=== PATIENT | male | born 1950 | race Caucasian/White ===

== ENCOUNTER 2021-07-16 07:14 | Day surgery (SDC) | payer MEDICARE, SELFPAY ==
[2021-07-05 13:54] VITALS: BMI 36.6
--- NOTE | 2021-07-12 09:59 | HO.ANESPROP2 ---
Documented by User: Joana Hicks NP 07/12/21 10:00 HPI - Anesthesia Eval Consult details Narrative: 71yo M for Upper Endoscopy and Colonoscopy Eliquis PMFSH Past Medical History Medical History (Updated 07/05/21 @ 13:57 by Kathy Calderon, RN) Anxiety and depression Arrhythmia Min's esophagus Diabetes Elevated cholesterol GERD (gastroesophageal reflux disease) History of atrial fibrillation HTN (hypertension) Hx of sepsis Hx of skin cancer, basal cell On beta kenrikc at home 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 Ulcerative colitis Surgical History Surgical History (Updated 07/05/21 @ 13:44 by Kathy Calderon, RN) H/O rotator cuff surgery History of back surgery History of cardiac radiofrequency ablation History of esophagogastroduodenoscopy (EGD) Hx of Achilles tendon repair Hx of bilateral cataract extraction Hx of cervical discectomy Hx of colonoscopy Hx of umbilical hernia repair S/P correction of deviated nasal septum S/P medial meniscus repair of right knee Social History Social History Are you a primary care technician to a significant other at home: No Do you presently have visiting nurse or other home services: No Alcohol intake: former Year quit: 1999 Patient Tobacco Use Status: Never used Tobacco Use of substances other than those prescribed or required for medical reasons: No Are you DNR?: No Advance Directives: No Advance Directives Information Provided: No Advance Directives on File: No Meds Allergies Allergy/AdvReac Type Severity Reaction Status Date / Time morphine [MORPHINE] AdvReac Mild N/V Verified 07/16/21 06:09 Home Medications Medication Instructions Recorded Confirmed Last Taken Type acetaminophen 500 mg tablet 1,000 mg PO Q6H PRN 07/05/21 07/05/21 Unknown History apixaban 5 mg tablet (Eliquis) 5 mg PO BID 07/05/21 07/05/21 07/14/21 History atorvastatin 10 mg tablet 10 mg PO BEDTIME 07/05/21 07/05/21 Unknown History balsalazide 750 mg capsule 2,250 mg PO TID 07/05/21 07/05/21 Unknown History lisinopril 40 mg tablet 40 mg PO DAILY 07/05/21 07/05/21 Unknown History metformin 1,000 mg tablet 1,000 mg PO BID 07/05/21 07/05/21 Unknown History metoprolol succinate 50 mg capsule 50 mg PO BEDTIME 07/05/21 07/05/21 Unknown History sprinkle, ext. release 24 hr hhnibiegpfhi-belfvsqp-jmtpdc tablet 1 tab PO DAILY 07/05/21 07/05/21 Unknown History omeprazole 20 mg capsule,delayed 20 mg PO BID 07/05/21 07/05/21 07/16/21 History release tamsulosin 0.4 mg capsule 0.4 mg PO BEDTIME 07/05/21 07/05/21 Unknown History tizanidine 2 mg capsule 2 mg PO TID PRN 07/05/21 07/05/21 Unknown History Exam Exam Date and Time: July 12, 2021 0959 Height,Weight and Vital Signs: Height 5 ft 10 in Weight 115.666 kg Assessment and Plan Assessment Anesthesia Assessment: Chart Reviewed Documented by User: Karen Shea MD 07/16/21 08:43 PMFSH Past Medical History Medical History (Updated 07/05/21 @ 13:57 by Kathy Calderon, RN) Anxiety and depression Arrhythmia Min's esophagus Diabetes Elevated cholesterol GERD (gastroesophageal reflux disease) History of atrial fibrillation HTN (hypertension) Hx of sepsis Hx of skin cancer, basal cell On beta kenrick at home 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 Ulcerative colitis Functional capacity: independent ambulation Family History Family history of problems with anesthesia: No Surgical History Surgical History (Updated 07/05/21 @ 13:44 by Kathy Calderon, RN) H/O rotator cuff surgery History of back surgery History of cardiac radiofrequency ablation History of esophagogastroduodenoscopy (EGD) Hx of Achilles tendon repair Hx of bilateral cataract extraction Hx of cervical discectomy Hx of colonoscopy Hx of umbilical hernia repair S/P correction of deviated nasal septum S/P medial meniscus repair of right knee History of Problems with Anesthesia: No Social History Social History Are you a primary care technician to a significant other at home: No Do you presently have visiting nurse or other home services: No Alcohol intake: former Year quit: 1999 Patient Tobacco Use Status: Never used Tobacco Use of substances other than those prescribed or required for medical reasons: No Are you DNR?: No Advance Directives: No Advance Directives Information Provided: No Advance Directives on File: No Meds Allergies Allergy/AdvReac Type Severity Reaction Status Date / Time morphine [MORPHINE] AdvReac Mild N/V Verified 07/16/21 06:09 Home Medications Medication Instructions Recorded Confirmed Last Taken Type acetaminophen 500 mg tablet 1,000 mg PO Q6H PRN 07/05/21 07/05/21 Unknown History apixaban 5 mg tablet (Eliquis) 5 mg PO BID 07/05/21 07/05/21 07/14/21 History atorvastatin 10 mg tablet 10 mg PO BEDTIME 07/05/21 07/05/21 Unknown History balsalazide 750 mg capsule 2,250 mg PO TID 07/05/21 07/05/21 Unknown History lisinopril 40 mg tablet 40 mg PO DAILY 07/05/21 07/05/21 Unknown History metformin 1,000 mg tablet 1,000 mg PO BID 07/05/21 07/05/21 Unknown History metoprolol succinate 50 mg capsule 50 mg PO BEDTIME 07/05/21 07/05/21 Unknown History sprinkle, ext. release 24 hr vsafgfcdcfme-tlabftjt-hyzsmj tablet 1 tab PO DAILY 07/05/21 07/05/21 Unknown History omeprazole 20 mg capsule,delayed 20 mg PO BID 07/05/21 07/05/21 07/16/21 History release tamsulosin 0.4 mg capsule 0.4 mg PO BEDTIME 07/05/21 07/05/21 Unknown History tizanidine 2 mg capsule 2 mg PO TID PRN 07/05/21 07/05/21 Unknown History Exam Airway Mallampati Class: IV TM Dist: >3cm Neck ROM: Full Heart: irreg. Lungs: CTA Assessment and Plan Final Anesthetic Review Family History of Problems with Anesthesia: No History of Problems with Anesthesia: No NPO: Yes ASA Class: III Final Preanesthetic Review: No Changes in Pt Med Stat, Meds/Allgs Chart Reviewed, Consent Obtained/Reviewed and Anes Risks/Benef Reviewed Patient Risk: Intermediate Procedure Risk: Low Anesthetic Plan Anesthetic Plan: MAC: Disposition: Standard PACU Documented by User: Beckie Wiley MD 07/16/21 08:24 [facility] Past Medical History Medical History (Updated 07/05/21 @ 13:57 by Kathy Calderon, RN) Anxiety and depression Arrhythmia Min's esophagus Diabetes Elevated cholesterol GERD (gastroesophageal reflux disease) History of atrial fibrillation HTN (hypertension) Hx of sepsis Hx of skin cancer, basal cell On beta kenrick at home 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 Ulcerative colitis Surgical History Surgical History (Updated 07/05/21 @ 13:44 by Kathy Calderon, RN) H/O rotator cuff surgery History of back surgery History of cardiac radiofrequency ablation History of esophagogastroduodenoscopy (EGD) Hx of Achilles tendon repair Hx of bilateral cataract extraction Hx of cervical discectomy Hx of colonoscopy Hx of umbilical hernia repair S/P correction of deviated nasal septum S/P medial meniscus repair of right knee Social History Social History Are you a primary care technician to a significant other at home: No Do you presently have visiting nurse or other home services: No Alcohol intake: former Year quit: 1999 Patient Tobacco Use Status: Never used Tobacco Use of substances other than those prescribed or required for medical reasons: No Are you DNR?: No Advance Directives: No Advance Directives Information Provided: No Advance Directives on File: No Meds Allergies Allergy/AdvReac Type Severity Reaction Status Date / Time morphine [MORPHINE] AdvReac Mild N/V Verified 07/16/21 06:09 Home Medications Medication Instructions Recorded Confirmed Last Taken Type acetaminophen 500 mg tablet 1,000 mg PO Q6H PRN 07/05/21 07/05/21 Unknown History apixaban 5 mg tablet (Eliquis) 5 mg PO BID 07/05/21 07/05/21 07/14/21 History atorvastatin 10 mg tablet 10 mg PO BEDTIME 07/05/21 07/05/21 Unknown History balsalazide 750 mg capsule 2,250 mg PO TID 07/05/21 07/05/21 Unknown History lisinopril 40 mg tablet 40 mg PO DAILY 07/05/21 07/05/21 Unknown History metformin 1,000 mg tablet 1,000 mg PO BID 07/05/21 07/05/21 Unknown History metoprolol succinate 50 mg capsule 50 mg PO BEDTIME 07/05/21 07/05/21 Unknown History sprinkle, ext. release 24 hr rtgrolordidc-ubnushxa-fqiuis tablet 1 tab PO DAILY 07/05/21 07/05/21 Unknown History omeprazole 20 mg capsule,delayed 20 mg PO BID 07/05/21 07/05/21 07/16/21 History release tamsulosin 0.4 mg capsule 0.4 mg PO BEDTIME 07/05/21 07/05/21 Unknown History tizanidine 2 mg capsule 2 mg PO TID PRN 07/05/21 07/05/21 Unknown History Exam Airway Mallampati Class: III Heart: rrr Assessment and Plan Assessment Anesthesia Assessment: Anesthesia Plan Discussed
[2021-07-16 07:17] VITALS: BP 148/68; PULSE 83; RESP 17; TEMP 36.6; O2SAT 95
[2021-07-16 07:27] LABS: Glucose, Whole Blood 148 mg/dL (60-115)
[2021-07-16] MEDS: Lactated Ringers 1,000 ML 100 ML IVCONT (07:46)
[2021-07-16] MEDS: Sodium Phosphate,Mono-Dibasic 133 ML ENEMA PR (07:46)
[2021-07-16 07:54] VITALS: BMI 23.8
[2021-07-16 07:55] VITALS: BMI 36.6
--- NOTE | 2021-07-16 08:00 | PC.NURSE ---
yellow liquid results from [facility]
[2021-07-16 09:39] VITALS: BP 156/78; PULSE 98; RESP 16; TEMP 36.2; O2SAT 98
--- NOTE | 2021-07-16 09:44 | PM.OP ---
Brief Operative Note Date of Service: 07/16/21 Pre-op diagnosis: Min's, Screening Post-op diagnosis: other (Same, Hiatal hernia, Colon polyp) Procedure: EGD with biopsies, Colonoscopy to the cecum and TI with bx, hot snare polypectomy, and placement of 3 Resolution clips Surgeon: Elias Bosch Anesthesia: MAC Was an Sales And Events Coordinator used for this Procedure?: No Estimated blood loss (mL): 3.0 Pathology: other (A. EG Junction at 39cm B. Ascending colon C. Transverse colon polyp) Condition: stable Disposition: PACU
[2021-07-16 09:54] VITALS: BP 164/78; PULSE 75; RESP 16; TEMP 36.6; O2SAT 97
--- NOTE | 2021-07-16 10:56 | OP_ITS ---
SURGEON: Elias Bosch MD PREOPERATIVE DIAGNOSIS: POSTOPERATIVE DIAGNOSIS: PROCEDURE PERFORMED: Esophagogastroduodenoscopy with biopsies and colonoscopy to the cecum and terminal ileum with biopsies, hot snare polypectomy, and placement of 3 resolution clips. Full consent was obtained from him for both procedures, including risks of bleeding and perforation. ESTIMATED BLOOD LOSS: COMPLICATIONS: ANESTHESIA: Monitored anesthesia care. ASSISTANTS: SPECIMENS: PREOPERATIVE DIAGNOSES: History of Min's esophagus, history of ulcerative colitis, history of adenomatous polyp of colon. POSTOPERATIVE DIAGNOSES: History of Min's esophagus, history of ulcerative colitis, history of adenomatous polyp of colon, hiatal hernia, colon polyp, diverticulosis, internal hemorrhoids. DESCRIPTION OF PROCEDURE: The patient was placed in the left lateral decubitus position. The Olympus video gastroscope was passed in the posterior oropharynx and upper esophagus under direct vision. The scope was passed slowly into the distal esophagus. The gastroesophageal junction appeared at 39 cm. There was a very minimal irregularity consistent with reflux and small areas of possible Min's mucosa, less than 1 cm. There was no sign of esophagitis, mass, nor ulceration. The scope entered the stomach. There was a small hiatal hernia. The scope was advanced to pylorus and the duodenum was cannulated to the descending portion. The duodenum including the bulb appeared normal without mass or ulceration. The scope was withdrawn back to the stomach. The gastric antrum and body appeared normal with good peristalsis. Scope was retroflexed visualizing the proximal stomach carefully, which appeared normal, without any sign of mass or ulceration. Scope was straightened and withdrawn back to the esophagus. Multiple biopsies were obtained at the EG junction at 39 cm. Proximal to this the esophageal mucosa appeared normal. The scope was withdrawn from the patient. He was turned around for colonoscopy. The digital rectal exam revealed no abnormalities. The [employer] video pediatric colonoscope was entered into the rectum and advanced easily to the the cecum. Once in the cecum, I did identify normal-appearing cecal pouch with appendiceal orifice and a normal-appearing ileocecal valve. The terminal ileum was cannulated and appeared normal. The scope was withdrawn back in the colon. The entire cecum and ileocecal valve appeared normal. Scope was slowly withdrawn assessing all mucosal surfaces carefully. Preparation was excellent. I did not visualize any sign of active colitis nor angiodysplasia. Random biopsies were obtained in the ascending colon. In the transverse colon, between the previously placed submucosal ink markings was some polypoid tissue approximately 2 cm in size. It appeared to be grossly hyperplastic as the previous biopsies had shown. However, given the size of it, I did use the hot snare to remove the majority of it and recovered pieces by suction. Post-polypectomy, there might have been some residual tissue, but there was no bleeding. 3 resolution clips were applied with good deployment and good hemostasis. I did not visualize any other polyps. There was no sign of any active colitis. No further biopsies were obtained as he has to go back on Eliquis. The sigmoid colon had some mild diverticulosis. In the rectum, scope was retroflexed visualizing some internal hemorrhoids and some scarring in relation to previous colitis, but no sign of any polyps. Scope was straightened and withdrawn from the patient. He tolerated both procedures well and was returned to recovery area in stable condition. IMPRESSION: 1. Colon polyp, status post hot snare polypectomy with placement of 3 resolution clips and transverse colon. 2. Mild diverticulosis. 3. Rule out dysplasia. 4. Internal hemorrhoids. 5. Hiatal hernia, history of Min's esophagus. PLAN: Results of biopsies will be checked. If there is no dysplasia within the Min's esophagus and the colon biopsies do not show any sign of adenoma nor dysplasia, I would then recommend a repeat upper endoscopy and colonoscopy within 3 years. He was advised to resume Eliquis tomorrow. He was advised to continue his current regimen for the ulcerative colitis with the balsalazide. I advised him to see me in 6 months for a followup visit, but to call sooner as needed. This has been discussed with his . MD NATHALIE Bowling/FAVIOLA / [phone] CORKY
--- NOTE | 2021-07-16 12:26 | HO.POSTANES ---
Post Anesthesia Evaluation Post Anesthesia Evaluation Vital Signs: Vital Signs Temp Pulse Resp BP Pulse Ox 07/16/21 09:54 97.8 F 75 16 164/78 H 97 07/16/21 09:39 97.2 F 98 16 156/78 H 98 07/16/21 07:17 98 F 83 17 148/68 H 95 Anesthesia: Monitored Mental Status: Awake Pain Control: Satisfactory Nausea/Vomiting: None Hydration: Adequate Anesthesia-Related Issues: No Anes. Related Issues
== END 2021-07-16 10:41 | disposition home or self-care (01) ==
PROVIDERS: PCP Internal Medicine; Visit Provider Internal Medicine
PROC: (CPT 45385; principal; 2021-07-16 08:20)
DX: K51.30 Ulcerative (chronic) 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s (principal); Z86.010 Personal history of colon polyps; K63.5 Polyp of colon; K57.30 Diverticulosis of large intestine without perforation or abscess without bleeding; K64.8 Other hemorrhoids; K22.719 Barrett's esophagus with dysplasia, unspecified; K21.9 Gastro-esophageal reflux disease without esophagitis; K44.9 Diaphragmatic hernia without obstruction or gangrene; I10 Essential (primary) hypertension; G47.33 Obstructive sleep apnea (adult) (pediatric); I48.91 Unspecified atrial fibrillation; Z79.01 Long term (current) use of anticoagulants; E11.9 Type 2 diabetes mellitus without complications; Z79.4 Long term (current) use of insulin; Z79.899 Other long term (current) drug therapy; Z99.89 Dependence on other enabling machines and devices
CPT/HCPCS: 45385; 45380; 43239; 82947; 88305

== ENCOUNTER → 2022-12-11 10:41 | Outpatient (BNVA) | payer MEDICARE, SELFPAY | PROVIDERS: PCP Internal Medicine; Visit Provider Neurological Surgery | DX: M54.9 Dorsalgia, unspecified (principal); Z98.1 Arthrodesis status | CPT/HCPCS: 99211 ==

== ENCOUNTER 2023-09-17 13:07 | Outpatient (AMB) | payer MEDICARE, SELFPAY ==
--- NOTE | 2023-09-17 13:08 | MHC.OFFVIS ---
Intake Vital Signs 09/17/23 13:20 Height 5 ft 10 in Weight 239 lb BMI 34.3 BP 130/60 Blood Pressure Location Lt brachial Position Sitting Respiration 14 Pulse 79 Pulse Source Pulse Oximeter Pulse Oximetry (%) 94 Oxygen Delivery Method Room Air Intake Visit Reasons: NECK PAIN/CERVICALGIA/CONFIRM Intake Note: Patient comes in for initial visit was referred by spine center. Reports pain 6/10. Allergies morphine [MORPHINE] Adverse Reaction (Mild, Verified 09/17/23 13:20) N/V HPI HPI Comments History of Present Illness Details Mr. Adama Camacho is very pleasant 73 years old gentleman who presents in my office with complains on pain in the cervical spine and lumbar spine he is willing to concentrate more on the pain in the cervical spine today. He states that he can not leave with pain in the lumbar spine at this moment. He reports that he had numerous surgeries of his lumbar spine and 1 surgery of his cervical spine anterior fusion. He reports that 2 discs were replaced in the cervical spine and for discs were replaced in the lumbar spine. He reports that because of his pain he is unable to sleep normally he can not do some of activities of daily living he can not take care of himself and he can not function normally. He is retired individual. His pain is mostly severe in night in the morning and less severe in the daytime. In terms of tissue damage he reports his pain is pulsing and pounding, jumping and shooting, stabbing and lancinating, pinching and crushing, tingling and wrenching, hot burning and searing, tingling and stinging, dull and heavy, tiring and exhausting, fearful and terrifying, punishing and killing, spreading and piercing, tight and tearing. He received multiple images in the past of the cervical spine and lumbar spine the reports of the preoperative MRIs of the lumbar and cervical spine are available in the chart as the copy of prior [facility] records. He received physical therapy chiropractic manipulations massage therapy acupuncture 10s unit and home traction unit he reports that none of it helped his pain in the neck or back. Past medical history significant for headaches history of alcohol abuse he is sober for 20 years he is suffering from type 2 diabetes ulcerative colitis and irritable bowel syndrome. He has arthritis he is taking Eliquis because he has atrial fibrillation in his heart. 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 [facility] Medical History (Updated 09/17/23 @ 13:29 by Santy Gibbs MD) History of atrial fibrillation Hx of sepsis Hx of skin cancer, basal cell 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 Anxiety and depression Min's esophagus GERD (gastroesophageal reflux disease) Ulcerative colitis Elevated cholesterol On beta kenrick at home Arrhythmia HTN (hypertension) Diabetes Surgical History (Updated 07/05/21 @ 13:44 by Kathy Calderon RN) History of cardiac radiofrequency ablation Hx of umbilical hernia repair H/O rotator cuff surgery S/P medial meniscus repair of right knee Hx of cervical discectomy History of back surgery Hx of bilateral cataract extraction S/P correction of deviated nasal septum Hx of Achilles tendon repair History of esophagogastroduodenoscopy (EGD) Hx of colonoscopy Social History Are you a primary date night caregiver to a significant other at home: No Do you presently have visiting nurse or other home services: No Alcohol intake: former Year quit: 1999 Patient Tobacco Use Status: Never used Tobacco Review of Systems Const Denies chills and Denies fever(s) Eyes Denies blurry vision, Denies exophthalmos and Denies diplopia ENT Reports Normal hearing present, Denies vertigo and Denies dizziness Card Denies chest pain, Denies chest pain at rest, Denies chest pain with activity, Reports diaphoresis, Denies syncope, Denies rapid heart rate, Denies pedal edema and Denies edema Resp Denies chest congestion, Denies cough, Denies hemoptysis, Denies excessive phlegm production, Denies pain on inspiration and Denies pain with cough GI Denies abdominal pain, Denies belching, Denies melena and Denies bloating Denies urinary incontinence Musc Denies as per HPI, Denies back pain and Denies tingling Neuro Reports Normal hearing present, Denies Abnormal speech present, Denies vertigo, Denies dizziness, Denies syncope, Denies lack of coordination, Denies Sensory deficit (Neuro) and Denies tingling Psych Denies no additional complaints, Denies depression, Denies irritability and Denies paranoia Physical Exam Vital Signs: Last Vital Signs Pulse 79 09/17/23 13:20 Resp 14 09/17/23 13:20 BP 130/60 09/17/23 13:20 Pulse Ox 94 09/17/23 13:20 Oxygen Delivery Method Room Air 09/17/23 13:20 BMI result Body Mass Index 34.3 Const General: cooperative and comfortable; No acute distress Nutritional Appearance: average body habitus and well nourished Orientation/consciousness: patient oriented x3 Eyes General: appearance normal, both eyes and all related structures Pupils: Equal, round and reactive pupils present EOM: EOMs intact bilaterally Neck Other: Able to flex head forward and backwards with difficulty. Reports pain aggravation with both maneuvers. Axial compression on the head does not aggravate his pain. Lateral rotation of the head aggravates pain when he turns it to the left and less to the right. There is a scar on anterior surface of the neck which demonstrates prior anterior cervical fusion. Neck: No full ROM Chest Chest palpation & inspection: normal inspection of the chest Resp Effort & Inspection: normal respiratory effort, able to speak in complete sentences, normal respiratory pattern, no audible wheezes and no cough Cardio Jugular venous distension: no JVD GI Inspection: Yes normal to inspection Back/Spine/Pelvis Other: There are 2 scars on the back of his lumbar back evident of prior surgeries. Neuro General: patient oriented x3 Cranial nerves: Yes Equal, round and reactive pupils present and Yes Normal hearing present Speech: No Abnormal speech present Gait exam (Neuro): Normal gait present Motor exam (neuro): 5/5 motor strength present throughout Sensory Exam: No Sensory deficit (Neuro) Extrem General: No pedal edema Psych Speech and movement: Normal speech and movement present Affect: normal affect Attitude: cooperative Thought process: Normal thought process present Thought content: Normal thought content present Insight: Good insight present (Psych) Judgement: Good judgement present (Psych) Assessment & Plan Assessment & Plan (1) Postlaminectomy syndrome, cervical: Code(s): M96.1 - Postlaminectomy syndrome, not elsewhere classified (2) Spondylosis of cervical region without myelopathy or radiculopathy: Code(s): M47.812 - Spondylosis without myelopathy or radiculopathy, cervical region (3) Neck pain: Code(s): M54.2 - Cervicalgia Plan I will send this patient for x-ray of the cervical spine to help me to plan future injections for this patient. I offered him today to perform diagnostic cervical medial branch block C4-C5 C6 with potential modifications after cervical spine x-ray will become available for me. I will see him after the cervical medial branch block and discuss the results of the procedure. If this will not be helpful for his neck pain I will discuss [place] scientific spinal cord stimulator for his pain control. Orders: Orders XR cervical spine 4V Today M47.812 - Spondylosis without myelopathy or radiculopathy, cervical region, M96.1 - Postlaminectomy syndrome, not elsewhere classified Patient Instructions: I here by testify that I spent 46 minutes in conversation with this patient as well as evaluating his prior records as well as planning his care and organizing this note. Coding Level of Care Code New Pt Level 4 (17332) Diagnoses Postlaminectomy syndrome, cervical M96.1 Spondylosis of cervical region without myelopathy or radiculopathy M47.812 Neck pain M54.2
[2023-09-17 13:20] VITALS: BP 130/60; PULSE 79; RESP 14; O2SAT 94; BMI 34.3
== END 2023-09-17 13:29 | disposition home or self-care (01) ==
PROVIDERS: PCP Internal Medicine; Referring Provider Neurological Surgery; Visit Provider Anesthesiology
DX: M96.1 Postlaminectomy syndrome, not elsewhere classified (principal); M47.812 Spondylosis without myelopathy or radiculopathy, cervical region; M54.2 Cervicalgia
CPT/HCPCS: 99204

== ENCOUNTER → 2023-09-17 13:07 | Outpatient (BNVA) | payer MEDICARE, SELFPAY | PROVIDERS: PCP Internal Medicine; Referring Provider Neurological Surgery; Visit Provider Anesthesiology | DX: M96.1 Postlaminectomy syndrome, not elsewhere classified (principal); M47.812 Spondylosis without myelopathy or radiculopathy, cervical region; M54.2 Cervicalgia | CPT/HCPCS: 99202 ==

== ENCOUNTER 2023-09-17 14:21 | Emergency (ER) | payer MEDICARE, SELFPAY | END 2023-09-17 16:06 | disposition left against medical advice (07) | LOC: HO.ED 16:00 | PROVIDERS: Emergency Provider Emergency Medicine; PCP Internal Medicine | DX: Z53.21 Procedure and treatment not carried out due to patient leaving prior to being seen by health care provider (principal) ==

== ENCOUNTER 2023-09-18 06:46 | Outpatient (REF) | payer MEDICARE, SELFPAY ==
--- NOTE | ~2023-09-18 | XR_ITS ---
EXAMINATION: XR CERVICAL SPINE CLINICAL INFORMATION: Spondylosis without myelopathy or radiculopathy, cervical region. COMPARISON: None available. TECHNIQUE: 6 views of the cervical spine were obtained. FINDINGS: Anterior fixation device and disc spacing device at C6-C7. No evidence of hardware fracture or loosening. Moderate disc space narrowing and anterior osteophyte formation at C4-C6. Moderate to severe neuroforaminal narrowing at C3-C4 on the left. Moderate neuroforaminal narrowing at C4-C5, bilaterally. Mild neuroforaminal narrowing at C5-C6 on the left and at C6-C7 bilaterally. No fracture or subluxation is appreciated. Mild reversal of the normal cervical lordosis, centered at C5-C6. The prevertebral soft tissues appear unremarkable. Significant calcification of the carotid bulbs, bilaterally. XR/XR cervical spine 4V IMPRESSION: Degenerative changes.
== END 2023-09-18 06:47 | disposition home or self-care (01) ==
LOC: HO.XRAY 06:46
PROVIDERS: PCP Internal Medicine; Visit Provider Anesthesiology
DX: M47.812 Spondylosis without myelopathy or radiculopathy, cervical region (principal); M96.1 Postlaminectomy syndrome, not elsewhere classified
CPT/HCPCS: 72050

== ENCOUNTER 2023-10-09 13:10 | Outpatient (AMB) | payer MEDICARE, SELFPAY ==
[2023-10-09 13:33] VITALS: BP 129/60; PULSE 77; O2SAT 96; BMI 34.9
--- NOTE | 2023-10-09 13:33 | A.OFFVIS_ITS ---
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 He has minimal anterior placed hand hardware in his cervical spine. He has reversal of cervical lordosis. I offered the patient to try bilateral diagnostic C4-C5 C6 medial branch block and if this procedure will be successful sprint PNS stimulation also bilaterally. Risks and benefits were explained to the patient, I will schedule this patient for the injection without sedation. Complains on on pain in the cervical spine and lumbar spine he is willing to concentrate more on the pain in the cervical spine today. He had numerous surgeries of his lumbar spine and 1 surgery of his cervical spine anterior fusion. He reports that 2 discs were replaced in the cervical spine and 4. discs were replaced in the lumbar spine. He received multiple images in the past of the cervical spine and lumbar spine the reports of the preoperative MRIs of the lumbar and cervical spine are available in the chart as the copy of prior [facility] records. He received physical therapy chiropractic manipulations massage therapy acupuncture 10s unit and home traction unit he reports that none of it helped his pain in the neck or back. He taking Eliquis because he has atrial fibrillation in his heart. 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 Anxiety and depression Min's esophagus GERD (gastroesophageal reflux disease) Ulcerative colitis Elevated cholesterol On beta kenrick at home Arrhythmia HTN (hypertension) Diabetes Surgical History (Updated 07/05/21 @ 13:44 by Kathy Calderon RN) History of cardiac radiofrequency ablation Hx of umbilical hernia repair H/O rotator cuff surgery S/P medial meniscus repair of right knee Hx of cervical discectomy History of back surgery Hx of bilateral cataract extraction S/P correction of deviated nasal septum Hx of Achilles tendon repair History of esophagogastroduodenoscopy (EGD) Hx of colonoscopy Social History Are you a primary career resource specialist to a significant other at home: No Do you presently have visiting nurse or other home services: No Alcohol intake: former Year quit: 1999 Patient Tobacco Use Status: Never used Tobacco Review of Systems Const All systems reviewed & are unremarkable except as noted in HPI and below ENT Reports Normal hearing present Neuro Reports Normal hearing present, Denies Abnormal speech present and Denies Sensory deficit (Neuro) Physical Exam Vital Signs: Last Vital Signs Pulse 77 10/09/23 13:33 BP 129/60 10/09/23 13:33 Pulse Ox 96 10/09/23 13:33 Oxygen Delivery Method Room Air 10/09/23 13:33 BMI result Body Mass Index 34.9 Const General: cooperative and comfortable; No acute distress Nutritional Appearance: average body habitus and well nourished Orientation/consciousness: patient oriented x3 Eyes General: appearance normal, both eyes and all related structures Pupils: Equal, round and reactive pupils present EOM: EOMs intact bilaterally Neck Other: Able to flex head forward and backwards with difficulty. Reports pain aggravation with both maneuvers. Axial compression on the head does not aggravate his pain. Lateral rotation of the head aggravates pain when he turns it to the left and less to the right. There is a scar on anterior surface of the neck which demonstrates prior anterior cervical fusion. Neck: No full ROM Chest Chest palpation & inspection: normal inspection of the chest Resp Effort & Inspection: normal respiratory effort, able to speak in complete sentences, normal respiratory pattern, no audible wheezes and no cough Cardio Jugular venous distension: no JVD GI Inspection: Yes normal to inspection Back/Spine/Pelvis Other: There are 2 scars on the back of his lumbar back evident of prior surgeries. Neuro General: patient oriented x3 Cranial nerves: Yes Equal, round and reactive pupils present and Yes Normal hearing present Speech: No Abnormal speech present Gait exam (Neuro): Normal gait present Motor exam (neuro): 5/5 motor strength present throughout Sensory Exam: No Sensory deficit (Neuro) Extrem General: No pedal edema Psych Speech and movement: Normal speech and movement present Affect: normal affect Attitude: cooperative Thought process: Normal thought process present Thought content: Normal thought content present Insight: Good insight present (Psych) Judgement: Good judgement present (Psych) Results Reviewed Results Reviewed: X-ray of the cervical spine 09/18/2023. Anterior fixation device and disc spacing device at C6-C7. No evidence of hardware fracture or loosening. Moderate disc space narrowing and anterior osteophyte formation at C4-C6. Moderate to severe neural foraminal narrowing at C3-C4 on the neural foraminal left. Moderate neural foraminal narrowing at C4-C5 bilaterally. Mild neural foraminal narrowing at C5-C6 on the left and at C6-C7 bilaterally. No fracture or subluxation is appreciated. Mild reversal of normal cervical lordosis centered at C5-C6. The prevertebral soft tissue appears unremarkable. Significant calcifications of the carotid bulbs bilaterally. Assessment & Plan Assessment & Plan (1) Postlaminectomy syndrome, cervical: Code(s): M96.1 - Postlaminectomy syndrome, not elsewhere classified (2) Spondylosis of cervical region without myelopathy or radiculopathy: Code(s): M47.812 - Spondylosis without myelopathy or radiculopathy, cervical region (3) Neck pain: Code(s): M54.2 - Cervicalgia Plan X-ray demonstrated lordosis reversal of the cervical spine as well as possible facet arthropathy. I offered this patient to go for diagnostic medial branch block C4-C5 C6 bilateral. The injection will be done without sedation. It does not look like that hardware is on my way to perform the procedure. Patient has to stop Eliquis for 3 days before the procedure and 24 hours after the procedure. If this will be successful for treatment of his pain for appropriate period of time in appropriate magnitude I will offer this patient has sprint PNS bilateral C5 possible C4 possible C6. Patient Instructions: I here by testify that I spent 35 minutes in conversation with this patient as well as evaluating his images and records and planning his future care as well as organizing this note. Coding Level of Care Code Est Pt Level 4 (21140) Diagnoses Postlaminectomy syndrome, cervical M96.1 Spondylosis of cervical region without myelopathy or radiculopathy M47.812 Neck pain M54.2
== END 2023-10-09 14:18 | disposition home or self-care (01) ==
PROVIDERS: PCP Internal Medicine; Visit Provider Anesthesiology
DX: M96.1 Postlaminectomy syndrome, not elsewhere classified (principal); M47.812 Spondylosis without myelopathy or radiculopathy, cervical region; M54.2 Cervicalgia
CPT/HCPCS: 99214

== ENCOUNTER → 2023-10-09 13:10 | Outpatient (BNVA) | payer MEDICARE, SELFPAY | PROVIDERS: PCP Internal Medicine; Visit Provider Anesthesiology | DX: M96.1 Postlaminectomy syndrome, not elsewhere classified (principal); M47.812 Spondylosis without myelopathy or radiculopathy, cervical region; M54.2 Cervicalgia | CPT/HCPCS: 99212 ==

== ENCOUNTER 2023-11-04 06:07 | Outpatient (REF) | payer MEDICARE, SELFPAY ==
--- NOTE | ~2023-11-04 | FL_ITS ---
EXAMINATION: XR FLUOROSCOPY WITH IMAGES CLINICAL INFORMATION: Spondylosis without myelopathy or radiculopathy, cervical region COMPARISON: Cervical spine 09/23/2023 TECHNIQUE: Fluoroscopy Supervised By: Dr. Gibbs. Fluoroscopy Time: 0.8 minutes. Cumulative Dose: 19.5 mGy. DAP: 0.339 Gycm2. Images: 6. FINDINGS: 6 fluoroscopic images demonstrate bilateral cervical spine injections. Fusion hardware is at C6-C7. Please see Dr. Gibbs's procedure note for full details. FL/FL guidance in treatment room IMPRESSION: Fluoroscopic guidance provided for pain management.
== END 2023-11-04 06:08 | disposition home or self-care (01) ==
LOC: CF 06:07
PROVIDERS: Visit Provider Anesthesiology
DX: M47.812 Spondylosis without myelopathy or radiculopathy, cervical region (principal); M96.1 Postlaminectomy syndrome, not elsewhere classified
CPT/HCPCS: 64490; 64491; J2795; Q9967

== ENCOUNTER 2023-11-04 07:16 | Outpatient (AMB) | payer MEDICARE, SELFPAY ==
--- NOTE | 2023-11-04 07:17 | MHC.OFFVIS ---
Vital Signs 11/04/23 07:18 11/04/23 08:07 Height 5 ft 10 in Weight 243 lb BMI 34.9 BP 136/64 140/82 H Blood Pressure Location Lt brachial Lt brachial Position Sitting Sitting Respiration 16 Pulse 64 74 Pulse Source Pulse Oximeter Pulse Oximeter Pulse Oximetry (%) 98 97 Oxygen Delivery Method Room Air Room Air Comment Pre-Op Post-Op Intake Visit Reasons: BILATERAL DIAGNOSTIC C4, C5, C6 MBB Allergies morphine [MORPHINE] Adverse Reaction (Mild, Verified 11/04/23 07:17) N/V PFSH Medical History (Updated 09/17/23 @ 15:24 by Angeline Fuentes, RN) History of atrial fibrillation Hx of sepsis Hx of skin cancer, basal cell 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 Anxiety and depression Min's esophagus GERD (gastroesophageal reflux disease) Ulcerative colitis Elevated cholesterol On beta kenrick at home Arrhythmia HTN (hypertension) Diabetes Surgical History (Updated 07/05/21 @ 13:44 by Kathy Calderon, SANDEEP) History of cardiac radiofrequency ablation Hx of umbilical hernia repair H/O rotator cuff surgery S/P medial meniscus repair of right knee Hx of cervical discectomy History of back surgery Hx of bilateral cataract extraction S/P correction of deviated nasal septum Hx of Achilles tendon repair History of esophagogastroduodenoscopy (EGD) Hx of colonoscopy Social History Are you a primary career development director to a significant other at home: No Do you presently have visiting nurse or other home services: No Alcohol intake: former Year quit: 1999 Patient Tobacco Use Status: Never used Tobacco Physical Exam Vital Signs: Last Vital Signs Pulse 74 11/04/23 08:07 Resp 16 11/04/23 07:18 BP 140/82 H 11/04/23 08:07 Pulse Ox 97 11/04/23 08:07 Oxygen Delivery Method Room Air 11/04/23 08:07 BMI result Body Mass Index 34.9 Assessment & Plan Assessment & Plan (1) Postlaminectomy syndrome, cervical: Code(s): M96.1 - Postlaminectomy syndrome, not elsewhere classified Category: Medical (2) Spondylosis of cervical region without myelopathy or radiculopathy: Code(s): M47.812 - Spondylosis without myelopathy or radiculopathy, cervical region Category: Medical (3) Neck pain: Code(s): M54.2 - Cervicalgia Category: Medical Plan: Bilateral C4-C4- C6 diagnostic medial branch block. ?Informed consent was explained to the patient. All questions were explained and answered.? The patient was taken inside the operating room where she was positioned prone on the operating table. Time-out was performed delineating correct site, side, the nature of the procedure, patient's allergy, preoperative antibiotic if needed.? All operating room staff was participating in OR time-out procedure. The back of the neck and upper back were prepped with ChloraPrep and draped with sterile towels.? Sterilely draped C-arm was brought over the operating field and sq picture of? C4-C5-C6 vertebrae were delineated on the screen.? Points of interest were delineated as lateral masses bilaterally of the vertebrae as above. The waste of each lateral mass was chosen as the target of the tip of the needles on AP view and lateral view was used as a safety view for the tips of the needles position.?? The projections of the point of interest to the skin were injected with the small amount of local anesthetic lidocaine 2% 1-1.5 cc.? After that 22 gauge5 inch? spinal needles were driven to the point of interest in tunnel vision fashion. After needles gently contacted the bone at the point of interests the needle was injected with small amount of the contrast. The injections did not demonstrate intravascular or intrathecal spread.. After that ropivacaine 0.5%-1cc. was injected into each location of the needles. Upon completion of the injections the needles were removed and sterile dressings were applied, the patient was a taken? outside of the operating room to recovery room where he recovered uneventfully. Plan X-ray demonstrated lordosis reversal of the cervical spine as well as possible facet arthropathy. I offered this patient to go for diagnostic medial branch block C4-C5 C6 bilateral. The injection will be done without sedation. It does not look like that hardware is on my way to perform the procedure. Patient has to stop Eliquis for 3 days before the procedure and 24 hours after the procedure. If this will be successful for treatment of his pain for appropriate period of time in appropriate magnitude I will offer this patient has sprint PNS bilateral C5 possible C4 possible C6. Orders: Orders FL guidance in treatment room Today M47.812 - Spondylosis without myelopathy or radiculopathy, cervical region Coding Level of Care Code Procedure Only Diagnoses Postlaminectomy syndrome, cervical M96.1 Spondylosis of cervical region without myelopathy or radiculopathy M47.812 Neck pain M54.2
[2023-11-04 07:18] VITALS: BP 136/64; PULSE 64; RESP 16; O2SAT 98; BMI 34.9
[2023-11-04 08:07] VITALS: BP 140/82; PULSE 74; O2SAT 97
== END 2023-11-04 08:08 | disposition home or self-care (01) ==
LOC: HO.PMCPRC 07:16
PROVIDERS: PCP Internal Medicine; Visit Provider Anesthesiology
DX: M47.812 Spondylosis without myelopathy or radiculopathy, cervical region (principal)
CPT/HCPCS: 64490; 64491

== ENCOUNTER 2023-11-10 08:54 | Outpatient (AMB) | payer MEDICARE, SELFPAY ==
--- NOTE | 2023-11-10 08:57 | A.OFFVIS_ITS ---
Vital Signs 11/10/23 09:03 Height 5 ft 10 in Weight 243 lb BMI 34.9 BP 140/78 H Blood Pressure Location Lt brachial Position Sitting Respiration 16 Pulse 60 Pulse Source Pulse Oximeter Pulse Oximetry (%) 97 Oxygen Delivery Method Room Air Intake Visit Reasons: BILATERAL DIAGNOSTIC C4,C5,C6 MBB Intake Note: Patient comes in for post-op appointment. Reports pain 4/10. Allergies morphine [MORPHINE] Adverse Reaction (Mild, Verified 11/10/23 09:02) N/V HPI Comments Details: is back in my office after diagnostic medial branch block C4-C5 C6 bilateral which was performed on 11/04/2023. He reported very good pain relief immediately after the procedure. She reported today 6 days after the procedure his pain is slightly elevated to 4/10 because he fell on the ground face down while fishing over the weekend. Before that his pain was 1/10 to 2/10. He was explained sprint PNS. I will schedule him for sprint PNS on the right side and after that 2 weeks apart sprint PNS on the left side. x-ray of the cervical spine was performed. He has minimal anterior placed hand hardware in his cervical spine. He has reversal of cervical lordosis. I Complains on on pain in the cervical spine and lumbar spine he is willing to concentrate more on the pain in the cervical spine today. He had numerous surgeries of his lumbar spine and 1 surgery of his cervical spine anterior fusion. He reports that 2 discs were replaced in the cervical spine and 4. discs were replaced in the lumbar spine. He received multiple images in the past of the cervical spine and lumbar spine the reports of the preoperative MRIs of the lumbar and cervical spine are available in the chart as the copy of prior [facility] records. He received physical therapy chiropractic manipulations massage therapy acupuncture 10s unit and home traction unit he reports that none of it helped his pain in the neck or back. He taking Eliquis because he has atrial fibrillation in his heart. 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 Anxiety and depression Min's esophagus GERD (gastroesophageal reflux disease) Ulcerative colitis Elevated cholesterol On beta kenrick at home Arrhythmia HTN (hypertension) Diabetes Surgical History (Updated 07/05/21 @ 13:44 by Kathy Calderon RN) History of cardiac radiofrequency ablation Hx of umbilical hernia repair H/O rotator cuff surgery S/P medial meniscus repair of right knee Hx of cervical discectomy History of back surgery Hx of bilateral cataract extraction S/P correction of deviated nasal septum Hx of Achilles tendon repair History of esophagogastroduodenoscopy (EGD) Hx of colonoscopy Social History Are you a primary child caregiver private home to a significant other at home: No Do you presently have visiting nurse or other home services: No Alcohol intake: former Year quit: 1999 Patient Tobacco Use Status: Never used Tobacco Review of Systems Const All systems reviewed & are unremarkable except as noted in HPI and below ENT Reports Normal hearing present Neuro Reports Normal hearing present, Denies Abnormal speech present and Denies Sensory deficit (Neuro) Physical Exam Const General: cooperative and comfortable; No acute distress Nutritional Appearance: average body habitus and well nourished Orientation/consciousness: patient oriented x3 Eyes General: appearance normal, both eyes and all related structures Pupils: Equal, round and reactive pupils present EOM: EOMs intact bilaterally Neck Other: Able to flex head forward and backwards with difficulty. Reports pain aggravation with both maneuvers. Axial compression on the head does not aggravate his pain. Lateral rotation of the head aggravates pain when he turns it to the left and less to the right. There is a scar on anterior surface of the neck which demonstrates prior anterior cervical fusion. Neck: No full ROM Chest Chest palpation & inspection: normal inspection of the chest Resp Effort & Inspection: normal respiratory effort, able to speak in complete sentences, normal respiratory pattern, no audible wheezes and no cough Cardio Jugular venous distension: no JVD GI Inspection: Yes normal to inspection Back/Spine/Pelvis Other: There are 2 scars on the back of his lumbar back evident of prior surgeries. Neuro General: patient oriented x3 Cranial nerves: Yes Equal, round and reactive pupils present and Yes Normal hearing present Speech: No Abnormal speech present Gait exam (Neuro): Normal gait present Motor exam (neuro): 5/5 motor strength present throughout Sensory Exam: No Sensory deficit (Neuro) Extrem General: No pedal edema Psych Speech and movement: Normal speech and movement present Affect: normal affect Attitude: cooperative Thought process: Normal thought process present Thought content: Normal thought content present Insight: Good insight present (Psych) Judgement: Good judgement present (Psych) Assessment & Plan Assessment & Plan (1) Postlaminectomy syndrome, cervical: Code(s): M96.1 - Postlaminectomy syndrome, not elsewhere classified Category: Medical (2) Spondylosis of cervical region without myelopathy or radiculopathy: Code(s): M47.812 - Spondylosis without myelopathy or radiculopathy, cervical region Category: Medical (3) Neck pain: Code(s): M54.2 - Cervicalgia Category: Medical Plan X-ray demonstrated lordosis reversal of the cervical spine as well as possible facet arthropathy. diagnostic medial branch block C4-C5 C6 bilateral resulted in profound pain relief of his axial low back pain. He does not have pain radiating into the extremities. His pain is most likely facetogenic in nature. I will schedule him for right-sided and 2 weeks after that left-sided sprint PNS. I will see him in my office after the procedure. He needs to stop Eliquis for 4 days around the procedures 3 before the injection and 1 day after. Coding Level of Care Code Est Pt Level 4 (20294) Diagnoses Postlaminectomy syndrome, cervical M96.1 Spondylosis of cervical region without myelopathy or radiculopathy M47.812 Neck pain M54.2
[2023-11-10 09:03] VITALS: BP 140/78; PULSE 60; RESP 16; O2SAT 97; BMI 34.9
== END 2023-11-10 09:16 | disposition home or self-care (01) ==
PROVIDERS: PCP Internal Medicine; Visit Provider Anesthesiology
DX: M96.1 Postlaminectomy syndrome, not elsewhere classified (principal); M47.812 Spondylosis without myelopathy or radiculopathy, cervical region; M54.2 Cervicalgia
CPT/HCPCS: 99214

== ENCOUNTER → 2023-11-10 08:54 | Outpatient (BNVA) | payer MEDICARE, SELFPAY | PROVIDERS: PCP Internal Medicine; Visit Provider Anesthesiology | DX: M96.1 Postlaminectomy syndrome, not elsewhere classified (principal); M47.812 Spondylosis without myelopathy or radiculopathy, cervical region; M54.2 Cervicalgia | CPT/HCPCS: 99212 ==

== ENCOUNTER 2023-12-09 06:10 | Outpatient (REF) | payer MEDICARE, SELFPAY ==
--- NOTE | ~2023-12-09 | FL_ITS ---
EXAMINATION: XR FLUOROSCOPY WITH IMAGES CLINICAL INFORMATION: Spondylosis cervical. COMPARISON: None available. TECHNIQUE: Fluoroscopy Supervised By: Dr. Gibbs. Fluoroscopy Time: 0.3 min. Cumulative Dose: 6.90 mGy. DAP: 0.105 Gycm2. Images: 3. FINDINGS: Intraoperative fluoroscopy and spot films were performed during a procedure in the OR. A needle is present overlying the lower cervical spine on the left. Final image demonstrates what appears to be a tiny catheter or channel filled with contrast. Cervical spine hardware is noted at what is likely C6-C7 Please [address] Dr. Gibbs's report for complete details. FL/FL guidance in treatment room IMPRESSION: Intraoperative fluoroscopy and spot films were obtained. Please see Dr. Gibbs's report for complete details.
== END 2023-12-09 06:11 | disposition home or self-care (01) ==
LOC: CF 06:10
PROVIDERS: Visit Provider Anesthesiology
DX: M47.812 Spondylosis without myelopathy or radiculopathy, cervical region (principal); M96.1 Postlaminectomy syndrome, not elsewhere classified; M54.2 Cervicalgia
CPT/HCPCS: 64555; C1778

== ENCOUNTER 2023-12-09 08:42 | Outpatient (AMB) | payer MEDICARE, SELFPAY ==
--- NOTE | 2023-12-09 08:47 | A.OFFVIS_ITS ---
Vital Signs 12/09/23 10:10 12/09/23 10:11 Height 5 ft 10 in Weight 253 lb BMI 36.3 BP 118/66 120/72 Blood Pressure Location Lt brachial Lt brachial Position Sitting Sitting Respiration 18 20 Pulse 68 74 Pulse Source Pulse Oximeter Pulse Oximeter Pulse Oximetry (%) 98 99 Oxygen Delivery Method Room Air Room Air Comment Pre-Op Post-op Intake Visit Reasons: Right C5 Sprint Allergies morphine [MORPHINE] Adverse Reaction (Mild, Verified 11/10/23 09:02) N/V PFSH Medical History (Updated 09/17/23 @ 15:24 by Angeline Fuentes, RN) History of atrial fibrillation Hx of sepsis Hx of skin cancer, basal cell 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 Anxiety and depression Min's esophagus GERD (gastroesophageal reflux disease) Ulcerative colitis Elevated cholesterol On beta kenrick at home Arrhythmia HTN (hypertension) Diabetes Surgical History (Updated 07/05/21 @ 13:44 by Kathy Calderon, SANDEEP) History of cardiac radiofrequency ablation Hx of umbilical hernia repair H/O rotator cuff surgery S/P medial meniscus repair of right knee Hx of cervical discectomy History of back surgery Hx of bilateral cataract extraction S/P correction of deviated nasal septum Hx of Achilles tendon repair History of esophagogastroduodenoscopy (EGD) Hx of colonoscopy Social History Are you a primary care director to a significant other at home: No Do you presently have visiting nurse or other home services: No Alcohol intake: former Year quit: 1999 Patient Tobacco Use Status: Never used Tobacco Physical Exam Vital Signs: Last Vital Signs Pulse 74 12/09/23 10:11 Resp 20 12/09/23 10:11 BP 120/72 12/09/23 10:11 Pulse Ox 99 12/09/23 10:11 Oxygen Delivery Method Room Air 12/09/23 10:11 BMI result Body Mass Index 36.3 Office Procedures Sprint PNS Device: Sprint PNS Device [id number] Percutaneous Peripheral Neuroelectrode Procedure: 41762 - Percutaneous Peripheral Neuroelectrode Procedure code (CPT) selection complete Office Meds lidocaine (PF) 50 mg/5 mL (1 %) injection syringe Performing Provider: Bhavya Sutton APRN, MINE CAR MECHANIC Performing Location: [facility] [place] Administered by: Santy Gibbs MD on 12/09/23 12:23 Dose Route Admin Location Dispensed Lot Number Expiration Date NDC Development Editor 5 mL subcut 5 mL Assessment & Plan Assessment & Plan (1) Postlaminectomy syndrome, cervical: Code(s): M96.1 - Postlaminectomy syndrome, not elsewhere classified Category: Medical Plan: Sprint PNS C5 on the left. Percutaneous implantation of peripheral nerve stimulation Sprint system. After the risks, benefits and alternatives were discussed with the patient and informed consent was obtained, patient was placed in the prone position and padded to foster comfort. Time out was performed delineating correct site and side of the procedure , name and of the patient, patient participated in time out procedure. Sterily draped C-arm was brought over the operating field and clear picture of the C5 lamina on the left was delineated on the screen. The upper central portion of the lamina was chosen as a target of the needle tip insertion . After identifying and marking the intended target, the skin around the planned entry point and the subcutaneous tissues were injected with local anesthetic forming skin wheal.. A percutaneous sleeve and stimulating probe lead introduction system were assembled, inserted and advanced through the skin wheal to the point of interest under C-arm view in tunnel vision fashion, the introducer needle was delivered to a location in proximity to the nerve. Multiple stimulation parameters were used to deliver stimulation to the nerve in concert with stimulating at multiple positions around the nerve. nerve target acquisition was confirmed noting generation of in the corresponding to the nerve being stimulated. Various electrical parameter combinations were tested, and the lead location was adjusted (physically relocated) until the patient indicated overlapping the distribution of the patient?s typical region of pain. The stimulating probe was removed from the introducer and a percutaneous lead was guided through the needle and delivered to a location in similar proximity to the nerve. Final location was verified with electrical stimulation. The introducer needle was removed, and the exposed end of the percutaneous lead was attached to an external stimulator unit. At the end of the case various electrical parameter combinations were again tested until the patient indicated paresthesia or muscle tension overlapping the distribution of the patient?s typical region of pain. After confirming that lead impedance was in the normal range, the external unit was detached, the needle was removed, and the lead was anchored at the skin. The lead was threaded into the connector block and electrical continuity and desired patient response was confirmed. The connector block was attached to the external stimulator unit. The site was covered with a sterile occlusive dressing and a image was taken to document final placement (2) Spondylosis of cervical region without myelopathy or radiculopathy: Code(s): M47.812 - Spondylosis without myelopathy or radiculopathy, cervical region Category: Medical (3) Neck pain: Code(s): M54.2 - Cervicalgia Category: Medical Plan X-ray demonstrated lordosis reversal of the cervical spine as well as possible facet arthropathy. diagnostic medial branch block C4-C5 C6 bilateral resulted in profound pain relief of his axial low back pain. He does not have pain radiating into the extremities. His pain is most likely facetogenic in nature. I will schedule him for right-sided and 2 weeks after that left-sided sprint PNS. I will see him in my office after the procedure. He needs to stop Eliquis for 4 days around the procedures 3 before the injection and 1 day after. Orders: Orders AMB Sprint PNS Today Bhavya Sutton APRN, MINE CAR MECHANIC M47.812 - Spondylosis without myelopathy or radiculopathy, cervical region FL guidance in treatment room Today Bhavya Sutton APRN, MINE CAR MECHANIC M47.812 - Spondylosis without myelopathy or radiculopathy, cervical region Medications: New lidocaine (PF) 5 mL subcut ONCE 5 mL 0RF Santy Gibbs MD M47.812 - Spondylosis without myelopathy or radiculopathy, cervical region Coding Level of Care Code Procedure Only Diagnoses Postlaminectomy syndrome, cervical M96.1 Spondylosis of cervical region without myelopathy or radiculopathy M47.812 Neck pain M54.2 CPT Codes Sprint PNS - Sprint PNS Device: Sprint PNS Device ([id number]) Sprint PNS - SPRINT: 80323 - Percutaneous Peripheral Neuroelectrode ([id number])
[2023-12-09 10:10] VITALS: BP 118/66; PULSE 68; RESP 18; O2SAT 98; BMI 36.3
[2023-12-09 10:11] VITALS: BP 120/72; PULSE 74; RESP 20; O2SAT 99
== END 2023-12-09 10:03 | disposition home or self-care (01) ==
PROVIDERS: PCP Internal Medicine; Visit Provider Anesthesiology
DX: M96.1 Postlaminectomy syndrome, not elsewhere classified (principal); M47.812 Spondylosis without myelopathy or radiculopathy, cervical region; M54.2 Cervicalgia
CPT/HCPCS: 64555

== ENCOUNTER 2023-12-15 08:45 | Outpatient (AMB) | payer MEDICARE, SELFPAY ==
--- NOTE | 2023-12-15 08:46 | A.OFFVIS_ITS ---
Vital Signs 12/15/23 08:53 Height 5 ft 10 in Weight 234 lb 6 oz BMI 33.6 BP 165/69 H Blood Pressure Location Lt brachial Position Sitting Respiration 18 Pulse 75 Pulse Source Pulse Oximeter Pulse Oximetry (%) 97 Oxygen Delivery Method Room Air Intake Visit Reasons: s/p Left Sprint Allergies morphine [MORPHINE] Adverse Reaction (Mild, Verified 11/10/23 09:02) N/V HPI Comments Details: is back in my office after insertion of the left-sided C5 sprint PNS. He reports significant pain reduction he reports pain 3 to 4/10. He is looking forward for right-sided insertion which is scheduled on 12/23/2023. The dressing was changed today there is no redness no swelling no pathological discharge minimal tenderness on palpation in the projection of the electrode insertion. Next appointment in the office is week after the insertion of the right-sided device. Prior: diagnostic medial branch block C4-C5 C6 bilateral which was performed on 11/04/2023. He reported very good pain relief immediately after the procedure. She reported today 6 days after the procedure his pain is slightly elevated to 4/10 because he fell on the ground face down while fishing over the weekend. Before that his pain was 1/10 to 2/10. He was explained sprint PNS. I will schedule him for sprint PNS on the right side and after that 2 weeks apart sprint PNS on the left side. x-ray of the cervical spine was performed. He has minimal anterior placed hand hardware in his cervical spine. He has reversal of cervical lordosis. I Complains on on pain in the cervical spine and lumbar spine he is willing to concentrate more on the pain in the cervical spine today. He had numerous surgeries of his lumbar spine and 1 surgery of his cervical spine anterior fusion. He reports that 2 discs were replaced in the cervical spine and 4. discs were replaced in the lumbar spine. He received multiple images in the past of the cervical spine and lumbar spine the reports of the preoperative MRIs of the lumbar and cervical spine are available in the chart as the copy of prior [facility] records. He received physical therapy chiropractic manipulations massage therapy acupuncture 10s unit and home traction unit he reports that none of it helped his pain in the neck or back. He taking Eliquis because he has atrial fibrillation in his heart. 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 Anxiety and depression Min's esophagus GERD (gastroesophageal reflux disease) Ulcerative colitis Elevated cholesterol On beta kenrick at home Arrhythmia HTN (hypertension) Diabetes Surgical History (Updated 07/05/21 @ 13:44 by Kathy Calderon RN) History of cardiac radiofrequency ablation Hx of umbilical hernia repair H/O rotator cuff surgery S/P medial meniscus repair of right knee Hx of cervical discectomy History of back surgery Hx of bilateral cataract extraction S/P correction of deviated nasal septum Hx of Achilles tendon repair History of esophagogastroduodenoscopy (EGD) Hx of colonoscopy Social History Are you a primary childcare provider to a significant other at home: No Do you presently have visiting nurse or other home services: No Alcohol intake: former Year quit: 1999 Patient Tobacco Use Status: Never used Tobacco Review of Systems Const All systems reviewed & are unremarkable except as noted in HPI and below ENT Reports Normal hearing present Neuro Reports Normal hearing present, Denies Abnormal speech present and Denies Sensory deficit (Neuro) Physical Exam Vital Signs: Last Vital Signs Pulse 75 12/15/23 08:53 Resp 18 12/15/23 08:53 BP 165/69 H 12/15/23 08:53 Pulse Ox 97 12/15/23 08:53 Oxygen Delivery Method Room Air 12/15/23 08:53 BMI result Body Mass Index 33.6 Const General: cooperative and comfortable; No acute distress Nutritional Appearance: average body habitus and well nourished Orientation/consciousness: patient oriented x3 Eyes General: appearance normal, both eyes and all related structures Pupils: Equal, round and reactive pupils present EOM: EOMs intact bilaterally Neck Other: Able to flex head forward and backwards with difficulty. Reports pain aggravation with both maneuvers. Axial compression on the head does not aggravate his pain. Lateral rotation of the head aggravates pain when he turns it to the left and less to the right. There is a scar on anterior surface of the neck which demonstrates prior anterior cervical fusion. Neck: No full ROM Chest Chest palpation & inspection: normal inspection of the chest Resp Effort & Inspection: normal respiratory effort, able to speak in complete sentences, normal respiratory pattern, no audible wheezes and no cough Cardio Jugular venous distension: no JVD GI Inspection: Yes normal to inspection Back/Spine/Pelvis Other: There are 2 scars on the back of his lumbar back evident of prior surgeries. Neuro General: patient oriented x3 Cranial nerves: Yes Equal, round and reactive pupils present and Yes Normal hearing present Speech: No Abnormal speech present Gait exam (Neuro): Normal gait present Motor exam (neuro): 5/5 motor strength present throughout Sensory Exam: No Sensory deficit (Neuro) Extrem General: No pedal edema Psych Speech and movement: Normal speech and movement present Affect: normal affect Attitude: cooperative Thought process: Normal thought process present Thought content: Normal thought content present Insight: Good insight present (Psych) Judgement: Good judgement present (Psych) Assessment & Plan Assessment & Plan (1) Postlaminectomy syndrome, cervical: Code(s): M96.1 - Postlaminectomy syndrome, not elsewhere classified Category: Medical (2) Spondylosis of cervical region without myelopathy or radiculopathy: Code(s): M47.812 - Spondylosis without myelopathy or radiculopathy, cervical region Category: Medical (3) Neck pain: Code(s): M54.2 - Cervicalgia Category: Medical Plan X-ray demonstrated lordosis reversal of the cervical spine as well as possible facet arthropathy. diagnostic medial branch block C4-C5 C6 bilateral resulted in profound pain relief of his axial low back pain. He does not have pain radiating into the extremities. His pain is most likely facetogenic in nature. He went for left sided sprint PNS C5 1st because his pain on the left is stronge r than the pain on the right. He is looking forward for the right procedure it will be C5 on the right. Coding Level of Care Code Est Pt Level 3 (09125) Diagnoses Postlaminectomy syndrome, cervical M96.1 Spondylosis of cervical region without myelopathy or radiculopathy M47.812 Neck pain M54.2
[2023-12-15 08:53] VITALS: BP 165/69; PULSE 75; RESP 18; O2SAT 97; BMI 33.6
== END 2023-12-15 09:05 | disposition home or self-care (01) ==
PROVIDERS: PCP Internal Medicine; Visit Provider Anesthesiology
DX: M96.1 Postlaminectomy syndrome, not elsewhere classified (principal); M47.812 Spondylosis without myelopathy or radiculopathy, cervical region; M54.2 Cervicalgia
CPT/HCPCS: 99024

== ENCOUNTER → 2023-12-15 08:45 | Outpatient (BNVA) | payer MEDICARE, SELFPAY | PROVIDERS: PCP Internal Medicine; Visit Provider Anesthesiology | DX: M54.2 Cervicalgia (principal); M47.812 Spondylosis without myelopathy or radiculopathy, cervical region; M96.1 Postlaminectomy syndrome, not elsewhere classified | CPT/HCPCS: 99212 ==

== ENCOUNTER 2023-12-23 06:07 | Outpatient (REF) | payer MEDICARE, SELFPAY ==
--- NOTE | ~2023-12-23 | FL_ITS ---
EXAMINATION: XR FLUOROSCOPY WITH IMAGES CLINICAL INFORMATION: Spondylosis without myelopathy. COMPARISON: Cervical spine radiographs 09/18/2023. TECHNIQUE: Fluoroscopy Supervised By: Dr. Santy Gibbs. Fluoroscopy Time: 0.1 minute. Cumulative Dose: 1.24 mGy. DAP: 0.0216 Gycm2. Images: 1. FINDINGS: Intraoperative fluoroscopy and spot films were performed during a procedure in the OR. ACDF hardware is seen at C6-C7. Thin curvilinear structures are seen overlying the lower cervical spine bilaterally. These may be related to a SPRINT peripheral nerve stimulation system. Please correlate with Dr. Santy Gibbs's report for complete details. FL/FL guidance in treatment room IMPRESSION: Intraoperative fluoroscopy and spot films were obtained. Please see Dr. Santy Gibbs's report for complete details.
== END 2023-12-23 06:08 | disposition home or self-care (01) ==
LOC: CF 06:07
PROVIDERS: Visit Provider Anesthesiology
DX: M47.812 Spondylosis without myelopathy or radiculopathy, cervical region (principal); M96.1 Postlaminectomy syndrome, not elsewhere classified
CPT/HCPCS: 64555; C1778

== ENCOUNTER 2023-12-23 08:33 | Outpatient (AMB) | payer MEDICARE, SELFPAY ==
--- NOTE | 2023-12-23 08:59 | MHC.OFFVIS ---
Vital Signs 12/23/23 10:08 12/23/23 10:09 Height 5 ft 10 in Weight 234 lb BMI 33.6 BP 142/82 H 130/70 Blood Pressure Location Lt brachial Lt brachial Position Sitting Sitting Respiration 20 18 Pulse 74 82 Pulse Source Pulse Oximeter Pulse Oximeter Pulse Oximetry (%) 98 95 Oxygen Delivery Method Room Air Room Air Comment Pre-Op Post-Op Intake Visit Reasons: Right C5 Sprint Allergies morphine [MORPHINE] Adverse Reaction (Mild, Verified 11/10/23 09:02) N/V PFSH Medical History (Updated 09/17/23 @ 15:24 by Angeline Fuentes, RN) History of atrial fibrillation Hx of sepsis Hx of skin cancer, basal cell 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 Anxiety and depression Min's esophagus GERD (gastroesophageal reflux disease) Ulcerative colitis Elevated cholesterol On beta kenrick at home Arrhythmia HTN (hypertension) Diabetes Surgical History (Updated 07/05/21 @ 13:44 by Kathy Calderon, SANDEEP) History of cardiac radiofrequency ablation Hx of umbilical hernia repair H/O rotator cuff surgery S/P medial meniscus repair of right knee Hx of cervical discectomy History of back surgery Hx of bilateral cataract extraction S/P correction of deviated nasal septum Hx of Achilles tendon repair History of esophagogastroduodenoscopy (EGD) Hx of colonoscopy Social History Are you a primary housekeeper child care to a significant other at home: No Do you presently have visiting nurse or other home services: No Alcohol intake: former Year quit: 1999 Patient Tobacco Use Status: Never used Tobacco Physical Exam Vital Signs: Last Vital Signs Pulse 82 12/23/23 10:09 Resp 18 12/23/23 10:09 BP 130/70 12/23/23 10:09 Pulse Ox 95 12/23/23 10:09 Oxygen Delivery Method Room Air 12/23/23 10:09 BMI result Body Mass Index 33.6 Office Procedures Sprint PNS Device: Sprint PNS Device [id number] Percutaneous Peripheral Neuroelectrode Procedure: 12328 - Percutaneous Peripheral Neuroelectrode Procedure code (CPT) selection complete Office Meds lidocaine (PF) 50 mg/5 mL (1 %) injection syringe Performing Provider: Santy Gibbs MD [place] [facility] [place] [facility] Documented (not given) by: Santy Gibbs MD on 12/23/23 11:13 Dose Route Admin Location Dispensed Lot Number Expiration Date NDC Strike Off Machine Operator 5 mL subcut mL Assessment & Plan Assessment & Plan (1) Postlaminectomy syndrome, cervical: Code(s): M96.1 - Postlaminectomy syndrome, not elsewhere classified Category: Medical Plan: Sprint PNS C5 on the right Percutaneous implantation of peripheral nerve stimulation Sprint system. After the risks, benefits and alternatives were discussed with the patient and informed consent was obtained, patient was placed in the prone position and padded to foster comfort. Time out was performed delineating correct site and side of the procedure , name and of the patient, patient participated in time out procedure. Sterily draped C-arm was brought over the operating field and clear picture of the C5 lamina on the right was delineated on the screen. The upper central portion of the lamina was chosen as a target of the needle tip insertion . After identifying and marking the intended target, the skin around the planned entry point and the subcutaneous tissues were injected with local anesthetic forming skin wheal.. A percutaneous sleeve and stimulating probe lead introduction system were assembled, inserted and advanced through the skin wheal to the point of interest under C-arm view in tunnel vision fashion, the introducer needle was delivered to a location in proximity to the nerve. Multiple stimulation parameters were used to deliver stimulation to the nerve in concert with stimulating at multiple positions around the nerve. nerve target acquisition was confirmed noting generation of in the corresponding to the nerve being stimulated. Various electrical parameter combinations were tested, and the lead location was adjusted (physically relocated) until the patient indicated overlapping the distribution of the patient?s typical region of pain. The stimulating probe was removed from the introducer and a percutaneous lead was guided through the needle and delivered to a location in similar proximity to the nerve. Final location was verified with electrical stimulation. The introducer needle was removed, and the exposed end of the percutaneous lead was attached to an external stimulator unit. At the end of the case various electrical parameter combinations were again tested until the patient indicated paresthesia or muscle tension overlapping the distribution of the patient?s typical region of pain. After confirming that lead impedance was in the normal range, the external unit was detached, the needle was removed, and the lead was anchored at the skin. The lead was threaded into the connector block and electrical continuity and desired patient response was confirmed. The connector block was attached to the external stimulator unit. The site was covered with a sterile occlusive dressing and a image was taken to document final placement (2) Spondylosis of cervical region without myelopathy or radiculopathy: Code(s): M47.812 - Spondylosis without myelopathy or radiculopathy, cervical region Category: Medical (3) Neck pain: Code(s): M54.2 - Cervicalgia Category: Medical Plan X-ray demonstrated lordosis reversal of the cervical spine as well as possible facet arthropathy. diagnostic medial branch block C4-C5 C6 bilateral resulted in profound pain relief of his axial low back pain. He does not have pain radiating into the extremities. His pain is most likely facetogenic in nature. I will schedule him for right-sided and 2 weeks after that left-sided sprint PNS. I will see him in my office after the procedure. He needs to stop Eliquis for 4 days around the procedures 3 before the injection and 1 day after. Orders: Orders FL guidance in treatment room Today Bhavya Sutton, DEPUTY CITY CLERK, CORRESPONDENCE ANALYST M47.812 - Spondylosis without myelopathy or radiculopathy, cervical region AMB Sprint PNS Today Santy Gibbs MD M47.812 - Spondylosis without myelopathy or radiculopathy, cervical region, M54.2 - Cervicalgia, M96.1 - Postlaminectomy syndrome, not elsewhere classified Medications: New lidocaine (PF) 5 mL subcut ONCE 5 mL 0RF Santy Gibbs MD M47.812 - Spondylosis without myelopathy or radiculopathy, cervical region, M54.2 - Cervicalgia, M96.1 - Postlaminectomy syndrome, not elsewhere classified Coding Level of Care Code Procedure Only Diagnoses Postlaminectomy syndrome, cervical M96.1 Spondylosis of cervical region without myelopathy or radiculopathy M47.812 Neck pain M54.2 CPT Codes Sprint PNS - Sprint PNS Device: Sprint PNS Device ([id number]) Sprint PNS - SPRINT: 08217 - Percutaneous Peripheral Neuroelectrode ([id number])
[2023-12-23 10:08] VITALS: BP 142/82; PULSE 74; RESP 20; O2SAT 98; BMI 33.6
[2023-12-23 10:09] VITALS: BP 130/70; PULSE 82; RESP 18; O2SAT 95
== END 2023-12-23 09:52 | disposition home or self-care (01) ==
LOC: HO.PMCPRC 08:33
PROVIDERS: PCP Internal Medicine; Visit Provider Anesthesiology
DX: M96.1 Postlaminectomy syndrome, not elsewhere classified (principal); M47.812 Spondylosis without myelopathy or radiculopathy, cervical region; M54.2 Cervicalgia
CPT/HCPCS: 64555

== ENCOUNTER 2023-12-29 09:09 | Outpatient (AMB) | payer MEDICARE, SELFPAY ==
--- NOTE | 2023-12-29 09:10 | A.OFFVIS_ITS ---
Vital Signs 12/29/23 09:29 Height 5 ft 10 in Weight 234 lb BMI 33.6 BP 146/72 H Blood Pressure Location Lt brachial Position Sitting Respiration 16 Pulse 60 Pulse Source Pulse Oximeter Pulse Oximetry (%) 96 Oxygen Delivery Method Room Air Intake Visit Reasons: s/p Right Sprint Intake Note: Patient comes in for post-op appointment. Site was cleared no redness/drainage/swelling at site. Site clean with alcohol prep pad, and new dsd/tegaderm applied. Today stimulation was set at 50 for both sides with good tolerance and reports pain level 3-4/10. Allergies morphine [MORPHINE] Adverse Reaction (Mild, Verified 12/29/23 09:29) N/V HPI Comments Details: is back in my office after insertion of the bilateral C5 sprint PNS. He reports significant pain reduction he reports pain 3 to 4/10. He reports good night's sleep he reports now in the morning he does not experience severe pain as he used to be. He is scheduled for nursing visits to change the dressing every week until 8 weeks from now. He is scheduled for removal of the device with nurses. After that appointment is needed. Prior: diagnostic medial branch block C4-C5 C6 bilateral which was performed on 11/04/2023. He reported very good pain relief immediately after the procedure. She reported today 6 days after the procedure his pain is slightly elevated to 4/10 because he fell on the ground face down while fishing over the weekend. Before that his pain was 1/10 to 2/10. He was explained sprint PNS. I will schedule him for sprint PNS on the right side and after that 2 weeks apart sprint PNS on the left side. x-ray of the cervical spine was performed. He has minimal anterior placed hand hardware in his cervical spine. He has reversal of cervical lordosis. I Complains on on pain in the cervical spine and lumbar spine he is willing to concentrate more on the pain in the cervical spine today. He had numerous surgeries of his lumbar spine and 1 surgery of his cervical spine anterior fusion. He reports that 2 discs were replaced in the cervical spine and 4. discs were replaced in the lumbar spine. He received multiple images in the past of the cervical spine and lumbar spine the reports of the preoperative MRIs of the lumbar and cervical spine are available in the chart as the copy of prior [facility] records. He received physical therapy chiropractic manipulations massage therapy acupuncture 10s unit and home traction unit he reports that none of it helped his pain in the neck or back. He taking Eliquis because he has atrial fibrillation in his heart. 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 Anxiety and depression Min's esophagus GERD (gastroesophageal reflux disease) Ulcerative colitis Elevated cholesterol On beta kenrick at home Arrhythmia HTN (hypertension) Diabetes Surgical History (Updated 07/05/21 @ 13:44 by Kathy Calderon RN) History of cardiac radiofrequency ablation Hx of umbilical hernia repair H/O rotator cuff surgery S/P medial meniscus repair of right knee Hx of cervical discectomy History of back surgery Hx of bilateral cataract extraction S/P correction of deviated nasal septum Hx of Achilles tendon repair History of esophagogastroduodenoscopy (EGD) Hx of colonoscopy Social History Are you a primary technical healthcare consultant to a significant other at home: No Do you presently have visiting nurse or other home services: No Alcohol intake: former Year quit: 1999 Patient Tobacco Use Status: Never used Tobacco Review of Systems Const All systems reviewed & are unremarkable except as noted in HPI and below ENT Reports Normal hearing present Neuro Reports Normal hearing present, Denies Abnormal speech present and Denies Sensory deficit (Neuro) Physical Exam Vital Signs: Last Vital Signs Pulse 60 12/29/23 09:29 Resp 16 12/29/23 09:29 BP 146/72 H 12/29/23 09:29 Pulse Ox 96 12/29/23 09:29 Oxygen Delivery Method Room Air 12/29/23 09:29 BMI result Body Mass Index 33.6 Const General: cooperative and comfortable; No acute distress Nutritional Appearance: average body habitus and well nourished Orientation/consciousness: patient oriented x3 Eyes General: appearance normal, both eyes and all related structures Pupils: Equal, round and reactive pupils present EOM: EOMs intact bilaterally Neck Other: Able to flex head forward and backwards with difficulty. Reports pain aggravation with both maneuvers. Axial compression on the head does not aggravate his pain. Lateral rotation of the head aggravates pain when he turns it to the left and less to the right. There is a scar on anterior surface of the neck which demonstrates prior anterior cervical fusion. Neck: No full ROM Chest Chest palpation & inspection: normal inspection of the chest Resp Effort & Inspection: normal respiratory effort, able to speak in complete sentences, normal respiratory pattern, no audible wheezes and no cough Cardio Jugular venous distension: no JVD GI Inspection: Yes normal to inspection Back/Spine/Pelvis Other: There are 2 scars on the back of his lumbar back evident of prior surgeries. Neuro General: patient oriented x3 Cranial nerves: Yes Equal, round and reactive pupils present and Yes Normal hearing present Speech: No Abnormal speech present Gait exam (Neuro): Normal gait present Motor exam (neuro): 5/5 motor strength present throughout Sensory Exam: No Sensory deficit (Neuro) Extrem General: No pedal edema Psych Speech and movement: Normal speech and movement present Affect: normal affect Attitude: cooperative Thought process: Normal thought process present Thought content: Normal thought content present Insight: Good insight present (Psych) Judgement: Good judgement present (Psych) Assessment & Plan Assessment & Plan (1) Postlaminectomy syndrome, cervical: Code(s): M96.1 - Postlaminectomy syndrome, not elsewhere classified Category: Medical (2) Spondylosis of cervical region without myelopathy or radiculopathy: Code(s): M47.812 - Spondylosis without myelopathy or radiculopathy, cervical region Category: Medical (3) Neck pain: Code(s): M54.2 - Cervicalgia Category: Medical Plan X-ray demonstrated lordosis reversal of the cervical spine as well as possible facet arthropathy. diagnostic medial branch block C4-C5 C6 bilateral resulted in profound pain relief of his axial low back pain. He does not have pain radiating into the extremities. His pain is most likely facetogenic in nature. Now sprint PNS is completed. The dressing was changed today. The patient will continue to change the dressing in the office with nurses. The removal of the device in 60 days from now. He is chronically on Eliquis. Coding Level of Care Code Est Pt Level 3 (42116) Diagnoses Postlaminectomy syndrome, cervical M96.1 Spondylosis of cervical region without myelopathy or radiculopathy M47.812 Neck pain M54.2
[2023-12-29 09:29] VITALS: BP 146/72; PULSE 60; RESP 16; O2SAT 96; BMI 33.6
== END 2023-12-29 09:29 | disposition home or self-care (01) ==
PROVIDERS: PCP Internal Medicine; Visit Provider Anesthesiology
DX: M96.1 Postlaminectomy syndrome, not elsewhere classified (principal); M47.812 Spondylosis without myelopathy or radiculopathy, cervical region; M54.2 Cervicalgia
CPT/HCPCS: 99024

== ENCOUNTER → 2023-12-29 09:09 | Outpatient (BNVA) | payer MEDICARE, SELFPAY | PROVIDERS: PCP Internal Medicine; Visit Provider Anesthesiology | DX: M96.1 Postlaminectomy syndrome, not elsewhere classified (principal); M47.812 Spondylosis without myelopathy or radiculopathy, cervical region; M54.2 Cervicalgia | CPT/HCPCS: 99212 ==

== ENCOUNTER → 2024-01-05 09:39 | Outpatient (BNVA) | payer MEDICARE, SELFPAY | PROVIDERS: PCP Internal Medicine; Visit Provider Anesthesiology | DX: Z48.01 Encounter for change or removal of surgical wound dressing (principal) | CPT/HCPCS: 99211 ==

== ENCOUNTER → 2024-01-14 09:05 | Outpatient (BNVA) | payer MEDICARE, SELFPAY | PROVIDERS: PCP Internal Medicine; Visit Provider Anesthesiology ==

== ENCOUNTER → 2024-01-21 08:27 | Outpatient (BNVA) | payer MEDICARE, SELFPAY | PROVIDERS: PCP Internal Medicine; Visit Provider Anesthesiology ==

== ENCOUNTER → 2024-01-29 08:29 | Outpatient (BNVA) | payer MEDICARE, SELFPAY | PROVIDERS: PCP Internal Medicine; Visit Provider Anesthesiology | DX: Z48.01 Encounter for change or removal of surgical wound dressing (principal) | CPT/HCPCS: 99211 ==

== ENCOUNTER 2024-02-02 08:29 | Outpatient (AMB) | payer MEDICARE, SELFPAY ==
--- NOTE | 2024-02-02 08:35 | MHC.OFFVIS ---
Vital Signs 02/02/24 08:52 Height 5 ft 10 in Weight 237 lb BMI 34.0 BP 150/72 H Blood Pressure Location Lt brachial Position Sitting Respiration 14 Pulse 60 Pulse Source Pulse Oximeter Pulse Oximetry (%) 97 Oxygen Delivery Method Room Air Intake Visit Reasons: Left Sprint removal Intake Note: Wilber comes in for left sprint removal. Left lead gave a bit of resistance their was pus discharge, lead was pulled and intact. decided to remove right sprint as well, it was pulled and intact. Site clean with alcohol prep pad, and new dsd/tegaderm applied. Today stimulation was set at 60 right side and left side 58 with good tolerance and reports pain level 3-4/10. Allergies morphine [MORPHINE] Adverse Reaction (Mild, Verified 02/02/24 09:12) N/V HPI Comments Details: is back in my office after insertion of the bilateral C5 sprint PNS. The dressing was changed today and small discharge of the pus-like fluid was noted at the left side. The decision was made to remove both of the leads today. I will start him on antibiotics cephalexin 1 g b.i.d. to treat potential infection. I explained to the patient that if they will be redness swelling pain and pathological discharge at the site of the leads insertion he would need to come back to me and I will schedule him for U.S. guided drainage with radiology. He reports significant pain reduction he reports pain 3 to 4/10 only in the morning later on in the day when he starts to move the pain is disappearing. We will see how results of the stimulation will demonstrate themselves.. He reports good night's sleep he reports now in the morning he does not experience severe pain as he used to be. The procedures of insertion were done on 12/09/2023 and 12/23/2023. Prior: diagnostic medial branch block C4-C5 C6 bilateral which was performed on 11/04/2023. He reported very good pain relief immediately after the procedure. She reported today 6 days after the procedure his pain is slightly elevated to 4/10 because he fell on the ground face down while fishing over the weekend. Before that his pain was 1/10 to 2/10. He was explained sprint PNS. I will schedule him for sprint PNS on the right side and after that 2 weeks apart sprint PNS on the left side. x-ray of the cervical spine was performed. He has minimal anterior placed hand hardware in his cervical spine. He has reversal of cervical lordosis. I Complains on on pain in the cervical spine and lumbar spine he is willing to concentrate more on the pain in the cervical spine today. He had numerous surgeries of his lumbar spine and 1 surgery of his cervical spine anterior fusion. He reports that 2 discs were replaced in the cervical spine and 4. discs were replaced in the lumbar spine. He received multiple images in the past of the cervical spine and lumbar spine the reports of the preoperative MRIs of the lumbar and cervical spine are available in the chart as the copy of prior [facility] records. He received physical therapy chiropractic manipulations massage therapy acupuncture 10s unit and home traction unit he reports that none of it helped his pain in the neck or back. He taking Eliquis because he has atrial fibrillation in his heart. 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 Anxiety and depression Min's esophagus GERD (gastroesophageal reflux disease) Ulcerative colitis Elevated cholesterol On beta kenrick at home Arrhythmia HTN (hypertension) Diabetes Surgical History (Updated 07/05/21 @ 13:44 by Kathy Calderon RN) History of cardiac radiofrequency ablation Hx of umbilical hernia repair H/O rotator cuff surgery S/P medial meniscus repair of right knee Hx of cervical discectomy History of back surgery Hx of bilateral cataract extraction S/P correction of deviated nasal septum Hx of Achilles tendon repair History of esophagogastroduodenoscopy (EGD) Hx of colonoscopy Social History Are you a primary hospice care sales consultant to a significant other at home: No Do you presently have visiting nurse or other home services: No Alcohol intake: former Year quit: 1999 Patient Tobacco Use Status: Never used Tobacco Review of Systems Const All systems reviewed & are unremarkable except as noted in HPI and below ENT Reports Normal hearing present Neuro Reports Normal hearing present, Denies Abnormal speech present and Denies Sensory deficit (Neuro) Physical Exam Vital Signs: Last Vital Signs Pulse 60 02/02/24 08:52 Resp 14 07/22/24 08:52 BP 150/72 H 02/02/24 08:52 Pulse Ox 97 02/02/24 08:52 Oxygen Delivery Method Room Air 02/02/24 08:52 BMI result Body Mass Index 34.0 Const General: cooperative and comfortable; No acute distress Nutritional Appearance: average body habitus and well nourished Orientation/consciousness: patient oriented x3 Eyes General: appearance normal, both eyes and all related structures Pupils: Equal, round and reactive pupils present EOM: EOMs intact bilaterally Neck Other: Able to flex head forward and backwards with difficulty. Reports pain aggravation with both maneuvers. Axial compression on the head does not aggravate his pain. Lateral rotation of the head aggravates pain when he turns it to the left and less to the right. There is a scar on anterior surface of the neck which demonstrates prior anterior cervical fusion. Neck: No full ROM Chest Chest palpation & inspection: normal inspection of the chest Resp Effort & Inspection: normal respiratory effort, able to speak in complete sentences, normal respiratory pattern, no audible wheezes and no cough Cardio Jugular venous distension: no JVD GI Inspection: Yes normal to inspection Back/Spine/Pelvis Other: There are 2 scars on the back of his lumbar back evident of prior surgeries. Neuro General: patient oriented x3 Cranial nerves: Yes Equal, round and reactive pupils present and Yes Normal hearing present Speech: No Abnormal speech present Gait exam (Neuro): Normal gait present Motor exam (neuro): 5/5 motor strength present throughout Sensory Exam: No Sensory deficit (Neuro) Extrem General: No pedal edema Psych Speech and movement: Normal speech and movement present Affect: normal affect Attitude: cooperative Thought process: Normal thought process present Thought content: Normal thought content present Insight: Good insight present (Psych) Judgement: Good judgement present (Psych) Assessment & Plan Assessment & Plan (1) Postlaminectomy syndrome, cervical: Code(s): M96.1 - Postlaminectomy syndrome, not elsewhere classified Category: Medical (2) Spondylosis of cervical region without myelopathy or radiculopathy: Code(s): M47.812 - Spondylosis without myelopathy or radiculopathy, cervical region Category: Medical (3) Neck pain: Code(s): M54.2 - Cervicalgia Category: Medical Plan X-ray demonstrated lordosis reversal of the cervical spine as well as possible facet arthropathy. diagnostic medial branch block C4-C5 C6 bilateral resulted in profound pain relief of his axial low back pain. Sprint PNS was established on 12/09/23 on the left and 12/23/23 on the right. Today upon removal on the left we discovered small post discharge. I will start him on antibiotics as below. He reports very profound pain relief, he reports minimal discomfort only in the morning. The rest of the day when he starts to move the pain is gone. He is chronically on Eliquis. I will continue observation. Symptoms of subcutaneous infection were described to the patient. If he would develop these signs and symptoms he would need to go for U.S. guided drainage. Medications: New cephalexin 1,000 mg (2 x 500 mg) PO BID 28 caps 1RF 7 days Coding Level of Care Code Est Pt Level 3 (04531) Diagnoses Postlaminectomy syndrome, cervical M96.1 Spondylosis of cervical region without myelopathy or radiculopathy M47.812 Neck pain M54.2
[2024-02-02 08:52] VITALS: BP 150/72; PULSE 60; RESP 14; O2SAT 97; BMI 34.0
== END 2024-02-02 09:01 | disposition home or self-care (01) ==
PROVIDERS: PCP Internal Medicine; Visit Provider Anesthesiology
DX: M96.1 Postlaminectomy syndrome, not elsewhere classified (principal); M47.812 Spondylosis without myelopathy or radiculopathy, cervical region; M54.2 Cervicalgia
CPT/HCPCS: 99213

== ENCOUNTER → 2024-02-02 08:29 | Outpatient (BNVA) | payer MEDICARE, SELFPAY | PROVIDERS: PCP Internal Medicine; Visit Provider Anesthesiology | DX: M96.1 Postlaminectomy syndrome, not elsewhere classified (principal); M47.812 Spondylosis without myelopathy or radiculopathy, cervical region; M54.2 Cervicalgia; Z45.49 Encounter for adjustment and management of other implanted nervous system device | CPT/HCPCS: 99212 ==

== ENCOUNTER 2024-07-15 09:18 | Outpatient (REF) | payer MEDICARE, SELFPAY ==
--- NOTE | ~2024-07-15 | XR_ITS ---
EXAMINATION: XR KNEE, LEFT CLINICAL INFORMATION: M25.562 - Pain in left knee COMPARISON: None available. TECHNIQUE: Four views of the left knee. FINDINGS: There is maintained tricompartment joint space. There is hypertrophic bony growth arising the posterior distal femur projecting superiorly most likely an osteochondroma or an osteophyte which could arise from trauma. It appears benign. There is minimal superior patellar spurring. Soft tissue calcification is seen along the anterior superior patella. No abnormal joint effusion or loose bodies. No acute fracture or dislocation. XR/XR knee LT 4V IMPRESSION: Posterior distal femur hypertrophic bony growth most likely osteochondroma, benign. Differential diagnosis includes hypertrophic bony growth secondary to old fracture or injury. The tricompartmental joint spaces normal. There is minimal superior patellar spurring. Soft tissue calcification is seen along the anterosuperior patella at the insertion of quadriceps tendon. Electronically signed by: Tristen Maher MD 07/15/2024 10:57 AM DARVIN
--- OUTSIDE RECORDS SUMMARY | 2024-07-15 10:56 | XMS_ITS | Continuity of Care Document ---
Author Organization [facility] Address [address] [place] [address] Care Team Providers Care Burrer Operator Name Role Phone Alexandre Orr MD Primary Care Physician [id number] Date(s): 06/07/24 - 07/07/[address] [address] Attending Physician: Lamonte Fischer Admitting Physician: Lamonte Fischer Referring Physician: Lamonte Fischer Encounter Type: Triage Allergies, Adverse Reactions, Alerts Substance Criticality Severity [...] Refills, Maintenance, 12/08/21 8:21:00 AM EDT, Tablet, [facility], Partial fill upon patient request [...] Refills, Maintenance, 12/08/21 8:21:00 AM EDT, Capsule, [facility], Partial fill upon patient request [...] 3:52:00 PM EDT, Route to Pharmacy Electronically, [id number], Partial fill upon patient request if the [...] Team Personnel Name: Alexandre Orr MD Position: [facility] Outreach Member Role: PCP Address: [address] [place] [address] Internal Medicine [address] Telecom: Name: Tisha Hackett RN Position: [facility] RN Member Role: Primary Care Nurse Name: Enedina Diallo RN Position: [facility] RN Member Role: Primary Care Nurse Name: Vira Potts RN Position: [facility] RN Member Role: Primary Care Nurse Care Team Related Persons Name: REZA FRANK Insurance Providers Guarantor name: NITESH FRANK Health Plan Information #: 1 Payer: MEDICARE PART B OUTPT Member Number: NA Policy Number: NA Group Number: NA Health Plan Information #: 2 Payer: MEDEX Member Number: NA Policy Number: NA Group Number: NA
== END 2024-07-15 09:19 | disposition home or self-care (01) ==
LOC: HO.HMGCX 09:18
PROVIDERS: PCP Internal Medicine; Visit Provider Registered Nurse
DX: S83.92XA Sprain of unspecified site of left knee, initial encounter (principal)
CPT/HCPCS: 73564; 99212

== ENCOUNTER 2024-07-15 09:18 | Outpatient (AMB) | payer MEDICARE, SELFPAY ==
--- OUTSIDE RECORDS SUMMARY | 2024-07-15 09:20 | XMS_ITS | Continuity of Care Document ---
Author Organization [facility] Address [address] [place] [id number]- Care Team Providers Care Contribution Solicitor Name Role Phone Alexandre Orr MD Primary Care Physician Encounter [facility] [id number] Date(s): 05/06/24 - 06/18/[address] [address]- Encounter Diagnosis Plantar fascial fibromatosis(Final) - Discharge Disposition: A-D/C Home Attending Physician: Hai Ryan MD Admitting Physician: Not on Staff, Admitting MD Referring Physician: Hai Ryan MD Encounter Type: Disch Recurring OP Allergies, Adverse Reactions, Alerts Substance Criticality Severity Reaction Reaction Severity Status morphine Active Medications acetaminophen 325 mg oral tablet 650 mg, By Mouth, Every 6 hours, May take OTC not to exceed 3000 mg/day, Refills 0, Maintenance, 12/08/21 8:22:00 AM EDT, Partial fill upon patient request if the prescription is for a schedule II opioid drug. Start Date: 12/08/21 Status: Ordered Repeat number: 1 amLODIPine 2.5 mg oral tablet 2.5 mg, 1, tablet, By Mouth, Daily, # 30 tablet, Refills 0, Maintenance, 12/06/21 7:35:00 AM EDT, Partial fill upon patient request if the prescription is for a schedule II opioid drug. Start Date: 12/06/21 Status: Ordered Quantity: 30.0 Unit: tablet Repeat number: 1 apixaban 2.5 mg oral tablet 1 tablet = 2.5 mg, By Mouth, 2 times a day, For the first 7 days post-op, # 14 tablet, 0 Refills, Maintenance, 12/08/21 8:21:00 AM EDT, Tablet, [facility], Partial fill upon patient request if the prescription is for a schedule II opioid drug., 178, cm, 12/08/21 7:00:00 EDT, Height, 110.9, kg, 12/07/21 8:02:00 EDT, Dry Weight Start Date: 12/08/21 Stop Date: 12/15/21 Status: Ordered Quantity: 14.0 Unit: tablet Repeat number: 1 atorvastatin 10 mg oral tablet 1 tablet = 10 mg, By Mouth, Daily, # 90 tablet, 0 Refills, Maintenance, 06/04/21 6:41:00 AM EST, Partial fill upon patient request if the prescription is for a schedule II opioid drug. Start Date: 06/04/21 Status: Ordered Quantity: 90.0 Unit: tablet Repeat number: 1 balsalazide 750 mg oral capsule 2250 mg, 3, capsule, By Mouth, 3 times a day, 0 Refills Start Date: 07/26/08 Status: Ordered Repeat number: 1 docusate sodium 100 mg oral capsule 1 capsule = 100 mg, By Mouth, 2 times a day, # 60 capsule, 0 Refills, Maintenance, 12/08/21 8:21:00 AM EDT, Capsule, [facility], Partial fill upon patient request if the prescription is for a schedule II opioid drug., 178, cm, 12/08/21 7:00:00 EDT, Height, 110.9, kg, 12/07/21 8:02:00 EDT, Dry Weight Start Date: 12/08/21 Status: Ordered Quantity: 60.0 Unit: capsule Repeat number: 1 Eliquis Starter Pack 5 mg oral tablet 1 tablet = 5 mg, By Mouth, 2 times a day, 1 tablet (5 mg ) twice a day, # 74 tablet, 0 Refills, Maintenance, 06/04/21 6:40:00 AM EST, Partial fill upon patient request if the prescription is for a schedule II opioid drug. Start Date: 06/04/21 Stop Date: 06/11/21 Status: Ordered Quantity: 74.0 Unit: tablet Repeat number: 1 gabapentin 100 mg oral capsule 100 mg, 1, capsule, By Mouth, 3 times a day, # 270 capsule, Refills 3, Tot. Refills 3, Maintenance,05/07/23 3:52:00 PM EDT, Route to Pharmacy Electronically, [id number], Partial fill upon patient request if the prescription is for a schedule II opioid drug., 178, cm, 05/06/23 16:45:00 EDT, Height, 110.9, kg, 12/07/21 8:02:00 EDT, Dry Weight Start Date: 05/07/23 Status: Ordered Quantity: 270.0 Unit: capsule Repeat number: 4 glipizide 5 mg oral tablet 5 mg, 1, tablet, By Mouth, Daily, 0 Refills Start Date: 07/26/08 Status: Ordered Repeat number: 1 lisinopril 10 mg oral tablet 10 mg, 1, tablet, By Mouth, Daily Start Date: 07/26/08 Status: Ordered Repeat number: 1 metFORMIN 1000 mg oral tablet 1 tablet = 1,000 mg, By Mouth, 2 times a day, # 60 tablet, 0 Refills, Maintenance, 06/04/21 6:42:00AM EST, Tablet, Partial fill upon patient request if the prescription is for a schedule II opioid drug. Start Date: 06/04/21 Status: Ordered Quantity: 60.0 Unit: tablet Repeat number: 1 metoprolol 50 mg oral tablet, extended release 50 mg, 1, tablet, By Mouth, Daily, # 30 tablet, Refills 0, Maintenance, 06/04/21 6:42:00 AM EST, Partial fill upon patient request if the prescription is for a schedule II opioid drug. Start Date: 06/04/21 Status: Ordered Quantity: 30.0 Unit: tablet Repeat number: 1 MiraLax Powder 1 pack/packet = 17 Gm, By Mouth, Daily, PRN Constipation, 0 Refills, Maintenance, 12/08/21 8:22:00 AM EDT, Powder, Partial fill upon patient request if the prescription is for a schedule II opioid drug. Start Date: 12/08/21 Status: Ordered Repeat number: 1 omeprazole 20 mg oral delayed release tablet 1 tablet = 20 mg, By Mouth, 2 times a day, # 30 tablet, 0 Refills, Maintenance, 06/04/21 6:42:00 AMEST, EC Tablet, Partial fill upon patient request if the prescription is for a schedule II opioid drug. Start Date: 06/04/21 Status: Ordered Quantity: 30.0 Unit: tablet Repeat number: 1 senna 187 mg oral tablet 1 tablet = 8.6 mg, By Mouth, Daily at bedtime, PRN as needed for constipation, 0 Refills, Maintenance, 12/08/21 8:22:00 AM EDT, Tablet, Partial fill upon patient request if the prescription is for a schedule II opioid drug. Start Date: 12/08/21 Status: Ordered Repeat number: 1 Soliqua 100/33 = 60 units, Subcutaneous Infusion, 0 Refills, Maintenance, 06/04/21 6:41:00 AM EST, Partial fill upon patient request if the prescription is for a schedule II opioid drug. Start Date: 06/04/21 Status: Ordered Repeat number: 1 tamsulosin 0.4 mg oral capsule 0.4 mg, 1, capsule, By Mouth, Daily, # 30 capsule, Refills 0, Maintenance, 06/04/21 6:52:00 AM EST,Partial fill upon patient request if the prescription is for a schedule II opioid drug. Start Date: 06/04/21 Status: Ordered Quantity: 30.0 Unit: capsule Repeat number: 1 Problem List Condition Confirmation Course Effective Dates Status H ealth Status Informant Allergic rhinitis Confirmed Active BPH without urinary obstruction Confirmed Active History of atrial fibrillation Confirmed Active H/O cardiac radiofrequency ablation Confirmed Active HYPERTENSION Confirmed Active Anticoagulant long-term use Confirmed Active Obesity Confirmed Active Obstructive sleep apnea Confirmed Active Type 2 diabetes mellitus with insulin therapy Confirmed Active Ulcerative colitis Confirmed Active Social History Social History Type Response Tobacco Other: Non-smoker. Sex Sex Representation Male (finding) Patient Care team information Care Team Personnel Name: Alexandre Orr MD Position: [facility] Outreach Member Role: PCP Address: [address] [place] [address] Internal Medicine [place], [place] [address] Telecom: Name: Tisha Hackett RN Position: [facility] RN Member Role: Primary Care Nurse Name: Enedina Diallo RN Position: [facility] RN Member Role: Primary Care Nurse Name: Vira Potts RN Position: [facility] RN Member Role: Primary Care Nurse Care Team Related Persons Name: REZA FRANK Insurance Providers Guarantor name: NITESH FRANK Apmet[employer] Plan Information #: 3 Payer: [employer] FF NON BHP HMO Member Number: [id number] Policy Number: OLE Group Number: [id number] Health Plan Information #: 2 Payer: MEDEX Member Number: [id number] Policy Number: OLE Group Number: OLE Health Plan Information #: 1 Payer: MEDICARE PART B OUTPT Member Number: [id number] Policy Number: OLE Group Number: NA
--- OUTSIDE RECORDS SUMMARY | 2024-07-15 09:21 | XMS_ITS ---
Author Organization [facility] Address [address] [place] [id number] Care Team Providers Care Sales Director Name Role Phone Alexandre Orr MD Primary Care Provider Elias De León Unavailable [phone] ALLERGIES Allergen (clinical drug ingredient) Drug/Non Drug Allergy documented on EMR Reaction Allergy Type Onset Date Status morphine Morphine Sulfate Unknown Drug Allergy Active escitalopram Lexapro Unknown Drug Allergy Acti ve REASON FOR VISIT Patient presents today for escobedo's MEDICATIONS Medication SIG (Take, Route, Frequency, Duration) Notes Start Date End Date Status Cholecalciferol 50 MCG (1999) 1 tablet Orally Once a day for 30 day(s) Active Cyanocobalamin 1000 MCG 1 tablet Orally Once a day for 30 day(s) Active Omeprazole 20 mg TAKE ONE CAPSULE BY MOUTH EVERY MORNING Unknown Gabapentin 400 MG Oral for 90 Active Basaglar KwikPen 100 UNIT/ML Subcutaneous for 25 Active Imodium A-D 2 MG 1 tablet Orally BID prn Active Ozempic (0.25 or 0.5 MG/DOSE) 2 MG/3ML INJECT 0.5MG UNDER THE SKIN EVERY 7 DAYS Subcutaneous for 28 Active Tylenol Extra Strength Active metFORMIN HCl 500 MG 1 tablet with meals Orally Twice a day Active Balsalazide Disodium 750 MG [address] ee times a day for 90 days 08/07/2022 Active Eliquis 5 MG 1 tab Orally two ming es a day Active Omeprazole 20 MG TAKE 1 CAPSULE BY MO UTH EVERY MORNING AND TAKE 1 CAPSULE EVERY EVENING for 90 Active Atorvastatin Calcium 10 MG 1 tablet Oral ly Once a day Active Omeprazole 20 MG 1 Orally Twice a day for 90 days 07/15/2023 Active amLODIPine Besylate 5 MG 1 tablet Orally Once a day Active Metoprolol Succinate ER 50 MG Oral for 90 Active Lisinopril 40 MG 1 tablet Orally Once a day Active metFORMIN HCl ER 500 MG Oral for 90 Active Bktp-Sqxhp-UPS-Boswellia-Vi t D - as directed Orally Active Loperamide HCl 2 MG 1 capsule as needed Orally Four times a day Active VITAL SIGNS BMI 34.64 kg/m2 04/27/2024 Blood pressure systolic 00 mm Hg 04/27/20 24 Blood pressure diastolic 00 mm Hg 024 Height 69.5 in 04/27/2024 Weight 238 lbs 04/27/2024 Encounters Encounter Location Date Provider Diagnosis [facility] 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 ; Ulcerative colitis without complications, unspecified location K51.90 ; Constipation, unspecified constipation type K59.00 ; Gastroesophageal reflux disease without esophagitis K21.9 ; History of adenomatous polyp of colon Z86.010 and Encounter for screening for malignant neoplasm of colon Z12.11 ASSESSMENTS Encounter Date Diagnosis Assessment Notes Treatment Notes Treatment Clinical Notes 04/27/2024 Escobedo's esophagus with dysplasia (ICD-10 - K22.719) DO NOT TAKE THE OZEMPIC FOR AT LEAST 7 DAYS BEFORE THE PROCEDURES STOP THE ELIQUIS FOR THREE DAYS BEFORE THE PROCEDURES DO NOT TAKE THE METFORMIN THE NIGHT BEFORE OR ON THE MORNING OF THE PROCEDURES TAKE ONLY 1/2 THE USUAL INSULIN THE DAY BEFORE AND ON THE MORNING OF THE PROCEDURES 04/27/2024 Ulcerative colitis without complications, unspecified location (ICD-10 - K51.90) 04/27/2024 Constipation, unspecified constipation type (ICD-10 - K59.00) 04/27/2024 Gastroesophageal ref lux disease without esophagitis (ICD-10 - K21.9) 04/27/2024 History of adenomato us polyp of colon (ICD-10 - Z86.010) 04/27/2024 Encounter for screen ing for malignant neoplasm of colon (ICD-10 - Z12.11) PLAN OF TREATMENT Treatment Notes Assessment Notes Escobedo's esophagus with dysplasia DO NOT TAKE THE OZEMPIC FOR AT LEAST 7 DAYS BEFORE THE PROCEDURES STOP THE ELIQUIS FOR THREE DAYS BEFORE THE PROCEDURES DO NOT TAKE THE METFORMIN THE NIGHT BEFORE OR ON THE MORNING OF THE PROCEDURES TAKE ONLY 1/2 THE USUAL INSULIN THE DAY BEFORE AND ON THE MORNING OF THE PROCEDURES Future Test Test Name Order Date UPPER GI ENDOSCOPY 04/27/2024 COLONOSCOPY 04/27/2024 Next Appt Details Follow Up: prn, Reason: Provider Name:Elias Bosch , 08/23/2024 09:10:00 AM, [address] [place] [address], [phone], Progress Notes * Examination Category Sub-Category Detail Notes General Examination GENERAL APPEARANCE: pleasant , well nourished, well developed, in no acute distress EYES: sclera non-icteric NECK/THYROID: no cervical lymphade nopathy, neck supple HEART: S1, S2 normal LUNGS: clear to auscultatio n bilaterally ABDOMEN: normal bowel sounds, no guarding or rigidity, no hepatosplenomegaly, no masses palpable, soft, nontender, nondistended. NEUROLOGIC: alert and oriented SKIN: nonjaundiced, no spi jesse angiomata. EXTREMITIES: no edema ORAL CAVITY: mucosa moist
--- OUTSIDE RECORDS SUMMARY | 2024-07-15 09:21 | XMS_ITS ---
Author Organization [facility] Address [address] [place] [address] Care Team Providers Care Stock Puller Name Role Phone Alexandre Orr MD Primary Care Provider Jordin Julian Unavailable [phone] Allergies Allergen (clinical drug ingredient) Drug/Non Drug Allergy documented on EMR Reaction Allergy Type Onset Date Status morphine Morphine Unknown Drug Allergy Active REASON FOR VISIT At Risk Footcare, Toe Irritation Medications Medication SIG (Take, Route, Frequency, Duration) Notes Start Date End Date Status Soliqua 100-33 UNT-MCG/ML Subcutaneous for 50 Not-Taki ng Celecoxib 200 MG Oral for 90 N ot-Taking Doxycycline Hyclate 100 MG Oral for 12 Not-Taking Cephalexin 500 MG 1 capsule Orally maria g ry 8 hrs for 10 days Not-Taking Meloxicam 15 MG Oral for 30 No t-Taking Eliquis Active Metoprolol Tartrate 50 MG Oral for 30 Active Extra Depth Orthopedic Shoes (1 Pair) with Customized Heat Molded Multidensity Innersoles (3 Pair) as directed Dx: NIDDM/Polyneuropathy (E11.42), Hammertoe Foot Deformity (M20.41,M20.42), Preulcerative Skin Lesion(s) (L85.1 01/05/2024 Active metFORMIN HCl ER 500 MG Oral for 90 Active Atorvastatin Calcium 10 MG Oral for 90 Active Balsalazide Disodium 750 MG Oral for 90 Active Omeprazole 20 MG Oral for 90 A ctive Mens Multivitamin Ac tive Vitamin B12 Active Lisinopril 10 MG Oral for 30 A ctive Loperamide HCl Activ e Gvoke HypoPen Active Gabapentin Active amLODIPine Besylate 5 MG 1 tablet Orally Once a day Active Ozempic Active Social History Tobacco Use: Social History Observation Description Date Details (start date - stop date) Never Smoker NA - NA Tobacco Use/Smoking Question Answer Notes Are you a: nonsmoker Additional Findings: Tobacco Non-User Current no n-smoker Alcohol Screen Question Answer Notes Did you have a drink containing alcohol in the p ast year? No Points 0 Interpretation Negative Tobacco use other than smoking: Question Answer Notes Are you an other tobacco user? No Vital Signs Height 5ft 10in in 03/19/2024 Weight 245 lbs 03/19/2024 BMI 35.15 kg/m2 03/19/2024 Procedures Procedure Date Ordered Date Performed Result Body Sit e 90204-GVIMCUU NAIL, 6 OR MORE 03/19/2024 N/A 05229-OKZO SKIN LESIONS, OVER 4 03/19/2024 N/A Encounters Encounter Location Date Provider Diagnosis [facility] [address] [address] 03/19/2024 Jordin De La Fuente Type 2 diabetes mellitus with diabetic polyneuropathy E11.42 ; Tinea unguium B35.1 ; Other hammer toe(s) (acquired), right foot M20.41 and Other hammer toe(s) (acquired), left foot M20.42 Assessments Encounter Date Diagnosis (ICD Code) Assessment Notes Treatment Notes Treatment Clinical Notes Section Notes 03/19/2024 Type 2 diabetes mellitus with diabetic polyneuropathy (ICD-10 - E11.42) 03/19/2024 Tinea unguium (ICD-10 - B35.1) 03/19/2024 Other hammer toe(s) (acquired), right foot (ICD-10 - M20.41) Response to treatment,Impro vement 03/19/2024 Other hammer toe(s) (acquired), left foot (ICD-10 - M20.42) Response to treatment,Impro vement Plan Of Treatment Pending Test Test Name Order Date [id number]-PXGLNIT NAIL, 6 OR MORE 03/19/2024 45415-OZQM SKIN LESIONS, OVER 4 03/19/20 24 Next Appt Details Follow Up: prn, Reason: Provider Name:Jordin De La Fuente , 09/10/2024 12:15:00 PM, [address] [place] [address], [phone], Procedure Notes * Category Sub-Category Detail Notes Debride Nail 6-10 Nail debridement Performance o f this nail treatment by a nonprofessional would put this patients foot and overall health at risk. Therefore, nail debridement was performed extensively to reduce/remove overall nail length, girth, thickness, subungual debris, and necrotic tissue, by manual and/or electrical means through the use of a nail nipper and/or dremel-type roll grinder, to a more viable healthy nail plate or bed tissue 6-10. Silver nitrate used for any petechial bleeding as necessary. Definitive antifungal treatment options have been reviewed and discussed with the patient. The patient chooses, no pharmaceutical tx - 54017 Keratoma Treatment Parring or Cutting o f Benign Hyperkeratotic Lesion(s) (-57) More than 4 Lesions - The Benign hyperkeratotic lesions, as described above were pared, and/or cut utilizing a sterile 15 blade, tissue nippers, and/or dremel - 61424 Progress Notes * Hosea CAMACHO MDOB:1950 (73 yo M)Acc No.[id number]:03/19/2024 Progress Note Patient:?DougHosea vaca Lynn Provider:?Jordin De La Fuente DPM :1950???Age:73 Y???Sex:Male Lloyd e:03/19/2024 Address:[address] [place], [place] [id number] Pcp:Alexandre Orr MD Subjective: * Chief Complaints: * ???At Risk FootcareToe Irrit ation * HPI: ???At Risk footcare:?Pt States Last PCP Visit:?Date?11/21/2023 ???Toe pain:?Treatments:?Rx shoes .? * ROS:?General/Constitutional:?Nausea?denies.?Vomiting?denies.?Hunger Thirst?denies.?Loss appetite?denies.?Chills?denies.?Fatigue?denies.?Fever?denies.?Night Sweats?denies.?Unexplained weight loss?denies.?Unexplained weight gain?denies.?HEENTM:?Dentures?denies.?Dizziness?denies.?Glasses/contacts?admits.?Retinopathy?de nies.?Blurred/double vision?denies.?TMJ?denies.?Discharge/drainage?denies.?Implants?denies.?Sore throat?denies.?Dental implants?denies.?Hard of hearing ?denies.?Difficulty chewing/swallowing/speaking?denies.?Nose bleeds?denies.?Sore mouth?denies.?Respiratory:?On Oxygen?denies.?Pneumonia/pleurisy?denies.?Bronchitis?denies.?Emphysema?denies.?C oughing?denies.?Cough blood?denies.?Shortness of breath?denies.?Wheezing?denies.?Cardiovascular:?Pacemaker?denies.?MVP?denies.?WPW?denies.?CHF?denies.?Heart attack?denies.?Septal defect?denies.?Rapid beat?denies.?Chest pain ?denies.?Atrial Fib.?denies.?Murmur/Palpitations?denies.?Gastrointestinal:?Hemorrhoids?denies.?Stomach/Abdominal pain?denies.?Dark blood stool?denies.?Irritable bowel ?admits.?Constipation?denies.?Diarrhea?denies.?Hematology:?Swelling?denies.?Clots?denies.?Varicose Veins?denies.?Bruising?admits, on anticoagulants.?Bleeding problem?admits, on anticoagulants.?Genitourinary:?Blood urine?denies.?Frequent/Painfu/urination/bladder control?denies.?Kidney stones?denies.?Infection (UTI)?denies.?Nephropathy?denies.?sex trans dis (STD)?denies.?Prostate?denies.?Musculoskeletal:?Hammertoes?admits.?Bunions?denies.?Back Pain?admits.?Muscle Cramps/ Resting?denies.?Muscle cramps / walking?admits.?Generalized aches and pains?admits.?Weakness?denies.?Integ.:?Díaz?denies.?Scars?denies.?Corns/calluses?admits.?Ingrown nails?admits.?Painful nails?denies.?Open Sores?denies.?Rashes?denies.?Neurologic:?Difficulty sleeping?denies.?Brain disorder?denies.?Numbness?admits.?Balance trouble?admits.?Confusion?denies.?Fainting/blackouts?denies.?Tingling?admits.?Tr emors?denies.? * Medical History:? 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 * Social History:?Tobacco Use:?Tobacco Use/Smoking?Are you a:?nonsmoker ?Additional Findings: Tobacco Non-User?Current non-smoker ?Tobacco use other than smoking?Are you an other tobacco user??No ???Drugs/Alcohol:?Drugs?Have you used drugs other than those for medical reasons in the past 12 months??No ?Alcohol Screen?Did you have a drink containing alcohol in the past year??No ?Points?0 ?Interpretation?Negative ???Miscellaneous:?Caffeine: yes, frequency:, 1-2 cups per day. ?Children: yes, 2. ?Exercise: yes, walking. ?Marital status: . 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 * Medications:?TakingOzempic L operamide HCl Gvoke HypoPen Gabapentin amLODIPine Besylate 5 MG Tablet 1 tablet Orally Once a dayMens Multivitamin Vitamin B12 Lisinopril 10 MG Tablet Oral Balsalazide Disodium 750 MG Capsule Oral Omeprazole 20 MG Capsule Delayed Release Oral metFORMIN HCl ER 500 MG Tablet Extended Release 24 Hour Oral Atorvastatin Calcium 10 MG Tablet Oral Eliquis Metoprolol Tartrate 50 MG Tablet Oral Extra Depth Orthopedic Shoes (1 Pair) with Customized Heat Molded Multidensity Innersoles (3 Pair) as directed Dx: NIDDM/Polyneuropathy (E11.42), Hammertoe Foot Deformity (M20.41,M20.42), Preulcerative Skin Lesion(s) (L85.1Taking Ozempic Taking Loperamide HCl Taking Gvoke HypoPen Taking Gabapentin Taking amLODIPine Besylate 5 MG Tablet 1 tablet Orally Once a dayTaking Mens Multivitamin Taking Vitamin B12 Taking Lisinopril 10 MG Tablet Oral Taking Balsalazide Disodium 750 MG Capsule Oral Taking Omeprazole 20 MG Capsule Delayed Release Oral Taking metFORMIN HCl ER 500 MG Tablet Extended Release 24 Hour Oral Taking Atorvastatin Calcium 10 MG Tablet Oral Taking Eliquis Taking Metoprolol Tartrate 50 MG Tablet Oral Taking Extra Depth Orthopedic Shoes (1 Pair) with Customized Heat Molded Multidensity Innersoles (3 Pair) as directed Dx: NIDDM/Polyneuropathy (E11.42), Hammertoe Foot Deformity (M20.41,M20.42), Preulcerative Skin Lesion(s) (L85.1Not- Taking/PRNSoliqua 100-33 UNT-MCG/ML Solution Pen-injector Subcutaneous Cephalexin 500 MG Capsule 1 capsule Orally every 8 hrsMeloxicam 15 MG Tablet Oral Doxycycline Hyclate 100 MG Tablet Oral Celecoxib 200 MG Capsule Oral Medication List reviewed and reconciled with the patientNot-Taking/PRN Soliqua 100-33 UNT-MCG/ML Solution Pen-injector Subcutaneous Not-Taking/PRN Cephalexin 500 MG Capsule 1 capsule Orally every 8 hrsNot-Taking/PRN Meloxicam 15 MG Tablet Oral Not-Taking/PRN Doxycycline Hyclate 100 MG Tablet Oral Not-Taking/PRN Celecoxib 200 MG Capsule Oral Medication List reviewed and reconciled with the patient * Allergies:?Morphineyes[Aller gies Verified] Objective: * Vitals:?Ht: 5ft 10in, Wt:245 , BMI:35.15, Shoe size:10W, BS:130. * ???Past Orders: ???Lab:HEMOGLOBIN A1C (GLYCO HEMOGLOBIN) (Order Date - 01/05/2024) (Collection Date - 01/05/2024) ? Value Reference Range ?HEMOGLOBIN A1C % (HH) 7.3 * Examination: ???Neurological: ?SENSORY:? Neurological exam demonstrates, reduced light touch sensation, reduced sharp/dull pin prick discrimination , B/L, 5.07 monofilament test performed at plantar aspects of 5 varied sites per foot shows sensation, reduced , B/L.?Nails: ?NAILS are:?Elongated, overgrown, dystrophic, lytic, greater than 3mm thick, discolored and friable with crumbly malodorous subungual debris , 1-5 B/L.?Dermatologic: ?SKIN FINDINGS:?Skin exam reveals Keratotic lesion(s) located at, SUB MTH (s) 1 B/L, SUB MTH (s), 5 B/L, Heel(s) B/L.?Orthopedic: ?DIGITAL DEFORMITIES:?Digital contracture, PIPJ, 2-5 B/L, incompl-reducible with WB, or to push-up test, no over, nor underlapping.?FOOTWEAR:?good condition, exhibit proper fit and accommodation for pedal deformities. OT were inspected and noted to be worn, but in good condition giving proper support at the present time.? Assessment: * Assessment: 1.?Type 2 diabetes mellitus with diabetic polyneuropathy - E11.42 (Primary)?2.?Tinea unguium - B35.1?3.?Other hammer toe(s) (acquired), right foot - M20.41, Chronic problem, Stable (1=3,2=4), Response to treatment,Improvement?4.?Other hammer toe(s) (acquired), left foot - M20.42, Chronic problem, Stable (1=3,2=4), Response to treatment,Improvement? Plan: * Treatment: * Procedures:?Debride Nail 6-10:?Nail debridement?Performance of this nail treatment by a nonprofessional would put this patients foot and overall health at risk. Therefore, nail debridement was performed extensively to reduce/remove overall nail length, girth, thickness, subungual debris, and necrotic tissue, by manual and/or electrical means through the use of a nail nipper and/or dremel-type roll grinder, to a more viable healthy nail plate or bed tissue 6-10. Silver nitrate used for any petechial bleeding as necessary. Definitive antifungal treatment options have been reviewed and discussed with the patient. The patient chooses, no pharmaceutical tx - 87162.?Keratoma Treatment:?Parring or Cutting of Benign Hyperkeratotic Lesion(s)?(-57) More than 4 Lesions - The Benign hyperkeratotic lesions, as described above were pared, and/or cut utilizing a sterile 15 blade, tissue nippers, and/or dremel - 55753.? * Procedure Codes:?73284 DEBRI DE NAIL, 6 OR MORE, Modifiers: XS 54447 TRIM SKIN LESIONS, OVER 4, Modifiers: XS * Preventive Medicine:? ??Counseling:?Discussion:?-13: Office or other outpatient visit for the evaluation and management of an established patient, which required a medically appropriate history and/or examination and LOW level of DECISION MAKING for: 1 STABLE ACUTE UNCOMPLICATED PROBLEM, 2 OR MORE MINOR PROBLEMS, OR 1 STABLE CHRONIC PROBLEM, THAT POSE(S) A LOW RISK FOR MORBIDITY/MORTALITY. The visit on the day of the encounter encompassed interpreting the data and educating the patient as to the nature of their condition, treatment options available according to their individual PMH, meds, allergies, and overall health/living conditions, as well as any potential risks or complications that may occur from a failure to adhere to, and participate in, the recommended course of therapy. The discussion included a complete verbal, and/or written explanation of the examination results, any x-rays taken, the proposed diagnosis, and outline of the treatment plan. A schedule for future care needs was also explained. The patient verbalized an understanding of the instructions at this time and agreed to be an active participant in their treatment. If the patient should think of any questions or concerns after the visit, I have encouraged the patient to call the office.?Shoe Gear Counseling:?A thorough inspection of the patients Rxed shoegear and inserts was performed and findings communicated. We reviewed the many important medical advantages for adhering to regularly wearing these shoe and insert accomidative devices daily as well as reviewed the fact that a failure in accepting these recommedations may be deleterious, unable to prevent, and disadvantagely result in, many pedal complications such as skin irritation, skin ulceration, infection, and even loss of toe/foot/leg/or even their life. Time was also spent reviewing the proper footcare techniques including daily skin moisturization, daily foot inspection for any interruption in skin integrity, open lesions, or sign of infection such as redness/malodor/drainage/swelling as well as daily shoe inspection for the presence of internal foreign bodies and shoe as well as insert wear. Patient questions re: shoes, inserts, and self foot inspections were answered to their satisfaction as the patient verbally confirmed a full understanding of the above information.? * Follow Up:?prn * Images: * Sign off status: Completed true * Provider:?Jordin De La Fuente DPM Date:?2023 Generated for Florinda sosa/Xavier/Wei on:?07/15/2024 09:20 AM EST History and Physical Notes * HPI (History of Present Illness) Category Sub-Category Detail Notes Category Not es Toe pain Treatments: Rx shoes At Risk footcare Pt States Last PCP Visit: Date: 4 Examination Category Sub-Category Detail Notes Category Not es Neurological SENSORY: Neurological exa m demonstrates, reduced light touch sensation, reduced sharp/dull pin prick discrimination , B/L, 5.07 monofilament test performed at plantar aspects of 5 varied sites per foot shows sensation, reduced , B/L Dermatologic SKIN FINDINGS: Skin exam reveal s Keratotic lesion(s) located at, SUB MTH (s) 1 B/L, SUB MTH (s), 5 B/L, Heel(s) B/L ULCER: Orthopedic FOOTWEAR: good condition, exhibit proper fit and accommodation for pedal deformities. OT were inspected and noted to be worn, but in good condition giving proper support at the present time DIGITAL DEFORMITIES: Digital contracture , PIPJ, 2-5 B/L, incompl-reducible with WB, or to push-up test, no over, nor underlapping Nails NAILS are: Elongated, overg rown, dystrophic, lytic, greater than 3mm thick, discolored and friable with crumbly malodorous subungual debris , 1-5 B/L
--- OUTSIDE RECORDS SUMMARY | 2024-07-15 09:21 | XMS_ITS | Patient Health Record ---
Author Organization [facility] [place] Address [address] [place] [address] Care Team Providers Care Handicrafts Teacher Name Role Phone Alexandre Orr MD Primary Care Provider Unavaila Jordin Brewster Unavailable [phone] Black, Luz Unavailable [phone] Perickhadra Alana Unavailable [phone] Allergies Allergen (clinical drug ingredient) Drug/Non Drug Allergy documented on EMR Reaction Allergy Type Onset Date Status morphine Morphine Unknown Drug Allergy Active Results Component Value Reference Range Notes HEMOGLOBIN A1C (GLYCOHEMOGLO BIN) Reviewed date:10/03/2023 11:23:31 AM Interpretation: Performing Lab: Notes/Report: HEMOGLOBIN A1C % (HH) 6.2 HEMOGLOBIN A1C (GLYCOHEMOGLO BIN) Reviewed date:01/05/2024 02:49:32 PM Interpretation: Performing Lab: Notes/Report: HEMOGLOBIN A1C % (HH) 7.3 Reason For Referral No Information Medications Medication SIG (Take, Route, Frequency, Duration) Notes Start Date End Date Status Ciclopirox Olamine 0.77 % 1 application Externally Twice a day to skin of feet including between the toes for 30 days Active metFORMIN HCl ER 500 MG Oral for 90 Active Ozempic Active Atorvastatin Calcium 10 MG Oral for 90 Active Loperamide HCl Activ e Eliquis Active Gvoke HypoPen Active Metoprolol Tartrate 50 MG Oral for 30 Active Gabapentin Active Extra Depth Orthopedic Shoes (1 Pair) with Customized Heat Molded Multidensity Innersoles (3 Pair) as directed Dx: NIDDM/Polyneuropathy (E11.42), Hammertoe Foot Deformity (M20.41,M20.42), Preulcerative Skin Lesion(s) (L85.1 01/05/2024 Active amLODIPine Besylate 5 MG 1 tablet Orally Once a day Active Soliqua 100-33 UNT-MCG/ML Subcutaneous for 50 Not-Taki ng Mens Multivitamin Ac tive Cephalexin 500 MG 1 capsule Orally maria g ry 8 hrs for 10 days Not-Taking Vitamin B12 Active Meloxicam 15 MG Oral for 30 No t-Taking Lisinopril 10 MG Oral for 30 A ctive Doxycycline Hyclate 100 MG Oral for 12 Not-Taking Balsalazide Disodium 750 MG Oral for 90 Active Celecoxib 200 MG Oral for 90 N ot-Taking Omeprazole 20 MG Oral for 90 A ctive Immunizations Vaccine Route Administration Date Status Comme nts COVID-19 Moderna Vaccine Unknown 05/25/2021 Administered First Dose: 08/28/20 Second Dose: 09/25/2020 Influenza Unknown 03/12/2018 Administered Influenza Unknown 03/12/2018 Administered Influenza Unknown 07/01/2018 Administered Influenza Unknown 05/14/2019 Administered Influenza Unknown 05/15/2020 Administered Influenza Unknown 05/28/2021 Administered Influenza Unknown 03/14/2022 Administered Social History Tobacco Use: Social History Observation [...] Are you an other tobacco user? No Problems Problem Type SNOMED Code ICD Code Onset Dates Problem Status W/U Status Risk Notes Problem Acquired hammer toe of right foot (4623455489878911 ) Other hammer toe(s) (acquired), right foot (M20.41) Active confirmed Response to treatment, Improvemen t Problem Acquired hammer toe of left foot (0395839196022743 ) Other hammer toe(s) (acquired), left foot (M20.42) Active confirmed Response to treatment, Improvemen t Problem Polyneuropathy due to type 2 diabetes mellitus (365080222) Type 2 diabetes mellitus with diabetic polyneuropathy (E11.42) Active confirmed Vital Signs Height 5ft 10in in 06/08/2024 Weight 245 lbs 06/08/2024 BMI 35.15 kg/m2 06/08/2024 Procedures Procedure Date Ordered Date Performed Result Body Sit e 76924-APPXPDP NAIL, 6 OR MORE 10/03/2023 N/A 95892-ZYTM SKIN LESIONS, OVER 4 10/03/2023 N/A 51305-NFTSVBR NAIL, 6 OR MORE 01/05/2024 N/A 00005-ACET SKIN LESIONS, OVER 4 01/05/2024 N/A 91693-QRSDVTX NAIL, 6 OR MORE 03/19/2024 N/A 68926-HTKX SKIN LESIONS, OVER 4 03/19/2024 N/A 12690-VWHYHAI NAIL, 6 OR MORE 06/08/2024 N/A 87608-XCXD SKIN LESIONS, OVER 4 06/08/2024 N/A Encounters Encounter Location Date Provider Diagnosis [address] [address] 07/29/2023 Jordin De La Fuente Cellulitis of foot, right L03.115 ; 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 L97.412 and Type 2 diabetes mellitus with diabetic polyneuropathy E11.[address] [address] 10/03/2023 Jordinmahamed De La Fuente Type 2 diabetes mellitus with diabetic polyneuropathy E11.42 ; Tinea unguium B35.1 ; Calcaneal gait R26.89 and Heel spur, right M77.31 [facility] [address] [address] 01/05/2024 Jordin De La Fuente Type 2 diabetes mellitus with diabetic polyneuropathy E11.42 ; Tinea unguium B35.1 ; Other hammer toe(s) (acquired), right foot M20.41 and Other hammer toe(s) (acquired), left foot M20.[address] [address] 03/19/2024 Jordin De La Fuente Type 2 diabetes mellitus with diabetic polyneuropathy E11.42 ; Tinea unguium B35.1 ; Other hammer toe(s) (acquired), right foot M20.41 and Other hammer toe(s) (acquired), left foot M20.42 [facility] [address] [address] 06/08/2024 Jordin De La Feunte Type 2 diabetes mellitus with diabetic polyneuropathy E11.42 ; Tinea unguium B35.1 and Tinea pedis of both feet B35.[address] [facility] [address] 10/28/2023 Jordinmahamed De La Fuente Assessments Encounter Date Diagnosis (ICD Code) Assessment Notes Treatment Notes Treatment Clinical Notes Section Notes 07/29/2023 Cellulitis of foot, right (ICD-10 - L03.115) 07/29/2023 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 (ICD-10 - L97.412) Response to treatment - Improvement 10/03/2023 Type 2 diabetes mellitus with diabetic polyneuropathy (ICD-10 - E11.42) 10/03/2023 Tinea unguium (ICD-10 - B35.1) 01/05/2024 Type 2 diabetes mellitus with diabetic polyneuropathy (ICD-10 - E11.42) 01/05/2024 Tinea unguium (ICD-10 - B35.1) 03/19/2024 Type 2 diabetes mellitus with diabetic polyneuropathy (ICD-10 - E11.42) 03/19/2024 Tinea unguium (ICD-10 - B35.1) 06/08/2024 Type 2 diabetes mellitus with diabetic polyneuropathy (ICD-10 - E11.42) 06/08/2024 Tinea unguium (ICD-10 - B35.1) 03/19/2024 Other hammer toe(s) (acquired), right foot (ICD-10 - M20.41) Response to treatment,Impro vement 07/29/2023 Type 2 diabetes mellitus with diabetic polyneuropathy (ICD-10 - E11.42) 10/03/2023 Calcaneal gait (ICD-10 - R26.89) 01/05/2024 Other hammer toe(s) (acquired), right foot (ICD-10 - M20.41) Patient Educated with: DIABETIC FOOT CARE INSTRUCTIONS. pdf (DIABETIC FOOT CARE INSTRUCTIONS. pdf) 10/03/2023 Heel spur, right (ICD-10 - M77.31) 01/05/2024 Other hammer toe(s) (acquired), left foot (ICD-10 - M20.42) 03/19/2024 Other hammer toe(s) (acquired), left foot (ICD-10 - M20.42) Response to treatment,Impro vement 06/08/2024 Tinea pedis of both feet (ICD-10 - B35.3) Plan Of Treatment Pending Test Test Name Order Date X ray : Foot, left 3V 08/27/2022 X ray : Foot, right 3V 07/02/2023 87677-QZCOOTU NAIL, 6 OR MORE 10/03/2023 19640-IPXJSFM NAIL, 6 OR MORE 06/11/2021 79560-CKYUFMI NAIL, 6 OR MORE 12/06/2021 38222-IQWJDTT NAIL, 6 OR MORE 10/30/2020 05333-CJRGUZZ NAIL, 6 OR MORE 01/08/2021 73270-XSQFBNS NAIL, 6 OR MORE 03/26/2021 38369-PZQGKKO NAIL, 6 OR MORE 03/12/2018 39180-YNYCAXY NAIL, 6 OR MORE 06/11/2018 24489-WLKHBTT NAIL, 6 OR MORE 09/10/2018 90937-EDWOVMF NAIL, 6 OR MORE 04/08/2019 81592-AOYDBDH NAIL, 6 OR MORE 04/03/2020 74272-AMBCXYH NAIL, 6 OR MORE 06/15/2020 38379-JZMJEOJ NAIL, 6 OR MORE 08/21/2020 14167-XITMVAA NAIL, 6 OR MORE 01/05/2024 13030-XUYRNOH NAIL, 6 OR MORE 03/19/2024 69702-XNKXVES NAIL, 6 OR MORE 06/08/2024 71693-Gbjreggb Plate 01/08/2021 44719-Xrnikptl Plate 06/11/2021 40577-Jwtqdjzq Plate Each Additional 47655-DKMXFOL SKIN/TISSUE 07/02/2023 31567-QZTI SKIN LESIONS, OVER 4 06/08/20 36414-CAAK SKIN LESIONS, OVER 4 03/19/20 06054-JIES SKIN LESIONS, OVER 4 01/05/20 40848-OEFM SKIN LESIONS, OVER 4 03/26/20 41102-NQQF SKIN LESIONS, OVER 4 02/08/20 21 20767-UVJY SKIN LESIONS, OVER 4 01/09/20 21 01956-KHBV SKIN LESIONS, OVER 4 06/11/20 21 69841-PEKF SKIN LESIONS, OVER 4 12/07/19 22 14841-YRCF SKIN LESIONS, OVER 4 10/03/19 24 05486-TUOC SKIN LESIONS, OVER 4 10/31/19 21 83874-MKTU SKIN LESIONS, OVER 4 06/15/20 20 70128-NPXD SKIN LESIONS, OVER 4 04/03/20 20 90196-NGAG SKIN LESIONS, OVER 4 04/08/20 19 63193-OMLG SKIN LESIONS, 2 TO 4 03/12/20 18 61807-RMHM SKIN LESIONS, 2 TO 4 09/10/19 19 13445-CAFZ SKIN LESIONS, 2 TO 4 06/11/20 18 , B1273-YCXKO/INJECT, JOINT/BURSA 0 08/27/202244363,E8114-NUH TENDON SHEATH/LIGAMENT 1 08/16/201940589,A7958-KML TENDON SHEATH/LIGAMENT 0 04/03/202037223,W4699-VHW TENDON SHEATH/LIGAMENT 0 08/21/2020 Next Appt Details Provider Name:Jordin De La Fuente , 09/10/2024 12:15:00 PM, [address] [place] [address], [place], [address], Insurance Providers Payer Name Payer Address Payer Phone Subscriber Number Group Number Insured Name Patient Relationship to Insured Coverage Start Date Coverage End Date Medicare National Govt Sv[employer] [address] [place] [address] [id number] Hosea Camacho Self - patient is the insured 4 [employer] [address] [place] [address] [phone] [id number] Hosea Camacho Self - patient is the insured Medical (General) History Medical History History ICD Code Arthritis Diabetic type II High blood pressure Reflux ( GERD) Measles Chicken pox Colitis A.Fib Right Achilles Rupture, Surgical History Surgery Date(Month/Year) shoulder surgery x 2 2007 achilles tendon repair 1992 two slip disc in neck 02/2019 three slip disc in back 03/2019 Meniscus surgery 05/2021 Right knee replacement 09/2021 Torn achilles - Left - 9 surgeries Squamous cell, 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
--- OUTSIDE RECORDS SUMMARY | 2024-07-15 09:21 | XMS_ITS ---
[facility] Address [address] [place] [address] Care Team Providers Care Aircraft Mechanic Structures Name Role Phone Kirby DEWITT, Alexandre Primary Care Provider Jordin Julian Unavailable [phone] Encounters Encounter Location Date Provider Diagnosis [facility] [address] 01/07/2024 Jordin De La Fuente Plan Of Treatment Next Appt Details Provider Name:Jordin De La Fuente , 09/10/2024 12:15:00 PM, [address] [place] [address], [phone], Progress Notes * Hosea CAMACHO MDOB:1950 (74 yo M)Acc No.[id number]:01/07/2024 Progress Note Patient:?Hosea CAMACHO Provider:?Jordin De La Fuente DPM :1950???Age:73 Y???Sex:Male Lloyd e:01/07/2024 Address:[address] [place] [address] Pcp:Alexandre Orr MD Subjective: * Chief Complaints: * ??? * Medical History:? Objective: * Vitals:? Assessment: Plan: * Treatment: * Images: * The named appointment provid er may or may not be the originator of this progress note, and it is not deemed complete until electronically signed by the appointment provider. Sign off status: Pending * Provider:?Jordin De La Fuente DPM Date:?2023 Generated for Florinda sosa/Xavier/Wei on:?07/15/2024 09:21 AM EST
--- OUTSIDE RECORDS SUMMARY | 2024-07-15 09:21 | XMS_ITS ---
Author Organization [facility] Address [address] [place] [address] Care Team Providers Care Senior Product Engineer Name Role Phone Alexandre Orr MD Primary Care Provider Jordin Julian Unavailable [phone] Allergies Allergen (clinical drug ingredient) Drug/Non Drug Allergy documented on EMR Reaction Allergy Type Onset Date Status morphine Morphine Unknown Drug Allergy Active REASON FOR VISIT At Risk Footcare, Skin Problem Medications Medication SIG (Take, Route, Frequency, Duration) Notes Start Date End Date Status Ciclopirox Olamine 0.77 % 1 application Externally Twice a day to skin of feet including between the toes for 30 days Active Cephalexin 500 MG 1 capsule Orally maria g ry 8 hrs for 10 days Not-Taking Meloxicam 15 MG Oral for 30 No t-Taking Doxycycline Hyclate 100 MG Oral for 12 Not-Taking Celecoxib 200 MG Oral for 90 N ot-Taking Atorvastatin Calcium 10 MG Oral for 90 Active Eliquis Active Metoprolol Tartrate 50 MG Oral for 30 Active Extra Depth Orthopedic Shoes (1 Pair) with Customized Heat Molded Multidensity Innersoles (3 Pair) as directed Dx: NIDDM/Polyneuropathy (E11.42), Hammertoe Foot Deformity (M20.41,M20.42), Preulcerative Skin Lesion(s) (L85.1 01/05/2024 Active Soliqua 100-33 UNT-MCG/ML Subcutaneous for 50 Not-Taki ng metFORMIN HCl ER 500 MG Oral for 90 Active Vitamin B12 Active Lisinopril 10 MG Oral for 30 A ctive Balsalazide Disodium 750 MG Oral for 90 Active Omeprazole 20 MG Oral for 90 A ctive Loperamide HCl Activ e Gvoke HypoPen Active Gabapentin Active amLODIPine Besylate 5 MG 1 tablet Orally Once a day Active Mens Multivitamin Ac tive Ozempic Active Social History Tobacco Use: Social [...] No Vital Signs Height 5ft 10in in 06/08/2024 Weight 245 lbs 06/08/2024 BMI 35.15 kg/m2 06/08/2024 Procedures Procedure Date Ordered Date Performed Result Body Sit e 21866-AGFXXNZ NAIL, 6 OR MORE 06/08/2024 N/A 16437-UGCD SKIN LESIONS, OVER 4 06/08/2024 N/A Encounters Encounter Location Date Provider Diagnosis [facility] [address] [address] 06/08/2024 Jordin De La Fuente Type 2 diabetes mellitus with diabetic polyneuropathy E11.42 ; Tinea unguium B35.1 and Tinea pedis of both feet B35.3 Assessments Encounter Date Diagnosis (ICD Code) Assessment Notes Treatment Notes Treatment Clinical Notes Section Notes 06/08/2024 Type 2 diabetes mellitus with diabetic polyneuropathy (ICD-10 - E11.42) 06/08/2024 Tinea unguium (ICD-10 - B35.1) 06/08/2024 Tinea pedis of both feet (ICD-10 - B35.3) Plan Of Treatment Medication Medication Name Sig Start Date Stop Date Notes Ciclopirox Olamine 0.77 % 1 application Externally Twice a day to skin of feet including between the toes for 30 days Pending Test Test Name Order Date 93525-LWFAHRG NAIL, 6 OR MORE 06/08/2024 53310-ZPET SKIN LESIONS, OVER 4 06/08/20 24 Next Appt Details Follow Up: prn, Reason: Provider Name:Jordin De La Fuente , 09/10/2024 12:15:00 PM, [address] [place] [address], [phone], Procedure Notes * Category Sub-Category Detail Notes Debride Nail 6-10 Nail debridement Performance o f this nail treatment by a nonprofessional would put this patients foot and overall health at risk. Therefore, debridement to affected nail(s), as described in exam, was performed extensively to reduce/remove overall nail length, girth, thickness, subungual debris, and necrotic tissue, by manual and/or electrical means through the use of a nail nipper and/or dremel-type cnc grinder, to a more viable healthy nail plate or bed tissue 6-10 nails in total. Silver nitrate was used for any petechial bleeding as necessary. Definitive antifungal treatment options, both pharmaceutical and surgical, have been reviewed and discussed with the patient. The patient solely prefers the use of intermittent/as needed professional debridement services for their nail condition and understands the need for additional periodic treatments to maintain effectiveness in symptomatic relief - 57160 Keratoma Treatment Parring or Cutting o f Benign Hyperkeratotic Lesion(s) (-57) More than 4 Lesions - The Benign hyperkeratotic lesions, ( 6) in total, locations as stated and described in exam, were pared, and/or cut utilizing a sterile 15 blade, tissue nippers, and/or power dremel instrumentation - 74212 Progress Notes * Hosea CAMACHO MDOB:1950 (74 yo M)Acc No.[id number]:06/08/2024 Progress Note Patient:?Hosea CAMACHO Provider:?Jordin De La Fuente DPM :1950???Age:74 Y???Sex:Male Lloyd e:06/08/2024 Address:[address] [place], [place] [id number] Pcp:Alexandre Orr MD Subjective: * Chief Complaints: * ???At Risk FootcareSkin Prob kelly * HPI: ???At Risk footcare:?Pt States Last PCP Visit:?Date?03/24/2024 ???Skin problems:?Nature:?scaling , redness.?Location:?B/L .?Duration:?several days.?Course:?worse.? * ROS:?General/Constitutional:?Nausea?denies.?Vomiting?denies.?Hunger Thirst?denies.?Loss appetite?denies.?Chills?denies.?Fatigue?denies.?Fever?denies.?Night Sweats?denies.?Unexplained weight loss?denies.?Unexplained [...] stimulation, neck 2023 * Hospitalization/Major Diagno stic Procedure:?[facility]- Afib from Sepsis 02/2018[facility] - Afib- ablasion * Family History:?Mother: dece [...] yes, walking. ?Marital status: . 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 * Medications:?TakingOzempic L operamide HCl Gvoke HypoPen Gabapentin amLODIPine Besylate 5 MG Tablet 1 tablet Orally Once a day Mens Multivitamin Vitamin B12 Lisinopril 10 MG Tablet [...] Foot Deformity (M20.41,M20.42), Preulcerative Skin Lesion(s) (L85.1 Taking Ozempic Taking Loperamide HCl Taking Gvoke HypoPen Taking Gabapentin Taking amLODIPine Besylate 5 MG Tablet 1 tablet Orally Once a day Taking Mens Multivitamin Taking Vitamin B12 Taking Lisinopril [...] Foot Deformity (M20.41,M20.42), Preulcerative Skin Lesion(s) (L85.1 Not- Taking/PRNSoliqua 100-33 UNT-MCG/ML Solution Pen-injector Subcutaneous Cephalexin 500 MG Capsule 1 capsule Orally every 8 hrs Meloxicam 15 MG Tablet Oral Doxycycline Hyclate 100 MG Tablet Oral Celecoxib 200 MG Capsule Oral Medication List reviewed and reconciled with the patientNot-Taking/PRN Soliqua 100-33 UNT-MCG/ML Solution Pen-injector Subcutaneous Not-Taking/PRN Cephalexin 500 MG Capsule 1 capsule Orally every 8 hrs Not-Taking/PRN Meloxicam 15 MG Tablet Oral Not-Taking/PRN Doxycycline Hyclate 100 MG Tablet Oral Not-Taking/PRN Celecoxib 200 MG Capsule Oral Medication List reviewed and reconciled with the patient * Allergies:?Morphineyes[Aller gies Verified] Objective: * Vitals:?Ht:5ft 10in, Wt:245, BMI:35.15, Shoe size:10W, BS:135, Ht-cm: 177.8 cm, Wt-k.13 kg. * ???Past Orders: ???Lab:HEMOGLOBIN A1C (GLYCO HEMOGLOBIN) (Order Date - 01/05/2024) (Collection Date & Time - 01/05/2024 02:49 PM) ? Value Reference Range ?HEMOGLOBIN A1C % [...] 1 B/L, SUB MTH (s), 5 B/L, Plantar, Heel(s) B/L , Skin shows sign(s) of, erythema, scaling, in a moccasin fashion, no fissure(s) present, B/L.? Assessment: * Assessment: 1.?Type 2 diabetes mellitus with diabetic polyneuropathy - E11.42 (Primary)???2.?Tinea unguium - B35.1???3.?Tinea pedis of both feet - B35.3???Specify :Acute problem, Uncomplicated (3),Rx drug management (4)??? Plan: * Treatment: 2.?Tinea pedis of both feet? Start Ciclopirox Olamine Cream, 0.77 %, 1 application, Externally, Twice a day to skin of feet including between the toes, 30 days, 60, Refills 2.?? * Procedures:?Debride Nail 6-10:?Nail debridement?Performance of this nail treatment by a nonprofessional would put this patients foot and overall health at risk. Therefore, debridement to affected nail(s), as described in exam, was performed extensively to reduce/remove overall nail length, girth, thickness, subungual debris, and necrotic tissue, by manual and/or electrical means through the use of a nail nipper and/or dremel-type cnc grinder, to a more viable healthy nail plate or bed tissue 6-10 nails in total. Silver nitrate was used for any petechial bleeding as necessary. Definitive antifungal treatment options, both pharmaceutical and surgical, have been reviewed and discussed with the patient. The patient solely prefers the use of intermittent/as needed professional debridement services for their nail condition and understands the need for additional periodic treatments to maintain effectiveness in symptomatic relief - 92044.?Keratoma Treatment:?Parring or Cutting of Benign Hyperkeratotic Lesion(s)?(-57) More than 4 Lesions - The Benign hyperkeratotic lesions, ( 6) in total, locations as stated and described in exam, were pared, and/or cut utilizing a sterile 15 blade, tissue nippers, and/or power dremel instrumentation - 27132.? * Procedure Codes:?23810 DEBRI DE NAIL, 6 OR MORE, Modifiers: XS 83045 TRIM SKIN LESIONS, OVER 4, Modifiers: XS [...] have encouraged the patient to call the office.?Tinea Pedis:?The patient was counseled on the diagnosis, potential etiologies, and treatment options for their skin condition. We discussed the risks and benefits of each option from performing no treatment, to utilizing OTC topical skin creams, prescription topical creams, customized compounded topical medications, and, if necessary, to utilize oral antifungal therapy. We discussed the advantages and disadvantages of each possible treatment and importance for adherence to all the recommended therapies for optimum success and avoid potential complications such as open sore/infection/possible hospitalization. We discussed the potential effectiveness of each topical preparation as well as each ones possible side effects and/or patient medication interactions if oral therapy is selected. Patient questions re: the advantages and disadvantages of each treatment choice, medication use/dosage, successful outcomes, and application consistency were reviewed and the patient verbalized that all answers were clearly understood. The patient was told they can help alleviate symptoms by utilizing moisture absorbant innersoles with activated charcoal and baking soda, applying antifungal sprays daily, aerating toe web spaces at night by putting cotton or lambs wool between the toes, alternating shoe gear daily if possible so they can dry out, changing socks at least once during the day, wearing well-ventilated shoes or sandals. The patient has decided to apply antifungal skin creams to their feet as directed. Rx was sent to their pharmacy at the time of visit.? * Follow Up:?prn * Images: * Sign off status: Completed true * Provider:?Jordin De La Fuente DPM Date:?2023 Generated for Florinda sosa/Xavier/Wei on:?07/15/2024 09:20 AM EST History and Physical Notes * HPI (History of Present Illness) Category Sub-Category Detail Notes Category Not es Skin problems Nature: scaling , redness Location: B/L Duration: several days Course: worse At Risk footcare Pt States Last PCP [...] 1 B/L, SUB MTH (s), 5 B/L, Plantar, Heel(s) B/L , Skin shows sign(s) of, erythema, scaling, in a moccasin fashion, no fissure(s) present, B/L ULCER: Nails NAILS are: Elongated, overg rown, dystrophic, lytic, greater than 3mm thick, discolored and friable with crumbly malodorous subungual debris , 1-5 B/L
--- OUTSIDE RECORDS SUMMARY | 2024-07-15 09:21 | XMS_ITS ---
Author Organization [facility] Address [address] [place] [address] Care Team Providers Care Commercial Loan Administrator Name Role Phone Alexandre Orr MD Primary Care Provider Elias De León [phone] REASON FOR VISIT refill basalazide MEDICATIONS Medication SIG (Take, Route, Frequency, Duration) Notes Start Date End Date Status Balsalazide Disodium 750 MG [address] ee times a day for 90 days 06/28/2021 Active Encounters Encounter Location Date Provider Diagnosis [facility] [address] [place] [address] 10/14/2023 Elias Bosch PLAN OF TREATMENT Medication Medication Name Sig Start Date Stop Date Notes Balsalazide Disodium 750 MG [address] ee times a day for 90 days 06/28/2021 Next Appt Details Provider Name:Elias Bosch , 08/23/2024 09:10:00 AM, [address] [place] [address] , [place], [place], [phone],
--- OUTSIDE RECORDS SUMMARY | 2024-07-15 09:22 | XMS_ITS ---
Author Organization [facility] Address [address] [place] [phone] Care Team Providers Care Lighter Name Role Phone Alexandre Orr MD Primary Care Provider Elias De León Unavailable [phone] ALLERGIES Allergen (clinical drug ingredient) Drug/Non Drug Allergy documented on EMR Reaction Allergy Type Onset Date Status morphine Morphine Sulfate Unknown Drug Allergy Active escitalopram Lexapro Unknown Drug Allergy Acti ve REASON FOR VISIT Patient presents today for Min's esophagus MEDICATIONS Medication SIG (Take, Route, Frequency, Duration) Notes Start Date End Date Status Omeprazole 20 mg TAKE ONE CAPSULE BY MOUTH EVERY MORNING Unknown Balsalazide Disodium 750 MG 3 capsules Orally Three times a day for 90 Unknown Imodium A-D 2 MG 1 tablet Orally BID Unknown Balsalazide Disodium 750 MG 3 Orally TID for 90 days 04/25/2020 Unk nown Atenolol 50mg Unknow n Omeprazole 20 MG 1 Orally Twice a day for 90 days 07/15/2023 Active metFORMIN HCl 500 MG 1 tablet with meals Orally Twice a day Unknown Balsalazide Disodium 750 MG 3 Orally Three times a day for 90 days 08/07/2022 Active Omeprazole 20 MG TAKE 1 CAPSULE BY [facility] EVERY MORNING AND TAKE 1 CAPSULE EVERY EVENING for 90 Active Tylenol Extra Strength Unknown Soliqua 100-33 UNT-MCG/ML 60 units Subcu taneous as directed Active Tamsulosin HCl Activ e Atorvastatin Calcium 10 MG 1 tablet Oral ly Once a day Active Eliquis 5 MG 1 tab Orally two ming es a day Active Lisinopril 40 MG 1 tablet Orally Once a day Active Balsalazide Disodium 750 MG 3 Orally TID for 90 days 06/28/2021 Act earline Hbab-Rkcjn-BSP-Boswellia-V it D - as directed Orally Active amLODIPine Besylate 5 MG 1 tablet Orally Once a day Active metFORMIN HCl ER 500 MG Oral for 90 Active Metoprolol Succinate ER 50 MG Oral for 90 Active Loperamide HCl 2 MG 1 capsule as needed Orally Four times a day Active VITAL SIGNS BMI 35.11 kg/m2 07/30/2023 Blood pressure systolic 000 mm Hg 07/30/19 24 Blood pressure diastolic 00 mm Hg 024 Height 69.5 in 07/30/2023 Temperature 97.9 degrees Fahrenheit 07/30/19 24 Weight 241 lb 4 oz lbs 07/30/2023 Encounters Encounter Location Date Provider Diagnosis [facility] [address] [place] [address] 07/30/2023 Elias Bosch Gastroesophageal ref lux disease without esophagitis K21.9 ; 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 ; History of adenomatous polyp of colon Z86.010 ; Encounter for screening for malignant neoplasm of colon Z12.11 and 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 ASSESSMENTS Encounter Date Diagnosis Assessment Notes Treatment Notes Treatment Clinical Notes 07/30/2023 Gastroesophageal reflux disease without esophagitis (ICD-10 - K21.9) Repeat colonoscopy and upper endoscopy in 2024 Continue same medications for the reflux and the colitis 07/30/2023 Ulcerative 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 (ICD-10 - K51.30) 07/30/2023 History of adenomato us polyp of colon (ICD-10 - Z86.010) 07/30/2023 Encounter for screening for malignant neoplasm of colon (ICD-10 - Z12.11) 07/30/2023 Min's esophagus with dysplasia (ICD-10 - K22.719) PLAN OF TREATMENT Treatment Notes Assessment Notes Gastroesophageal reflux dise ase without esophagitis Repeat colonoscopy and upper endoscopy in 2024 Continue same medications for the reflux and the colitis Next Appt Details Follow Up: prn, Reason: Provider Name:Elias Bosch , 08/23/2024 09:10:00 AM, [address] [place] [address] , [place], [place], [phone], Progress Notes * Examination Category Sub-Category Detail [...]
--- OUTSIDE RECORDS SUMMARY | 2024-07-15 09:22 | XMS_ITS | Patient Health Record ---
Author Organization [facility] Address [address] [place] [address] Care Team Providers Care Development Trainer Name Role Phone Alexandre Orr MD Primary Care Provider Elias De León Unavailable [phone] ALLERGIES Allergen (clinical drug ingredient) Drug/Non Drug Allergy documented on EMR Reaction Allergy Type Onset Date Status morphine Morphine Sulfate Unknown Drug Allergy Active escitalopram Lexapro Unknown Drug Allergy Acti ve REASON FOR REFERRAL No Information MEDICATIONS Medication SIG (Take, Route, Frequency, Duration) Notes Start Date End Date Status Balsalazide Disodium 750 MG 3 Or[address] ee times a day for 90 days 08/07/2022 Active Eliquis 5 MG 1 tab Orally two ming es a day Active Cholecalciferol 50 MCG (1999 UT) 1 tablet Orally Once a day for 30 day(s) Active Cyanocobalamin 1000 MCG 1 tablet Orally Once a day for 30 day(s) Active amLODIPine Besylate 5 MG 1 tablet Orally Once a day Active Basaglar KwikPen 100 UNIT/ML Subcutaneous for 25 Active Metoprolol Succinate ER 50 MG Oral for 90 Active Imodium A-D 2 MG 1 tablet Orally BID prn Active Omeprazole 20 MG TAKE 1 CAPSULE TWICE DAILY for 90 Active Atorvastatin Calcium 10 MG 1 tablet Oral ly Once a day Active Lisinopril 40 MG 1 tablet Orally Once a day Active Gabapentin 400 MG Oral for 90 Active Loperamide HCl 2 MG 1 capsule as needed Orally Four times a day Active Ozempic (0.25 or 0.5 MG/DOSE) 2 MG/3ML INJECT 0.5MG UNDER THE SKIN EVERY 7 DAYS Subcutaneous for 28 Active metFORMIN HCl ER 500 MG Oral for 90 Active Tylenol Extra Strength Active Dcrv-Omzeh-ZJW-Boswellia-Vi t D - as directed Orally Active metFORMIN HCl 500 MG 1 tablet with meals Orally Twice a day Active Omeprazole 20 mg TAKE ONE CAPSULE BY MOUTH EVERY MORNING Unknown IMMUNIZATIONS Vaccine Route Administration Date Status Comme nts Flu vaccine no Preserv 3 and > Unknown 06/16/2015 Admin istered Flu vaccine no Preserv 3 and > Unknown 03/18/2017 Admin istered Influenza Unknown 04/13/2018 Administered Influenza Unknown 03/14/2019 Administered Influenza Unknown 05/30/2021 Administered Influenza Unknown 07/30/2023 Administered SOCIAL HISTORY Sex Assigned At : Social History Observation Description Sex Assigned At Unknown PROBLEMS Problem Type ICD Code Onset Dates Problem Status W/U Status Risk SNOMED Code Notes Problem Encounter for screening for malignant neoplasm of colon (Z12.11) Active confirmed 981610787 Problem History of adenomatous polyp of colon (Z86.010) Active confirmed 439777216 Problem Gastroesophageal reflux disease (K21.9) Active confirmed Gastroesophagea l reflux disease (798242837) Problem Gastroesophageal reflux disease without esophagitis (K21.9) Active confirmed 790648557 Problem History of colon polyps (Z86.010) Active confirmed 968533418 Problem 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) Active confirmed 18705719 Problem Constipation, unspecified constipation type (K59.00) Active confirmed 93185726 Problem 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) Active confirmed 1666498341055243 Problem Ulcerative colitis without complications, unspecified location (K51.90) Active confirmed 88552721 Problem Hypertension, unspecified type (I10) Active confirmed 57370878 Problem Diverticulosis of colon (K57.30) Active confirmed Diverticulosi s of colon (919478913) VITAL SIGNS Temperature 97.9 degrees Fahrenheit 07/30/2023 Blood pressure diastolic 00 mm Hg 04/27/2024 Height 69.5 in 04/27/2024 Blood pressure systolic 00 mm Hg 04/27/2024 Weight 238 lbs 04/27/2024 BMI 34.64 kg/m2 04/27/2024 Encounters Encounter Location Date Provider Diagnosis [facility] [address] [place] [address] 07/30/2023 Elias Bosch Gastroesophageal ref lux disease without esophagitis K21.9 ; 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 ; History of adenomatous polyp of colon Z86.010 ; Encounter for screening for malignant neoplasm of colon Z12.11 and 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 [facility] [address] [place] [phone] 04/27/2024 Elias Bosch 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 ; Ulcerative colitis without complications, unspecified location K51.90 ; Constipation, unspecified constipation type K59.00 ; Gastroesophageal reflux disease without esophagitis K21.9 ; History of adenomatous polyp of colon Z86.010 and Encounter for screening for malignant neoplasm of colon Z12.11 [facility] [address] [place] [phone] 07/15/2023 Elias Bosch [facility] [address] [place] [address] [place] [phone] 10/14/2023 Elias Bosch ASSESSMENTS Encounter Date Diagnosis Assessment Notes Treatment Notes Treatment Clinical Notes 07/30/2023 Gastroesophageal reflux disease without esophagitis (ICD-10 - K21.9) Repeat colonoscopy and upper endoscopy in 2024 Continue same medications for the reflux and the colitis 07/30/2023 Ulcerative 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 (ICD-10 - K51.30) 04/27/2024 Min's esophagus with dysplasia (ICD-10 - K22.719) DO [...] without complications, unspecified location (ICD-10 - K51.90) 07/30/2023 History of adenomato us polyp of colon (ICD-10 - Z86.010) 04/27/2024 Constipation, unspecified constipation type (ICD-10 - K59.00) 07/30/2023 Encounter for screening for malignant neoplasm of colon (ICD-10 - Z12.11) 04/27/2024 Gastroesophageal reflux disease without esophagitis (ICD-10 - K21.9) 07/30/2023 Min's esophagus with dysplasia (ICD-10 - K22.719) 04/27/2024 History of adenomato us polyp of colon (ICD-10 - Z86.010) 04/27/2024 Encounter for screening for malignant neoplasm of colon (ICD-10 - Z12.11) PLAN OF TREATMENT Pending Test Test Name Order Date ENDOMYSIAL IGA 05/16/2011 TRANSGLUTAMINASE AB IGA 05/16/2011 TRANSGLUTAMINASE AB IGG 05/16/2011 Future Test Test Name Order Date UPPER GI ENDOSCOPY 06/16/2015 UPPER GI ENDOSCOPY 06/12/2017 COLONOSCOPY 06/12/2017 COLONOSCOPY 05/07/2018 UPPER GI ENDOSCOPY 06/13/2021 COLONOSCOPY 06/13/2021 UPPER GI ENDOSCOPY 04/27/2024 COLONOSCOPY 04/27/2024 Next Appt Details Provider Name:Elias Bailey Hiro , 08/23/2024 09:10:00 AM, [address] [place] [address] , [place], [place], [phone], Insurance Providers Payer Name Payer Address Payer Phone Subscriber Number Group Number Insured Name Patient Relationship to Insured Coverage Start Date Coverage End Date MEDICARE OF [place] [address] [place] [address] [phone] [id number] NITESH FRANK Self - patient is the insured MEDEX ATTN CLAIMS [address] [place] [phone] [id number] NITESH FRANK Self - patient is the insured MEDICAL (GENERAL) HISTORY Medical History History ICD Code Hypertension IDDM He denies any history of DE, stroke, lana g disease nor kidney disease Ulcerative colitis-most rece nt colonoscopy as below--all biopsies were negative for dysplasia in July 2011--the left-sided colitis was diagnosed in 2001-it appears to be an ulcerative colitis, although he has had perianal disease treated by Dr. Brown, which does raise the possibility of an underlying Crohn's disease instead GERD with a hiatal hernia an d Min's esophagus-this was diagnosed in July 2011-at that time biopsies showed low-grade dysplasia-his followup endoscopies in January of 2012 and 07/2013 showed only indefinite dysplasia Tubular adenomas of the colo n-colonoscopy in July 2011-was negative for polyps-there was inactive colitis from the rectum to 30 cm, with the proximal bowel appearing normal Duodenal biopsies in 2011 ra ised the suspicion for celiac disease, but were not particularly definitive-celiac serologies were negative other than a borderline elevated antigliadin antibody--- he had normal duodenal biopsies in August 2017 Hematuria --neg. w/u with Dr. Larkin Sleep apnea--uses a CPAP machine EGD in 08/2015--small area of Min's - -no dysplasia--small HH AFIB -2018--developed during sepsis at [facility] from a skin infection EGD in 08/2017--no esophagiti s and esophageal biopsies were negative for Min's mucosa nor dysplasia, duodenal biopsies were normal Colonoscopy in August 018--no active colitis and biopsies were negative for dysplasia--- it was a somewhat suspicious lesion in the transverse colon that was partially removed and marked with submucosal ink--however the pathology revealed only changes of chronic colitis and hyperplastic tissue--there was no evidence of any adenomatous changes F/U colonoscopy in August of 2018 did not reveal any sign of active colitis. Further removal of the transverse colon lesion revealed only inflammatory polyp type tissue without any component of adenoma nor dysplasia Cardiac ablation at [facility] for the Afib--successful--had a normal rhythm on EKG with PCP in 05/2021 Arthritis EGD 07/2021-small hiatal hernia, no esoph agitis, and no Min's esophagus Colonoscopy 07/2021--hyperpla stic/inflammatory polyp removed from transverse colon, no active colitis Neuropathy lower extremities Surgical History Surgery Date(Month/Year) Achilles heel surgery, with subsequent wound healing problems, although this did subsequently resolve. Surgery for hemorrhoids and anal fissure s with Dr. Brown Deviated septum 2 rotator cuff surgeries Cataract surgey Back surgery for discs 2018 C-spine for discs 2019 Right meniscus repair 2020 Umbilical hernia surgery Right total knee replacement 10/2021
--- NOTE | 2024-07-15 10:05 | AM.OFFWIN_ITS ---
Intake Vital Signs 07/15/24 10:07 Weight 236 lb BP 126/70 Blood Pressure Location Lt brachial Position Sitting Pulse 74 Pulse Source Pulse Oximeter Pulse Oximetry (%) 98 Oxygen Delivery Method Room Air Intake Visit Reasons: EP LT knee pain Intake Note: Patient here for left knee pain that started Friday when he woke up. Patient Tobacco Use Status: Never used Tobacco Allergies morphine [MORPHINE] Adverse Reaction (Mild, Verified 07/15/24 10:08) N/V Do you need a note to return to daycare/school/sports/work: No HPI EP LT knee pain HPI Details This note is constructed using voice recognition software. While every effort has been made to ensure accuracy, folder taper operator errors may have been included. The patient is a 74 year old male who presents to the clinic today with left knee pain for the past 6 day. He denies any specific injury to the area, notes that he had plantar fasciitis on the right, which he had been stretching through, and walked differently during the process. He then developed the left knee pain. He reports the pain to be in the medial aspect of the knee. He denies any redness, warmth, or obvious inflammation to the area. He denies any specific trauma to the area now or in the past. He has not tried anything to make it feel better. He is currently on blood thinner therapy, and requests an x-ray of his knee to make sure that there is no structural abnormalities. 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 Anxiety and depression Min's esophagus GERD (gastroesophageal reflux disease) Ulcerative colitis Elevated cholesterol On beta kenrick at home Arrhythmia HTN (hypertension) Diabetes Surgical History (Updated 07/05/21 @ 13:44 by Kathy Calderon, SANDEEP) History of cardiac radiofrequency ablation Hx of umbilical hernia repair H/O rotator cuff surgery S/P medial meniscus repair of right knee Hx of cervical discectomy History of back surgery Hx of bilateral cataract extraction S/P correction of deviated nasal septum Hx of Achilles tendon repair History of esophagogastroduodenoscopy (EGD) Hx of colonoscopy Social History Are you a primary hospice spiritual care coordinator to a significant other at home: No Do you presently have visiting nurse or other home services: No Alcohol intake: former Year quit: 1999 Patient Tobacco Use Status: Never used Tobacco Review of Systems Const All systems reviewed & are unremarkable except as noted in HPI and below Physical Exam Vital Signs: Last Vital Signs Pulse 74 07/15/24 10:07 BP 126/70 07/15/24 10:07 Pulse Ox 98 07/15/24 10:07 Oxygen Delivery Method Room Air 07/15/24 10:07 Const General: cooperative, healthy appearing, comfortable, no acute distress and well developed Orientation/consciousness: patient oriented x3 Limitations: no limitations HEENT Head: Yes normal to inspection Ears: hearing grossly normal bilaterally General nose exam: Normal external nose present Face and sinus: Yes normal facial exam Eyes General: appearance normal, both eyes and all related structures Resp Effort & Inspection: normal respiratory effort and able to speak in complete sentences Skin General skin exam: no rashes or lesions noted Neuro General: patient oriented x3 Extrem Other: Left knee full range of motion, tenderness to palpation medial joint line on valgus maneuver. Strength 5/5, equal bilaterally. Distal neurovascular exam intact. General: Yes normal to inspection Results Reviewed Results Reviewed: XR images contemporaneously read by me with findings of chronic degeneration noted, no obvious fracture. Assessment & Plan Assessment & Plan (1) Left knee sprain: Code(s): S83.92XA - Sprain of unspecified site of left knee, initial encounter Qualifiers: Encounter type: initial encounter Involved ligament of knee: medial collateral ligament Qualified Code(s): S83.412A - Sprain of medial collateral ligament of left knee, initial encounter Plan: Advised rest, ice, compression, elevation. Advised Tylenol for pain as patient is currently on blood thinners in his unable to take NSAIDs. Antony wrap applied in office. X-ray obtained due to patient's long-term use of blood thinners, to rule out any additional contributing factors. Advised patient to follow up with PCP as needed with worsening or failure to resolve. Plan See above for full details and plan. Coding Level of Care Code Est Pt Level 4 (68341) Diagnoses Sprain of medial collateral ligament of left knee, initial encounter S83.412A Encounter type: initial encounter Involved ligament of knee: medial collateral ligament
[2024-07-15 10:07] VITALS: BP 126/70; PULSE 74; O2SAT 98
== END 2024-07-15 11:03 | disposition home or self-care (01) ==
PROVIDERS: PCP Internal Medicine; Visit Provider Registered Nurse
DX: S83.412A Sprain of medial collateral ligament of left knee, initial encounter (principal)

== ENCOUNTER → 2024-07-15 10:37 | Outpatient (BNV) | payer MEDICARE, SELFPAY | PROVIDERS: PCP Internal Medicine; Visit Provider Radiology Diagnostic Radiology | DX: M25.562 Pain in left knee (principal) | CPT/HCPCS: 73564 ==

== ENCOUNTER 2024-08-23 06:58 | Day surgery (SDC) | payer MEDICARE, SELFPAY ==
--- OUTSIDE RECORDS SUMMARY | 2024-07-23 13:37 | XMS_ITS ---
Author Organization [facility] Address [address] [place] [address] Care Team Providers Care Diesel Service Technician Name Role Phone Alexandre Orr MD Primary Care Provider Jordin Julian Unavailable [phone] Allergies Allergen (clinical drug ingredient) Drug/Non Drug [...] Ordered Date Performed Result Body Sit e 75434-EEELFNK NAIL, 6 OR MORE 06/08/2024 N/A 31300-IXZN SKIN LESIONS, OVER 4 06/08/2024 N/A Encounters Encounter Location Date Provider Diagnosis [facility] [address] [address] 06/08/2024 Jordin De La Fuente Type 2 [...] days Pending Test Test Name Order Date 54715-[id number] NAIL, 6 OR MORE 06/08/2024 59981-JRMO SKIN LESIONS, OVER 4 06/08/20 24 Next Appt Details Follow Up: prn, Reason: Provider Name:Jordin De La Fuente , 09/10/2024 12:15:00 PM, [address] [place] [address], [phone], Procedure Notes * Category Sub-Category Detail Notes [...] use of a nail nipper and/or dremel-type jig grinder set up operator, to a more viable healthy nail plate [...] to maintain effectiveness in symptomatic relief - 45247 Keratoma Treatment Parring or Cutting o f Benign Hyperkeratotic Lesion(s) (-57) More than 4 Lesions - The Benign hyperkeratotic lesions, ( 6) in total, locations as stated and described in exam, were pared, and/or cut utilizing a sterile 15 blade, tissue nippers, and/or power dremel instrumentation - 52621 Progress Notes * Hosea CAMACHO MDOB:1950 (74 yo M)Acc No.[id number]:06/08/2024 Progress Note Patient:?Hosea CAMACHO Provider:?Jordin De La Fuente DPM :1950???Age:74 Y???Sex:Male Lloyd e:06/08/2024 Address:[address] [place], [place] [id number] Pcp:Alexandre Orr MD Subjective: * Chief Complaints: [...] stimulation, neck 2023 * Hospitalization/Major Diagno stic Procedure:?[facility]- Afib from Sepsis 02/2018[facility] - Afib- ablasion * Family History:?Mother: [...] walking. ?Marital status: . 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 * Medications:?TakingOzempic L operamide HCl Gvoke HypoPen [...] use of a nail nipper and/or dremel-type jig grinder set up operator, to a more viable healthy nail plate [...] to maintain effectiveness in symptomatic relief - 67614.?Keratoma Treatment:?Parring or Cutting of Benign Hyperkeratotic Lesion(s)?(-57) More than 4 Lesions - The Benign hyperkeratotic lesions, ( 6) in total, locations as stated and described in exam, were pared, and/or cut utilizing a sterile 15 blade, tissue nippers, and/or power dremel instrumentation - 29324.? * Procedure Codes:?35480 DEBRI DE NAIL, 6 OR MORE, Modifiers: XS 54537 TRIM SKIN LESIONS, OVER 4, Modifiers: XS [...] Fuente DPM Date:?2023 Generated for Florinda sosa/Xavier/Wei on:?07/23/2024 01:37 PM EST History and Physical Notes * HPI [...]
--- OUTSIDE RECORDS SUMMARY | 2024-07-23 13:38 | XMS_ITS ---
Author Organization [facility] Address [address] [place] [address] Care Team Providers Care Manager Respiratory Name Role Phone Alexandre Orr MD Primary Care Provider Elias De León Unavailable [phone] ALLERGIES Allergen (clinical drug ingredient) Drug/Non Drug [...] ER 500 MG Oral for 90 Active Crcv-Vyhta-FLC-Boswellia-Vi t D - as directed Orally Active Loperamide HCl 2 MG 1 capsule as needed Orally Four times a day Active VITAL SIGNS BMI 34.64 kg/m2 04/27/2024 Blood pressure systolic 00 mm Hg 04/27/20 24 Blood pressure diastolic 00 mm Hg 024 Height 69.5 in 04/27/2024 Weight 238 lbs 04/27/2024 Encounters Encounter Location Date Provider Diagnosis [facility] [address] [place] [address] 04/27/2024 Elias Bosch Escobedo's esophagus with dysplasia [...] Provider Name:Elias Bosch , 08/23/2024 09:10:00 AM, [address] [place] [address], [phone], Progress Notes * Examination Category Sub-Category Detail [...]
--- OUTSIDE RECORDS SUMMARY | 2024-07-23 13:38 | XMS_ITS ---
Author Organization [facility] Address [address] [place] [address] Care Team Providers Care Construction Craft Laborer Name Role Phone Alexandre Orr MD Primary Care Provider Elias De León [phone] REASON FOR VISIT refill basalazide MEDICATIONS Medication SIG (Take, Route, Frequency, Duration) Notes Start Date End Date Status Balsalazide Disodium 750 MG 3 Orally Thr ee times a day for 90 days 06/28/2021 Active Encounters Encounter Location Date Provider Diagnosis [facility] [address] [place] [address] 10/14/2023 Elias Bosch PLAN OF TREATMENT Medication Medication Name Sig Start Date Stop Date Notes Balsalazide Disodium 750 MG [address] Thr ee times a day for 90 days 06/28/2021 Next Appt Details Provider Name:Elias Bosch , 08/23/2024 09:10:00 AM, [address] [place] [address] , [place], [phone],
--- OUTSIDE RECORDS SUMMARY | 2024-07-23 13:38 | XMS_ITS ---
Author Organization [facility] Address [address] [place] [address] Care Team Providers Care Raker Buffing Wheel Name Role Phone Kirby DEWITT, Alexandre Primary Care Provider Jordin Julian Unavailable [phone] Encounters Encounter Location Date Provider Diagnosis [facility] [address] 01/07/2024 Jordin De La Fuente Plan Of Treatment Next Appt Details Provider Name:Jordin De La Fuente , 09/10/2024 12:15:00 PM, [address] [place] [address], [phone], Progress Notes * Hosea CAMACHO MDOB:1950 (74 yo M)Acc No.[id number]:01/07/2024 Progress Note Patient:?Hosea CAMACHO Provider:?Jordin De La Fuente DPM :1950???Age:73 Y???Sex:Male Lloyd e:01/07/2024 Address:[address] [place] [address] Pcp:Alexandre Orr MD Subjective: * Chief Complaints: [...] DPM Date:?2023 Generated for Florinda sosa/Xavier/Wei on:?07/23/2024 01:38 PM EST
--- OUTSIDE RECORDS SUMMARY | 2024-07-23 13:38 | XMS_ITS ---
Author Organization [facility] Address [address] [place] [address] Care Team Providers Care Basic Acoustic Analyst Name Role Phone Alexandre Orr MD Primary Care Provider Jordin Julian Unavailable [phone] Allergies Allergen (clinical drug ingredient) Drug/Non Drug [...] Ordered Date Performed Result Body Sit e 00241-ECCOVNC NAIL, 6 OR MORE 03/19/2024 N/A 50335-ESSG SKIN LESIONS, OVER 4 03/19/2024 N/A Encounters Encounter Location Date Provider Diagnosis [facility] [address] [address] 03/19/2024 Jordin De La Fuente Type 2 [...] Treatment Pending Test Test Name Order Date 26426-YCUDARM NAIL, 6 OR MORE 03/19/2024 87862-TAKV SKIN LESIONS, OVER 4 03/19/20 24 Next Appt Details Follow Up: prn, Reason: Provider Name:Jordin De La Fuente , 09/10/2024 12:15:00 PM, [address] [place] [address], [phone], Procedure Notes * Category Sub-Category Detail Notes Debride Nail 6-10 Nail debridement Performance o f this nail treatment by a nonprofessional would put this patients foot and overall health at risk. Therefore, nail debridement was performed extensively to reduce/remove overall nail length, girth, thickness, subungual debris, and necrotic tissue, by manual and/or electrical means through the use of a nail nipper and/or dremel-type grinder operator surface tool, to a more viable healthy nail plate or bed tissue 6-10. Silver nitrate used for any petechial bleeding as necessary. Definitive antifungal treatment options have been reviewed and discussed with the patient. The patient chooses, no pharmaceutical tx - 31724 Keratoma Treatment Parring or Cutting o f Benign Hyperkeratotic Lesion(s) (-57) More than 4 Lesions - The Benign hyperkeratotic lesions, as described above were pared, and/or cut utilizing a sterile 15 blade, tissue nippers, and/or dremel - 92208 Progress Notes * Hosea CAMACHO MDOB:1950 (73 yo M)Acc No.[id number]:03/19/2024 Progress Note Patient:?DougHosea vaca Lynn Provider:?Jordin De La Fuente DPM :1950???Age:73 Y???Sex:Male Lloyd e:03/19/2024 Address:[address] [place], [place] [phone] Pcp:Alexandre Orr MD Subjective: * Chief Complaints: [...] stimulation, neck 2023 * Hospitalization/Major Diagno stic Procedure:?[facility]- Afib [facility] Sepsis 02/2018[facility] - Afib- ablasion * Family History:?Mother: [...] yes, walking. ?Marital status: . 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 * Medications:?TakingOzempic L operamide HCl Gvoke [...] use of a nail nipper and/or dremel-type grinder operator surface tool, to a more viable healthy nail plate or bed tissue 6-10. Silver nitrate used for any petechial bleeding as necessary. Definitive antifungal treatment options have been reviewed and discussed with the patient. The patient chooses, no pharmaceutical tx - 69277.?Keratoma Treatment:?Parring or Cutting of Benign Hyperkeratotic Lesion(s)?(-57) More than 4 Lesions - The Benign hyperkeratotic lesions, as described above were pared, and/or cut utilizing a sterile 15 blade, tissue nippers, and/or dremel - 64990.? * Procedure Codes:?24957 DEBRI DE NAIL, 6 OR MORE, Modifiers: XS 19037 TRIM SKIN LESIONS, OVER 4, Modifiers: XS [...]
--- OUTSIDE RECORDS SUMMARY | 2024-07-23 13:38 | XMS_ITS | Patient Health Record ---
Author Organization [facility] Address [address] [place] [address] Care Team Providers Care Career Center Director Name Role Phone Alexandre Orr MD Primary Care Provider Unavaila Jordin Brewster Unavailable [phone] Black, Luz Unavailable [phone] Perickhadra Alana Unavailable [phone] Allergies Allergen (clinical drug ingredient) Drug/Non Drug [...] Problem Acquired hammer toe of right foot (5654381491101457 ) Other hammer toe(s) (acquired), right foot (M20.41) Active confirmed Response to treatment, Improvemen t Problem Acquired hammer toe of left foot (5815842511934655 ) Other hammer toe(s) (acquired), left foot (M20.42) Active confirmed Response to treatment, Improvemen t Problem Polyneuropathy due to type 2 diabetes mellitus (680216339) Type 2 diabetes mellitus with diabetic polyneuropathy (E11.42) Active confirmed Vital Signs Height 5ft 10in in 06/08/2024 Weight 245 lbs 06/08/2024 BMI 35.15 kg/m2 06/08/2024 Procedures Procedure Date Ordered Date Performed Result Body Sit e 32248-OKMTRCH NAIL, 6 OR MORE 10/03/2023 N/A 51291-IOKD SKIN LESIONS, OVER 4 10/03/2023 N/A 31464-SWSORJD NAIL, 6 OR MORE 01/05/2024 N/A 97366-PWLZ SKIN LESIONS, OVER 4 01/05/2024 N/A 93534-YVDJAAJ NAIL, 6 OR MORE 03/19/2024 N/A 01110-CBLT SKIN LESIONS, OVER 4 03/19/2024 N/A 90026-YFDJHJN NAIL, 6 OR MORE 06/08/2024 N/A 62749-QJIQ SKIN LESIONS, OVER 4 06/08/2024 N/A Encounters Encounter Location Date Provider Diagnosis [address] [address] 07/29/2023 Jordin De La Fuente Cellulitis of foot, right L03.115 ; 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 L97.412 and Type 2 diabetes mellitus with diabetic polyneuropathy E11.[address] [address] 10/03/2023 Jordinmahamed De La Fuente Type 2 diabetes mellitus with diabetic polyneuropathy E11.42 ; Tinea unguium B35.1 ; Calcaneal gait R26.89 and Heel spur, right M77.31 [facility] [address] [address] 01/05/2024 Jordin De La Fuente Type 2 diabetes mellitus with diabetic polyneuropathy E11.42 ; Tinea unguium B35.1 ; Other hammer toe(s) (acquired), right foot M20.41 and Other hammer toe(s) (acquired), left foot M20.[address] [address] 03/19/2024 Jordin De La Fuente Type 2 diabetes mellitus with diabetic polyneuropathy E11.42 ; Tinea unguium B35.1 ; Other hammer toe(s) (acquired), right foot M20.41 and Other hammer toe(s) (acquired), left foot M20.42 [facility] [address] [address] 06/08/2024 Jordin De La Fuente Type 2 diabetes mellitus with diabetic polyneuropathy E11.42 ; Tinea unguium B35.1 and Tinea pedis of both feet B35.[facility] [address] 10/28/2023 Jordinmahamed De La Fuente Assessments Encounter [...] X ray : Foot, right 3V 07/02/2023 18292-MPTEFCR NAIL, 6 OR MORE 10/03/2023 02647-TELLVIR NAIL, 6 OR MORE 06/11/2021 61871-RSAZOZX NAIL, 6 OR MORE 12/06/2021 72174-BTKXCOW NAIL, 6 OR MORE 10/30/2020 59228-XSAIGPL NAIL, 6 OR MORE 01/08/2021 97230-HECJRFA NAIL, 6 OR MORE 03/26/2021 01768-SGFXCMC NAIL, 6 OR MORE 03/12/2018 32450-ABJODSK NAIL, 6 OR MORE 06/11/2018 58437-BCZAFHW NAIL, 6 OR MORE 09/10/2018 86911-FNLTRPY NAIL, 6 OR MORE 04/08/2019 61017-OWKNZCB NAIL, 6 OR MORE 04/03/2020 44090-KCHLXAT NAIL, 6 OR MORE 06/15/2020 01570-BBZESOS NAIL, 6 OR MORE 08/21/2020 43014-FDDUMOH NAIL, 6 OR MORE 01/05/2024 93755-VXFVRFZ NAIL, 6 OR MORE 03/19/2024 47498-EQPWBQJ NAIL, 6 OR MORE 06/08/2024 29576-Moghsfmk Plate 01/08/2021 79450-Etaviicb Plate 06/11/2021 54343-Altbzbes Plate Each Additional 58703-YDUZCRV SKIN/TISSUE 07/02/2023 29576-UECI SKIN LESIONS, OVER 4 06/08/20 42885-GIGR SKIN LESIONS, OVER 4 03/19/20 31850-WELF SKIN LESIONS, OVER 4 01/05/20 44691-ZHDP SKIN LESIONS, OVER 4 03/26/20 10397-UYKT SKIN LESIONS, OVER 4 02/08/20 21 17458-CQIL SKIN LESIONS, OVER 4 01/09/20 21 27064-QNSH SKIN LESIONS, OVER 4 06/11/20 21 77909-TAXX SKIN LESIONS, OVER 4 12/07/19 22 61609-MJMS SKIN LESIONS, OVER 4 10/03/19 24 43696-PMBS SKIN LESIONS, OVER 4 10/31/19 21 52636-BVJH SKIN LESIONS, OVER 4 06/15/20 20 37250-RNXI SKIN LESIONS, OVER 4 04/03/20 20 35015-DYCF SKIN LESIONS, OVER 4 04/08/20 19 55872-STOU SKIN LESIONS, 2 TO 4 03/12/20 18 63570-PNXV SKIN LESIONS, 2 TO 4 09/10/19 19 05950-PRPA SKIN LESIONS, 2 TO 4 06/11/20 18 , Z8274-SQEIF/INJECT, JOINT/BURSA 0 08/27/202283552,B9759-JWD TENDON SHEATH/LIGAMENT 1 08/16/201970006,C1076-WAX TENDON SHEATH/LIGAMENT 0 04/03/202055253,Z9174-VID TENDON SHEATH/LIGAMENT 0 08/21/2020 Next Appt Details Provider Name:Jordin De La Fuente , 09/10/2024 12:15:00 PM, [address] [place] [address], [place], [address], Insurance Providers Payer Name Payer Address Payer Phone Subscriber Number Group Number Insured Name Patient Relationship to Insured Coverage Start Date Coverage End Date Medicare National [employer]t [employer] [address] [facility] [place] [address] [id number] Hosea Camacho Self - patient is the insured 4 [employer] [address] [place] [address] [id number] Hosea Camacho Self - patient is the [...] stimulation, neck 2023 Hospitalization History Reason Date(Month/Year) [facility] - Afib- ablasion [facility]- [facility] 02/2018
--- OUTSIDE RECORDS SUMMARY | 2024-07-23 13:39 | XMS_ITS | Patient Health Record ---
Author Organization [facility] Address [address] [place] [address] Care Team Providers Care General Road Production Manager Name Role Phone Alexandre Orr MD Primary Care Provider Elias De León Unavailable [phone] ALLERGIES Allergen (clinical drug ingredient) Drug/Non Drug [...] for 90 Active Tylenol Extra Strength Active Edpe-Eyiwc-UWP-Boswellia-Vi t D - as directed Orally Active [...] malignant neoplasm of colon (Z12.11) Active confirmed 233559464 Problem History of adenomatous polyp of colon (Z86.010) Active confirmed 627003223 Problem Gastroesophageal reflux disease (K21.9) Active confirmed Gastroesophagea l reflux disease (220911747) Problem Gastroesophageal reflux disease without esophagitis (K21.9) Active confirmed 199685325 Problem History of colon polyps (Z86.010) Active confirmed 374982723 Problem 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) Active confirmed 81044045 Problem Constipation, unspecified constipation type (K59.00) Active confirmed 60110466 Problem 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) Active confirmed 1714392359660792 Problem Ulcerative colitis without complications, unspecified location (K51.90) Active confirmed 19183996 Problem Hypertension, unspecified type (I10) Active confirmed 87637829 Problem Diverticulosis of colon (K57.30) Active confirmed Diverticulosi s of colon (483235939) VITAL SIGNS Temperature 97.9 degrees Fahrenheit 07/30/2023 Blood pressure diastolic 00 mm Hg 04/27/2024 Height 69.5 in 04/27/2024 Blood pressure systolic 00 mm Hg 04/27/2024 Weight 238 lbs 04/27/2024 BMI 34.64 kg/m2 04/27/2024 Encounters Encounter Location Date Provider Diagnosis [facility] [address] [place] [address] 07/30/2023 Elias Bosch Gastroesophageal ref lux disease without esophagitis K21.9 ; 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 ; History of adenomatous polyp of colon Z86.010 ; Encounter for screening for malignant neoplasm of colon Z12.11 and 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 [facility] [address] [place] [address] 04/27/2024 Elias Bosch 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 ; Ulcerative colitis without complications, unspecified location K51.90 ; Constipation, unspecified constipation type K59.00 ; Gastroesophageal reflux disease without esophagitis K21.9 ; History of adenomatous polyp of colon Z86.010 and Encounter for screening for malignant neoplasm of colon Z12.11 [facility] [address] [place] [address] 10/14/2023 Elias Bosch ASSESSMENTS Encounter Date Diagnosis [...] COLONOSCOPY 04/27/2024 Next Appt Details Provider Name:Elias Bosch , 08/23/2024 09:10:00 AM, [address] [place] [address] , [place], [place], [phone], Insurance Providers Payer Name Payer Address Payer Phone Subscriber Number Group Number Insured Name Patient Relationship to Insured Coverage Start Date Coverage End Date MEDICARE OF [place] [address] [place] [address] [id number] NITESH FRANK Self - patient is the insured [employer] CLAIMS [address] [place] [address] [id number] NITESH FRANK Self - patient is the [...] of Min's - -no dysplasia--small HH AFIB -2017--[facility] [...] of adenoma nor dysplasia Cardiac ablation at [facility] for the Afib--successful--had a normal rhythm on [...]
--- OUTSIDE RECORDS SUMMARY | 2024-07-23 13:39 | XMS_ITS ---
Author Organization [facility] Address [address] [place] [address] Care Team Providers Care Branch Operations Coordinator Name Role Phone Alexandre Orr MD Primary Care Provider Elias De León Unavailable [phone] ALLERGIES Allergen (clinical drug ingredient) Drug/Non Drug [...] Omeprazole 20 MG [address]KE [address] [facility] EVERY MORNING AND TAKE 1 CAPSULE EVERY [...] TID for 90 days 06/28/2021 Act earline Hnsv-Vuiez-ASB-Boswellia-V it D - as directed Orally Active [...] 07/30/2023 Encounters Encounter Location Date Provider Diagnosis [facility] [address] [place] [address] 07/30/2023 Elias Bosch Gastroesophageal ref lux disease [...] Provider Name:Elias Bosch , 08/23/2024 09:10:00 AM, [address] [place] [address] , [place], [phone], Progress Notes * Examination Category Sub-Category Detail [...]
[2024-08-19 14:10] VITALS: BMI 34.6
--- NOTE | 2024-08-20 10:29 | P.CONAN_ITS ---
Documented by User: Joana Hicks NP 08/20/24 10:30 HPI - Anesthesia Eval Consult details Narrative: 74yo M for Upper Endoscopy and Colonoscopy Eliquis for afib Anesthesia Pre-Procedure Meds Is the patient on any of the following meds?: GLP1/DPP4 PMFSH Active Problems Active Problems: All Active Problems Postlaminectomy syndrome, cervical (Acute) Spondylosis of cervical region without myelopathy or radiculopathy (Acute) Neck pain (Acute) Cervical spine degeneration (Acute) Back pain (Acute) Past Medical History Medical History History of atrial fibrillation Hx of sepsis Hx of skin cancer, basal cell 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 Anxiety and depression Min's esophagus GERD (gastroesophageal reflux disease) Ulcerative colitis Elevated cholesterol On beta kenrick at home Arrhythmia HTN (hypertension) Diabetes Family History Family history of problems with anesthesia: No Surgical History Surgical History History of cardiac radiofrequency ablation Hx of umbilical hernia repair H/O rotator cuff surgery S/P medial meniscus repair of right knee Hx of cervical discectomy History of back surgery Hx of bilateral cataract extraction S/P correction of deviated nasal septum Hx of Achilles tendon repair History of esophagogastroduodenoscopy (EGD) Hx of colonoscopy History of Problems with Anesthesia: No Social History Social History Are you a primary childcare teacher to a significant other at home: No Do you presently have visiting nurse or other home services: No Alcohol intake: former Year quit: 1999 Patient Tobacco Use Status: Never used Tobacco Advance Directives: No Advance Directives Information Provided: Yes Meds Allergies Allergy/AdvReac Type Severity Reaction Status Date / Time morphine [MORPHINE] AdvReac Mild N/V Verified 07/15/24 10:08 Home Medications ?Medication ?Instructions ?Recorded ?Confirmed ?Last Taken ?Type acetaminophen 500 mg tablet 1,000 mg PO Q6H PRN Pain 07/05/21 08/19/24 Unknown History apixaban 5 mg tablet (Eliquis) 5 mg PO BID 07/05/21 08/19/24 07/14/21 History atorvastatin 10 mg tablet 10 mg PO BEDTIME 07/05/21 08/19/24 Unknown History balsalazide 750 mg capsule 2,250 mg PO TID 07/05/21 08/19/24 Unknown History lisinopril 40 mg tablet 40 mg PO DAILY 07/05/21 08/19/24 Unknown History metoprolol succinate 50 mg capsule 50 mg PO BEDTIME 07/05/21 08/19/24 Unknown History sprinkle, ext. release 24 hr deyiixirhobj-dvqvdfvf-gunkfq tablet 1 tab PO DAILY 07/05/21 08/19/24 Unknown History omeprazole 20 mg capsule,delayed 20 mg PO BID 07/05/21 08/19/24 07/16/21 History release tamsulosin 0.4 mg capsule 0.4 mg PO BEDTIME 07/05/21 08/19/24 Unknown History tizanidine 2 mg capsule 2 mg PO TID PRN Muscle Spasm 07/05/21 08/19/24 Unknown History amlodipine 5 mg tablet 2.5 mg PO DAILY 09/17/23 08/19/24 Unknown History cefpodoxime 100 mg tablet 200 mg PO BID 09/17/23 08/19/24 Unknown History loperamide 2 mg tablet 2 mg PO Q6H PRN loose stools 09/17/23 08/19/24 Unknown History trospium 20 mg tablet 20 mg PO BID 09/17/23 08/19/24 Unknown History metformin 500 mg tablet,extended 1,000 mg PO BID 10/09/23 08/19/24 Unknown History release 24 hr gabapentin 300 mg capsule 300 mg PO DAILY 12/15/23 08/19/24 Unknown History insulin glargine 100 unit/mL (3 45 unit subcut QAM 08/19/24 08/19/24 Unknown History mL) subcutaneous pen (Basaglar KwikPen U-100 Insulin) semaglutide 1 mg/dose (4 mg/3 mL) 1 mg subcut QWEEK 08/19/24 08/19/24 Unknown History subcutaneous pen injector (Ozempic) Exam Height,Weight and Vital Signs: Height 5 ft 9.5 in Weight 107.955 kg Assessment and Plan Assessment Anesthesia Assessment: Chart Reviewed Final Anesthetic Review Family History of Problems with Anesthesia: No History of Problems with Anesthesia: No Documented by User: Bre Nicholas MD 08/23/24 08:43 HPI - Anesthesia Eval Consult details Narrative: 74yo M for Upper Endoscopy and Colonoscopy Eliquis for afib. 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 Anxiety and depression Min's esophagus GERD (gastroesophageal reflux disease) Ulcerative colitis Elevated cholesterol On beta kenrick at home Arrhythmia HTN (hypertension) Diabetes Family History Family history of problems with anesthesia: No Surgical History Surgical History History of cardiac radiofrequency ablation Hx of umbilical hernia repair H/O rotator cuff surgery S/P medial meniscus repair of right knee Hx of cervical discectomy History of back surgery Hx of bilateral cataract extraction S/P correction of deviated nasal septum Hx of Achilles tendon repair History of esophagogastroduodenoscopy (EGD) Hx of colonoscopy History of Problems with Anesthesia: No Social History Social History Are you a primary childcare teacher to a significant other at home: No Do you presently have visiting nurse or other home services: No Alcohol intake: former Year quit: 1999 Patient Tobacco Use Status: Never used Tobacco Advance Directives: No Advance Directives Information Provided: Yes Meds Allergies Allergy/AdvReac Type Severity Reaction Status Date / Time morphine [MORPHINE] AdvReac Mild N/V Verified 07/15/24 10:08 Home Medications ?Medication ?Instructions ?Recorded ?Confirmed ?Last Taken ?Type acetaminophen 500 mg tablet 1,000 mg PO Q6H PRN Pain 07/05/21 08/19/24 Unknown History apixaban 5 mg tablet (Eliquis) 5 mg PO BID 07/05/21 08/19/24 07/14/21 History atorvastatin 10 mg tablet 10 mg PO BEDTIME 07/05/21 08/19/24 Unknown History balsalazide 750 mg capsule 2,250 mg PO TID 07/05/21 08/19/24 Unknown History lisinopril 40 mg tablet 40 mg PO DAILY 07/05/21 08/19/24 Unknown History metoprolol succinate 50 mg capsule 50 mg PO BEDTIME 07/05/21 08/19/24 Unknown History sprinkle, ext. release 24 hr gvuwpllaxbsi-wlqpvfey-pstflg tablet 1 tab PO DAILY 07/05/21 08/19/24 Unknown History omeprazole 20 mg capsule,delayed 20 mg PO BID 07/05/21 08/19/24 07/16/21 History release tamsulosin 0.4 mg capsule 0.4 mg PO BEDTIME 07/05/21 08/19/24 Unknown History tizanidine 2 mg capsule 2 mg PO TID PRN Muscle Spasm 07/05/21 08/19/24 Unknown History amlodipine 5 mg tablet 2.5 mg PO DAILY 09/17/23 08/19/24 Unknown History cefpodoxime 100 mg tablet 200 mg PO BID 09/17/23 08/19/24 Unknown History loperamide 2 mg tablet 2 mg PO Q6H PRN loose stools 09/17/23 08/19/24 Unknown History trospium 20 mg tablet 20 mg PO BID 09/17/23 08/19/24 Unknown History metformin 500 mg tablet,extended 1,000 mg PO BID 10/09/23 08/19/24 Unknown History release 24 hr gabapentin 300 mg capsule 300 mg PO DAILY 12/15/23 08/19/24 Unknown History insulin glargine 100 unit/mL (3 45 unit subcut QAM 08/19/24 08/19/24 Unknown History mL) subcutaneous pen (Mau Lopez U-100 Insulin) semaglutide 1 mg/dose (4 mg/3 mL) 1 mg subcut QWEEK 08/19/24 08/19/24 Unknown History subcutaneous pen injector (Ozempic) Exam Height,Weight and Vital Signs: Height 5 ft 9.5 in Weight 107.955 kg Vital Signs Pulse Resp BP Pulse Ox O2 Del Method 08/23/24 08:15 69 16 126/58 L 98 Room Air Pertinent Lab Results Pertinent Lab Results: POC 120mg% Airway Mallampati Class: II TM Dist: >3cm Neck ROM: Limited Denture: Upper and Lower Heart: RRR + murmur Lungs: CTAB Assessment and Plan Assessment Anesthesia Assessment: Anesthesia Plan Discussed and Chart Reviewed Final Anesthetic Review Family History of Problems with Anesthesia: No History of Problems with Anesthesia: No NPO: Yes ASA Class: III Final Preanesthetic Review: No Changes in Pt Med Stat, Meds/Allgs Chart Reviewed, Consent Obtained/Reviewed and Anes Risks/Benef Reviewed Patient Risk: Intermediate Procedure Risk: Low Assessment/Block/Sedation in SS: Assess/Block/Sedation-SS Anesthetic Plan Anesthetic Plan: TIVA Disposition: Standard PACU
[2024-08-23 08:13] VITALS: BMI 32.7
[2024-08-23 08:15] VITALS: BP 126/58; PULSE 69; RESP 16; O2SAT 98
[2024-08-23 09:45] VITALS: BP 104/58; PULSE 82; RESP 18; TEMP 36.1; O2SAT 97
[2024-08-23 09:47] LABS: Glucose, Whole Blood 120 mg/dL (60-115)
--- NOTE | 2024-08-23 09:50 | P.BOP_ITS ---
Brief Operative Note Date of Service: 08/23/24 Pre-op diagnosis: Min's, Ulcerative colitis, Screening Post-op diagnosis: other (Small hiatal hernia, Diverticulosis) Procedure: EGD with biopsies, Colonoscopy to the cecum with biopsies Surgeon: Elias Bosch MD Anesthesia: MAC Was an Risk Control Representative used for this Procedure?: No Estimated blood loss (mL): 2.0 Pathology: other (A. EG Junction at 39cm B. Ascending colon C. Transverse colon D. Descending colon E. Sigmoid colon F. Rectum) Condition: stable Disposition: PACU
[2024-08-23 10:00] VITALS: BP 137/70; PULSE 69; RESP 18; O2SAT 97
[2024-08-23 10:13] VITALS: BP 133/74; PULSE 69; RESP 18; TEMP 36.1; O2SAT 97
--- NOTE | 2024-08-23 11:59 | OP_ITS ---
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 Full consent has been obtained from him for both procedures, including risks of bleeding and perforation. PREOPERATIVE DIAGNOSIS: POSTOPERATIVE DIAGNOSIS: PROCEDURE PERFORMED: ESTIMATED BLOOD LOSS: COMPLICATIONS: ANESTHESIA: Medication used, monitored anesthesia care. ASSISTANTS: SPECIMENS: PREOPERATIVE DIAGNOSES: Gastroesophageal reflux, Min's esophagus, ulcerative colitis, colorectal cancer screening. POSTOPERATIVE DIAGNOSES: Gastroesophageal reflux, Min's esophagus, ulcerative colitis, colorectal cancer screening, small hiatal hernia, diverticulosis, internal hemorrhoids. PROCEDURES PERFORMED: Esophagogastroduodenoscopy with biopsies and colonoscopy to the cecum with multiple biopsies. DESCRIPTION OF PROCEDURE: The patient was placed in the left lateral decubitus position. The Olympus video gastroscope was passed in the posterior oropharynx and upper esophagus under direct vision. The scope was passed slowly to the distal esophagus. The gastroesophageal junction appeared at 39 cm. There was some very minimal irregularity consistent with reflux and less than 1 cm areas of Min's appearing mucosa. There was no esophagitis nor any lesions. The scope entered the stomach. There was a small hiatal hernia. The scope was advanced to the pylorus and the duodenum was cannulated to the descending portion. The duodenum including the bulb appeared normal without mass or ulceration. The scope was withdrawn back in the stomach. The gastric antrum and body appeared normal with good peristalsis. The scope was retroflexed visualizing the proximal stomach carefully, which appeared normal, without any sign of mass or ulceration. The scope was straightened and withdrawn back to the esophagus. Multiple biopsies were obtained at the EG junction at 39 cm. Proximal to this, the esophageal mucosa appeared normal. The scope was withdrawn from the patient. He was turned around for the colonoscopy. The digital rectal exam revealed no abnormalities. The Olympus video pediatric colonoscope was entered into the rectum and advanced easily to the cecum. Once in the cecum, I did identify normal-appearing cecal pouch with a normal-appearing ileocecal valve. The appendiceal orifice appeared normal. There was transillumination of light deep in the right lower quadrant. The entire cecum and ileocecal valve appeared normal. The scope was slowly withdrawn assessing all mucosal surfaces carefully. For the most part, preparation was very good throughout the colon, although there was some small areas of liquid stool, which had to be irrigated and suctioned away. I did not visualize any sign of polyps, active colitis, nor angiodysplasia. Previously placed submucosal ink high were noted in the transverse colon, but I did not visualize any sign of residual polyp tissue. I did not visualize any polyps in general. Random biopsies were obtained in the ascending colon, transverse colon, descending colon, sigmoid colon, and rectum. In the rectum, the scope was retroflexed visualizing some internal hemorrhoids. Of note, some sigmoid diverticulosis was also noted. The scope was then withdrawn from the patient. He tolerated both procedures well and was returned to recovery area in stable condition. IMPRESSION: 1. Gastroesophageal reflux, small hiatal hernia, history of Min's esophagus, rule out dysplasia. 2. History of ulcerative colitis, rule out dysplasia. 3. Diverticulosis. 4. Internal hemorrhoids. PLAN: The results of the biopsies will be checked. If there is no evidence of any dysplasia within the Min's esophagus, as has been the case on at least his last 2 or 3 upper endoscopies, then I do not think he will need any further upper endoscopies. If there is no evidence of any dysplasia in the colon biopsies, then I do not think he would need any further screening colonoscopies either. He will continue his current regimen of omeprazole for his reflux and the balsalazide for his ulcerative colitis. If things are stable, he will see me in 1 year for a followup office visit. This has been discussed with his . He was advised to resume his Eliquis in 48 hours. MD NATHALIE Bowling/FAVIOLA / [id number]
== END 2024-08-23 10:41 | disposition home or self-care (01) ==
PROVIDERS: PCP Internal Medicine; Visit Provider Internal Medicine
PROC: (CPT 45380; principal; 2024-08-23 08:10)
DX: Z12.11 Encounter for screening for malignant neoplasm of colon (principal); K57.30 Diverticulosis of large intestine without perforation or abscess without bleeding; K64.8 Other hemorrhoids; Z86.0100 Personal history of colon polyps, unspecified; K44.9 Diaphragmatic hernia without obstruction or gangrene; K21.9 Gastro-esophageal reflux disease without esophagitis; K51.90 Ulcerative colitis, unspecified, without complications; K22.719 Barrett's esophagus with dysplasia, unspecified; E11.9 Type 2 diabetes mellitus without complications; I10 Essential (primary) hypertension; E78.5 Hyperlipidemia, unspecified; I48.91 Unspecified atrial fibrillation; G47.33 Obstructive sleep apnea (adult) (pediatric); Z99.89 Dependence on other enabling machines and devices; Z79.84 Long term (current) use of oral hypoglycemic drugs; Z79.02 Long term (current) use of antithrombotics/antiplatelets; Z79.899 Other long term (current) drug therapy; Z79.01 Long term (current) use of anticoagulants
CPT/HCPCS: 45380; 43239; 82947; 88305; 88313; J1596; J2003; J2704